=== PATIENT | male | born 1940 | race Caucasian/White ===

== ENCOUNTER 2017-09-21 14:39 | Emergency (ER) | payer OTHER ==
[~2017-09-21] VITALS: Ht 170.2 cm; Wt 102.4 kg
[~2017-09-21 14:39] MED LIST: LRT5 PO; STOMACH PILL
[2017-09-21 14:46] VITALS: TEMP 36.3; Ht 170.2 cm; Wt 102.4 kg
[2017-09-21] MEDS ORDERED: DEXAMETHASONE SOD INJ 4 MG/ML VIAL IV STA (15:17)
[2017-09-21] MEDS ORDERED: ACETAMINOPHEN 500 MG TAB PO STA (15:17)
--- NOTE | 2017-09-21 15:24 | EMERGENCY ROOM VISIT NOTE ---
History Report prepared by Rosemary: Oleksandr Virgen Under the Supervision of: Dr. Kaushik Olivier M.D. First contact with patient: 14:52 Chief Complaint: COUGH Stated Complaint: COUGH, HEADACHE Nursing Triage Summary: has been sick with cough and wheezing was started on prednisone and doxycicline and felt better until the steroids were completed. now with head ache cough and wheezing continues. History of Present Illness The patient is a 77 year old white male with no past medical history who presents to the ED with a cc of a constant productive cough beginning a week ago. Pt was evaluated by PCP and was given prednisone and doxycycline. He notes he finished prednisone yesterday and is still on doxycycline. Pt is using an inhaler at home, but it is not helping. Positive coughing up white phlegm and a headache. 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 A total of ten systems were reviewed and were otherwise negative. Past Medical & Surgical Medical Problems: (1) No Known Active Medical Problems Family History Patient reports no known family medical history. Social History Smoking Status: Former Smoker Marital Status: Housing Status: lives alone Occupation Status: retired Current/Historical Medications Scheduled Doxycycline Hyclate (Doxycycline Hyclate), 1 TAB PO BID Scheduled PRN Albuterol (Ventolin Hfa), 2 PUFFS INH QID PRN for Wheezing Albuterol Hfa (Ventolin Hfa), 2 PUFFS INH Q4-6HRS PRN for SOB/Wheezing Meloxicam (Mobic), 1-2 TABS PO DAILY PRN for Pain Allergies Coded Allergies: No Known Allergies (Verified , 10/28/02) Physical Exam Vital Signs Date Time Temp Pulse Resp B/P (MAP) Pulse Ox O2 Delivery O2 Flow Rate FiO2 09/21/17 17:23 54 18 144/89 96 Room Air 09/21/17 16:50 78 18 135/92 98 Room Air 09/21/17 16:24 60 09/21/17 15:47 95 Room Air 09/21/17 15:40 63 20 97 Room Air 09/21/17 15:00 98 Room Air 09/21/17 14:46 36.3 66 20 164/96 95 Room Air Physical Exam GENERAL: Awake, alert, well-appearing, NAD HENT: Normocephalic, atraumatic. EYES: Normal conjunctiva. Sclera non-icteric. NECK: Supple. No nuchal rigidity. FROM. RESPIRATORY: Diffuse inspiratory and expiratory wheezing throughout, no rhonchi , crackles CARDIAC: RRR, no MRG ABDOMEN: Soft, NTND, BS+ MSK: No chest wall TTP, no LE edema NEURO: GCS 15, CN 2-12 intact, moves all 4s on command SKIN: No rash or jaundice noted. Medical Decision & Procedures ER Provider Diagnostic Interpretation: X-ray: Per my interpretation, radiologist review. CHEST ONE VIEW PORTABLE CLINICAL HISTORY: EVALUATE RESPIRATORY DISTRESS.DYSPNEA COMPARISON STUDY: Chest radiograph September 02, 2016. FINDINGS: Lung volumes are normal. No pneumothorax or pleural effusion is present. There is no consolidation to suggest pneumonia. Pulmonary vascularity is normal. Cardiomediastinal silhouette is stable. IMPRESSION: No acute cardiopulmonary findings. Electronically signed by: Kelby Chamberlain M.D. 09/21/2017 3:36 PM Dictated Date/Time: 09/21/2017 3:35 PM Laboratory Results 09/21/17 15:55 Red Blood Count 5.17, Mean Corpuscular Volume 94.0, Mean Corpuscular Hemoglobin 32.3, Mean Corpuscular Hemoglobin Concent 34.4, Mean Platelet Volume 9.6, Neutrophils (%) (Auto) 60.2, Lymphocytes (%) (Auto) 24.8, Monocytes (%) (Auto) 13.2, Eosinophils (%) (Auto) 0.7, Basophils (%) (Auto) 0.2, Neutrophils # (Auto ) 6.35, Lymphocytes # (Auto) 2.61, Monocytes # (Auto) 1.39, Eosinophils # (Auto ) 0.07, Basophils # (Auto) 0.02 09/21/17 15:55 Test 09/21/17 15:55 09/21/17 16:53 White Blood Count 10.53 K/uL (4.8-10.8) Red Blood Count 5.17 M/uL (4.7-6.1) Hemoglobin 16.7 g/dL (14.0-18.0) Hematocrit 48.6 % (42-52) Mean Corpuscular Volume 94.0 fL (80-100) Mean Corpuscular Hemoglobin 32.3 pg (25-34) Mean Corpuscular Hemoglobin Concent 34.4 g/dl (32-36) Platelet Count 263 K/uL (130-400) Mean Platelet Volume 9.6 fL (7.4-10.4) Neutrophils (%) (Auto) 60.2 % Lymphocytes (%) (Auto) 24.8 % Monocytes (%) (Auto) 13.2 % Eosinophils (%) (Auto) 0.7 % Basophils (%) (Auto) 0.2 % Neutrophils # (Auto) 6.35 K/uL (1.4-6.5) Lymphocytes # (Auto) 2.61 K/uL (1.2-3.4) Monocytes # (Auto) 1.39 K/uL (0.11-0.59) Eosinophils # (Auto) 0.07 K/uL (0-0.5) Basophils # (Auto) 0.02 K/uL (0-0.2) RDW Standard Deviation 49.2 fL (36.4-46.3) RDW Coefficient of Variation 14.4 % (11.5-14.5) Immature Granulocyte % (Auto) 0.9 % Immature Granulocyte # (Auto) 0.09 K/uL (0.00-0.02) Prothrombin Time 10.3 SECONDS (9.0-12.0) Prothromb Time International Ratio 1.0 (0.9-1.1) Activated Partial Thromboplast Time 23.4 SECONDS (21.0-31.0) Partial Thromboplastin Ratio 0.9 Anion Gap 5.0 mmol/L (3-11) Est Creatinine Clear Calc Drug Dose 65.9 ml/min Estimated GFR () 77.2 Estimated GFR (Non- 66.6 BUN/Creatinine Ratio 26.9 (10-20) Calcium Level 9.0 mg/dl (8.5-10.1) Pro-B-Type Natriuretic Peptide 245 pg/ml (0-1800) Troponin I < 0.015 ng/ml (0-0.045) Laboratory results reviewed by me Medications Administered Medications (Trade) Dose Ordered Sig/Fausto Route Start Time Stop Time Status Last Admin Dose Admin Acetaminophen (Tylenol Tab) 1,000 mg NOW STAT PO 09/21/17 15:17 09/21/17 15:23 DC 09/21/17 15:50 1,000 MG Albuterol/ Ipratropium (Duoneb) 9 ml ONE ONCE INH 09/21/17 15:30 09/21/17 15:31 DC 09/21/17 15:40 9 ML Dexamethasone Sodium Phosphate (Decadron Inj) 10 mg NOW STAT IV 09/21/17 15:17 09/21/17 15:23 DC 09/21/17 15:50 10 MG Magnesium Oxide (Mag-Ox Tab) 800 mg ONE STAT PO 09/21/17 16:24 09/21/17 16:29 DC 09/21/17 16:47 800 MG Potassium Chloride (Klor-Con M10) 40 meq NOW STAT PO 09/21/17 16:24 09/21/17 16:29 DC 09/21/17 16:48 40 MEQ Sodium Chloride 500 ml @ 999 mls/hr Q31M STAT IV 09/21/17 16:24 09/21/17 16:54 DC 09/21/17 16:48 999 MLS/HR ECG Indication: SOB/dyspnea Rate (beats per minute): 60 Rhythm: normal sinus Findings: ST depression (Lateral, trace), other (Wide QRS) Comparison ECG Date: 10/20/2001 Change: no significant change Change: Second EKG in same visit: a lot of motion artifact. Looks unchanged: Sinus brany with a rate of 58 and wide QRS. ED Course 1512: The patient was evaluated in room C04. A complete history and physical exam was performed. 164: I reevaluated the patient. He is feeling better. He is going to get a second EKG, repeat troponin, and an ambulatory trial. 1724: The nurse informed me the patient passed his ambulatory trial and would like to go home. 1755: I reevaluated the patient. Discussed results and discharge instructions: he verbalized understanding and agreement. The patient is ready for discharge. Medical Decision The patient is a 77 year old white male with no past medical history who presents to the ED with a cc of a constant productive cough beginning a week ago. Differential diagnosis: Etiologies such as infections, reactive airway disease, pneumonia, pneumothorax , COPD, CHF, cardiac ischemia, pulmonary embolism, musculoskeletal, gastrointestinal, as well as others were entertained. Patient was seen and evaluated at the bedside. Patient purportedly has no past medical problems but has had some cough. On exam the patient is have inspiratory and expiratory wheezing. 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 Patient denies any allergies. Patient denies any smoking although he did smoke cigars in the past but many years ago. Patient was recently seen by his PCP and prescribed doxycycline as well as prednisone. Patient has completed the prednisone but still does have some doxycycline. Patient did have blood work that was completed along with EKG, troponin, chest x -ray. Patient's EKG did show subtle lateral ST depressions. The patient does not complain of any chest pain or shortness of breath at this time. Patient did have troponin 2 which were negative. Patient did have an ambulatory trial and the patient denied any shortness breath or chest pain. Of note patient did receive a DuoNeb as well as steroids. Upon reassessment the patient was stating that he wanted to leave although he was offered admission given the subtle ST changes on his EKG. Admittedly the patient was otherwise asymptomatic and the patient was told he needs follow-up with his PCP. Again we did discuss that he could stay in the hospital for further evaluation and treatment. He declined at this time. Patient was told he needs to follow-up with his primary care for his EKG changes as well as for his possible lung disease. Patient was given an inhaler was told to continue his doxycycline at home. Chest x-ray was negative. Patient did have mild hypokalemia and was patient was repleted with magnesium as well as potassium. Again the patient was recommended to stay in the hospital however he declined. With shared decision making the patient was going to follow-up with his PCP and return if he had any worsening symptoms. Patient was given strict follow-up, discharge, and return precautions. All questions were answered. Patient was deemed suitable for outpatient follow-up at this time. Patient agreed with the plan of care and was safely discharged home. Medication Reconcilliation Current Medication List: was personally reviewed by me Blood Pressure Screening Patient's blood pressure: Elevated blood pressure Blood pressure disposition: Elevated BP felt to be situational Impression Primary Impression: Acute bronchitis Additional Impressions: Hypokalemia ST segment changes on electrocardiogram Scribe Attestation The scribe's documentation has been prepared under my direction and personally reviewed by me in its entirety. I confirm that the note above accurately reflects all work, treatment, procedures, and medical decision making performed by me. Departure Information Dispostion Home / Self-Care Prescriptions Albuterol (Ventolin Hfa) 60 Puffs/5400 Mcg Aers 2 PUFFS INH QID Y for Wheezing for 5 Days, #1 INHALER Prov: Kaushik Olivier M.D. 09/21/17 Referrals No Doctor, Assigned (PCP) Forms HOME CARE DOCUMENTATION FORM, IMPORTANT VISIT INFORMATION Patient Instructions Bronchitis Chronic Dc, My [facility] Additional Instructions Please return to the emergency department if you have worsening or recurrent symptoms not amenable to at-home treatment. Please call for a follow-up appointment with her primary care physician. Please take your medications as prescribed. If you have other concerns and/or complaints please feel free to also call your primary care physician's office or return the ED for further evaluation, management, and treatment. Take your medications as prescribed. Please use your inhaler over the next several days. You may take 2 puffs every 4 hours the first day, 2 puffs every 6 hours the second day, 1 puff every 4 hours the third day, and then 1 puff every 6 hours the fourth day. Please follow-up with your primary care physician discuss the EKG changes as well as further workup and treatment for possible lung disease. You have been examined and treated today on an emergency basis only. This is not a substitute for, or an effort to provide, complete comprehensive medical care. It is impossible to recognize and treat all injuries or illnesses in a single emergency department visit. It is therefore important that you follow up closely with [facility], your PCP, and/or your specialist(s). Call as soon as possible for an appointment. Thank you for your time and consideration. I look forward to speaking with you again soon. Please don't hesitate to call us if you have any questions. Problem Qualifiers Primary Impression: Acute bronchitis Bronchitis organism: unspecified organism Qualified Codes: J20.9 - Acute bronchitis, unspecified
[2017-09-21] MEDS ORDERED: ALBUT/IPRATROP 3MG/0.5MG NEB 3 ML VIAL INH ONE (15:30)
--- NOTE | 2017-09-21 15:37 | DIAGNOSTIC IMAGING REPORT ---
CHEST ONE VIEW PORTABLE CLINICAL HISTORY: EVALUATE RESPIRATORY DISTRESS.DYSPNEA COMPARISON STUDY: Chest radiograph September 02, 2016. FINDINGS: Lung volumes are normal. No pneumothorax or pleural effusion is present. There is no consolidation to suggest pneumonia. Pulmonary vascularity is normal. Cardiomediastinal silhouette is stable. IMPRESSION: No acute cardiopulmonary findings. Electronically signed by: Kelby Chamberlain M.D. 09/21/2017 3:36 PM Dictated Date/Time: 09/21/2017 3:35 PM
[2017-09-21 15:40] VITALS: PULSE 63; O2SAT 97
[2017-09-21 15:47] VITALS: O2SAT 95
[2017-09-21] MEDS ORDERED: MELO7.5T6 PO (15:53)
[2017-09-21] MEDS ORDERED: DOXY1TAB6 PO (15:53)
[2017-09-21] MEDS ORDERED: VNTHFA/IN INH (15:53)
[2017-09-21 16:03] LABS: BASO % 0.2 %; BASO ABS # 0.02 K/uL (0-0.2); EOS % 0.7 %; EOS ABS # 0.07 K/uL (0-0.5); HEMATOCRIT 48.6 % (42-52); HEMOGLOBIN 16.7 g/dL (14.0-18.0); IG# 0.09 K/uL (0.00-0.02); LYMPH % 24.8 %; LYMPH ABS # 2.61 K/uL (1.2-3.4); MEAN CORPUSCULAR HEMOGLOBIN 32.3 pg (25-34); MEAN CORPUSCULAR HGB CONC 34.4 g/dl (32-36); MEAN PLATELET VOLUME 9.6 fL (7.4-10.4); MONO % 13.2 %; MONO ABS # 1.39 K/uL (0.11-0.59); NEUT % 60.2 %; NEUT ABS # 6.35 K/uL (1.4-6.5); PLATELET COUNT 263 K/uL (130-400); RED CELL DISTRIBUTION WIDTH CV 14.4 % (11.5-14.5); RED CELL DISTRIBUTION WIDTH SD 49.2 fL (36.4-46.3); WHITE BLOOD COUNT 10.53 K/uL (4.8-10.8)
[2017-09-21 16:13] LABS: PTT PATIENT 23.4 SECONDS (21.0-31.0)
[2017-09-21 16:20] LABS: BLOOD UREA NITROGEN 29 mg/dl (7-18); CARBON DIOXIDE 29 mmol/L (21-32); CREATININE 1.07 mg/dl (0.60-1.40); GLUCOSE 95 mg/dl (70-99); SODIUM 141 mmol/L (136-145)
[2017-09-21] MEDS ORDERED: MAGNESIUM OXIDE 400 MG TAB PO STA (16:24)
[2017-09-21] MEDS ORDERED: SODIUM CHLORIDE 0.9% 500ML 500 ML IV STA (16:24)
[2017-09-21] MEDS ORDERED: POTASSIUM CHLORIDE 10 MEQ TABCR PO STA (16:24)
[2017-09-21 17:23] VITALS: BP 144/89; PULSE 54; O2SAT 96
[2017-09-21] MEDS ORDERED: PRVHFAIN INH (18:03)
== END 2017-09-21 18:00 | disposition home or self-care (01) ==
LOC: C.EDB 14:40 → C.EDC 18:00
DX: J20.9 Acute bronchitis, unspecified (principal); E87.6 Hypokalemia; R94.31 Abnormal electrocardiogram [ECG] [EKG]; Z87.891 Personal history of nicotine dependence

== ENCOUNTER 2017-09-23 20:17 | Emergency (ER) | payer OTHER ==
[~2017-09-23] VITALS: Ht 167.6 cm; Wt 108.7 kg
[~2017-09-23 20:17] MED LIST changes: -FLUT0.15 NAE
[2017-09-23 20:22] VITALS: TEMP 36.5; Ht 167.6 cm; Wt 108.7 kg
[2017-09-23] MEDS ORDERED: ALBUTEROL 0.083% NEBU SOLN 3 ML VIAL INH STA (20:34)
--- NOTE | 2017-09-23 20:57 | DIAGNOSTIC IMAGING REPORT ---
CHEST ONE VIEW PORTABLE CLINICAL HISTORY: Atypical chest pain COMPARISON STUDY: 09/21/2017 FINDINGS: The cardiac and mediastinal contours are normal. There is no evidence of focal pulmonary consolidation. There is no evidence of failure. No pleural effusions are visualized.[ IMPRESSION: No active disease in the chest. Electronically signed by: Vickey Ryder M.D. 09/23/2017 8:56 PM Dictated Date/Time: 09/23/2017 8:56 PM
[2017-09-23 21:23] LABS: BASO % 0.2 %; BASO ABS # 0.03 K/uL (0-0.2); EOS % 1.2 %; EOS ABS # 0.15 K/uL (0-0.5); HEMATOCRIT 45.8 % (42-52); HEMOGLOBIN 15.7 g/dL (14.0-18.0); IG# 0.45 K/uL (0.00-0.02); LYMPH % 28.1 %; LYMPH ABS # 3.45 K/uL (1.2-3.4); MEAN CELL VOLUME 93.3 fL (80-100); MEAN CORPUSCULAR HGB CONC 34.3 g/dl (32-36); MEAN PLATELET VOLUME 9.5 fL (7.4-10.4); MONO % 8.6 %; MONO ABS # 1.06 K/uL (0.11-0.59); NEUT % 58.2 %; NEUT ABS # 7.14 K/uL (1.4-6.5); PLATELET COUNT 268 K/uL (130-400); RED CELL DISTRIBUTION WIDTH CV 14.5 % (11.5-14.5); RED CELL DISTRIBUTION WIDTH SD 49.3 fL (36.4-46.3); WHITE BLOOD COUNT 12.28 K/uL (4.8-10.8)
[2017-09-23] MEDS ORDERED: FLUT0.15 NAE (21:26)
[2017-09-23 21:36] LABS: ALBUMIN 3.4 gm/dl (3.4-5.0); ALT/SGPT 78 U/L (12-78); AST/SGOT 29 U/L (15-37); BLOOD UREA NITROGEN 24 mg/dl (7-18); CALCIUM 8.5 mg/dl (8.5-10.1); CARBON DIOXIDE 27 mmol/L (21-32); CREATININE 1.08 mg/dl (0.60-1.40); GLUCOSE 104 mg/dl (70-99); LIPASE 169 U/L (73-393); POTASSIUM 3.1 mmol/L (3.5-5.1); SODIUM 142 mmol/L (136-145)
[2017-09-23 21:47] LABS: ALKALINE PHOSPHATASE 97 U/L (45-117); CKMB 1.9 ng/ml (0.5-3.6)
[2017-09-23] MEDS ORDERED: POTASSIUM CHLORIDE 10 MEQ TABCR PO STA (22:38)
[2017-09-23 23:07] VITALS: O2SAT 96
--- NOTE | 2017-09-23 23:56 | EMERGENCY ROOM VISIT NOTE ---
History Report prepared by Rosemary: Yamel Yepez Under the Supervision of: Dr. Jerson Horner M.D. First contact with patient: 20:28 Chief Complaint: CHEST PAIN Stated Complaint: CHEST PAIN History of Present Illness The patient is a 77 year old male who presents to the Emergency Room with complaints of constant left sided chest pain beginning this afternoon. The patient states that he was seen here 2 days ago for bronchitis and was discharged home. He reports that he followed up at his doctor and they found no issues but this afternoon he started to develop left sided chest pain. The patient complains of a cough, headache, cold feet, and shortness of breath. He notes that he has a history of a hiatal hernia and no history of blood clots. The patient denies any injury, fall, nausea, vomiting, and abdominal pain. He notes he has no chest pain with exertion. Source of History: patient Onset: this afternoon Position: chest (left) Timing: constant Modifying Factors (Worsening): exertion Associated Symptoms: + headache, + SOB, No nausea, No vomiting, No abdominal pain Note: Pt complains of cold feet. Review of Systems See HPI for pertinent positives & negatives. A total of 10 systems reviewed and were otherwise negative. Past Medical & Surgical Medical Problems: (1) No Known Active Medical Problems Family History Patient reports no known family medical history. Social History Smoking Status: Former Smoker Marital Status: Housing Status: lives alone Occupation Status: retired Current/Historical Medications Scheduled Doxycycline Hyclate (Doxycycline Hyclate), 1 TAB PO BID Fluticasone Propionate (Nasal) (Flonase Allergy Relief), 1 SPRAY MILLICENT DAILY Scheduled PRN Albuterol (Ventolin Hfa), 2 PUFFS INH QID PRN for Wheezing Meloxicam (Mobic), 1-2 TABS PO DAILY PRN for Pain Allergies Coded Allergies: No Known Allergies (Verified , 09/23/17) Physical Exam Vital Signs Date Time Temp Pulse Resp B/P (MAP) Pulse Ox O2 Delivery O2 Flow Rate FiO2 09/24/17 00:24 130/76 09/24/17 00:15 66 24 09/24/17 00:01 116/85 09/24/17 00:00 62 14 09/23/17 23:45 73 09/23/17 23:31 141/90 09/23/17 23:30 77 21 09/23/17 23:15 64 20 09/23/17 23:07 58 16 109/75 96 Room Air 09/23/17 23:00 58 12 96 09/23/17 21:46 73 16 113/80 98 Room Air 09/23/17 21:07 65 09/23/17 20:22 36.5 72 20 138/89 97 Room Air Physical Exam General: Non-ill appearing older male, mildly anxious, in no acute distress. HEENT: Normal cephalic atraumatic. Pupils are equal round and reactive to light. Extraocular movements are intact. Oropharynx is pink with moist mucous membranes. No swelling of the mouth lips or tongue. Neck: Supple with a midline trachea. No meningeal signs or stiffness, no JVD or bruits. No Stridor. Chest: Clear to auscultation bilaterally. No wheezes or rhonchi. No increased work of breathing. Heart: regular rate and rhythm. Abdomen: Soft nontender, nondistended without rebound guarding or rigidity. Extremities: No cyanosis clubbing or edema. No calf tenderness or assymetry Spine/Back. Non tender to palpation. No CVA tenderness Skin: Good turgor without rashes. Neurologic exam: Cranial nerves two through 12 are intact. Motor and sensation are intact and symmetrical throughout. Medical Decision & Procedures ER Provider Diagnostic Interpretation: X-ray results as stated below per interpretation by me and the radiologist: CHEST ONE VIEW PORTABLE FINDINGS: The cardiac and mediastinal contours are normal. There is no evidence of focal pulmonary consolidation. There is no evidence of failure. No pleural effusions are visualized.[ IMPRESSION: No active disease in the chest. Electronically signed by: Vickey Ryder M.D. 09/23/2017 8:56 PM Dictated Date/Time: 09/23/2017 8:56 PM Laboratory Results 09/23/17 21:07 Red Blood Count 4.91, Mean Corpuscular Volume 93.3, Mean Corpuscular Hemoglobin 32.0, Mean Corpuscular Hemoglobin Concent 34.3, Mean Platelet Volume 9.5, Neutrophils (%) (Auto) 58.2, Lymphocytes (%) (Auto) 28.1, Monocytes (%) (Auto) 8.6, Eosinophils (%) (Auto) 1.2, Basophils (%) (Auto) 0.2, Neutrophils # (Auto) 7.14, Lymphocytes # (Auto) 3.45, Monocytes # (Auto) 1.06, Eosinophils # (Auto) 0.15, Basophils # (Auto) 0.03 09/23/17 21:07 Test 09/23/17 21:07 09/23/17 23:13 White Blood Count 12.28 K/uL (4.8-10.8) Red Blood Count 4.91 M/uL (4.7-6.1) Hemoglobin 15.7 g/dL (14.0-18.0) Hematocrit 45.8 % (42-52) Mean Corpuscular Volume 93.3 fL (80-100) Mean Corpuscular Hemoglobin 32.0 pg (25-34) Mean Corpuscular Hemoglobin Concent 34.3 g/dl (32-36) Platelet Count 268 K/uL (130-400) Mean Platelet Volume 9.5 fL (7.4-10.4) Neutrophils (%) (Auto) 58.2 % Lymphocytes (%) (Auto) 28.1 % Monocytes (%) (Auto) 8.6 % Eosinophils (%) (Auto) 1.2 % Basophils (%) (Auto) 0.2 % Neutrophils # (Auto) 7.14 K/uL (1.4-6.5) Lymphocytes # (Auto) 3.45 K/uL (1.2-3.4) Monocytes # (Auto) 1.06 K/uL (0.11-0.59) Eosinophils # (Auto) 0.15 K/uL (0-0.5) Basophils # (Auto) 0.03 K/uL (0-0.2) RDW Standard Deviation 49.3 fL (36.4-46.3) RDW Coefficient of Variation 14.5 % (11.5-14.5) Immature Granulocyte % (Auto) 3.7 % Immature Granulocyte # (Auto) 0.45 K/uL (0.00-0.02) Prothrombin Time 10.4 SECONDS (9.0-12.0) Prothromb Time International Ratio 1.0 (0.9-1.1) Activated Partial Thromboplast Time 24.0 SECONDS (21.0-31.0) Partial Thromboplastin Ratio 0.9 D-Dimer 360 ug/L FEU (0-500) Anion Gap 8.0 mmol/L (3-11) Est Creatinine Clear Calc Drug Dose 66.2 ml/min Estimated GFR () 76.3 Estimated GFR (Non- 65.9 BUN/Creatinine Ratio 22.5 (10-20) Calcium Level 8.5 mg/dl (8.5-10.1) Total Bilirubin 0.5 mg/dl (0.2-1) Direct Bilirubin < 0.1 mg/dl (0-0.2) Aspartate Amino Transf (AST/SGOT) 29 U/L (15-37) Alanine Aminotransferase (ALT/SGPT) 78 U/L (12-78) Alkaline Phosphatase 97 U/L (45-117) Total Creatine Kinase 105 U/L (39-308) Creatine Kinase MB 1.9 ng/ml (0.5-3.6) Creatine Kinase MB Ratio 1.8 (0-3.0) Total Protein 7.0 gm/dl (6.4-8.2) Albumin 3.4 gm/dl (3.4-5.0) Lipase 169 U/L (73-393) Thyroid Stimulating Hormone (TSH) 3.160 uIu/ml (0.300-4.500) Bedside Troponin I < 0.030 ng/ml (0-0.045) Laboratory studies as stated above per my review. Medications Administered Medications (Trade) Dose Ordered Sig/Fausto Route Start Time Stop Time Status Last Admin Dose Admin Albuterol Sulfate (Ventolin 0.083% 2.5MG/3ML Neb) 2.5 mg NOW STAT INH 09/23/17 20:34 09/23/17 20:37 DC 09/23/17 21:15 2.5 MG Potassium Chloride (Klor-Con M10) 40 meq NOW STAT PO 09/23/17 22:38 09/23/17 22:40 DC 09/23/17 23:13 40 MEQ ECG Indication: chest pain Rate (beats per minute): 63 Rhythm: normal sinus Findings: no acute ischemic change, other (nonspecifiic intraventricular conduction delay) Change: no significant change Change: EKG #2: Sinus Bradycardia, 56, poor baseline, nonspecific ST abnormality. No significant change compared to EKG #1. ED Course 2027: Past medical records reviewed. The patient was evaluated in room A3, and a complete history and physical examination were performed. 2033: Albuterol Sulfate 2.5mg INH. 2238: Potassium Chloride 40meq PO. 2239: I reevaluated the patient and he is feeling comfortable. He will be getting another EKG. 0022: Upon reevaluation, the patient is doing well. I discussed the results and treatment plan with him. He verbalized agreement of the treatment plan. The patient was discharged home. Medical Decision Differentials include, but are not limited to; ACS, PE, pneumonia, anxiety, bronchitis, electrolyte or metabolic abnormality. This patient comes in as described above. He was placed in room A3. He has had cough and bronchitis type symptoms use seen here the other day for similar. At that time had a nonischemic EKG as well as 2 negative troponins. He saw his regular doctor today this set him up for stress test and he went home started having chest pain. he does have a lot of anxiety. He looks well on exam 2 EKGs were done here and do not show any change compared to old . he has some nonspecific interventricular conduction delay and some nausea ST segments laterally. There is no progression when compared to EKG 2 to 1. He had 2 negative troponins here. chest x-ray is unremarkable. d-dimer was within normal limits and in a low pretest probably setting makes PE highly unlikely. He has no acute electrolyte or metabolic abnormalities. He would like to go home. I think this is reasonable and will have him rest and drink plenty fluids return if: Worsening of symptoms, fever chills, any new problems or concerns. They're happy the plan and discharged home. Medication Reconcilliation Current Medication List: was personally reviewed by me Blood Pressure Screening Patient's blood pressure: Elevated blood pressure Blood pressure disposition: Elevated BP felt to be situational Impression Primary Impression: Chest pain Scribe Attestation The scribe's documentation has been prepared under my direction and personally reviewed by me in its entirety. I confirm that the note above accurately reflects all work, treatment, procedures, and medical decision making performed by me. Departure Information Dispostion Home / Self-Care Referrals Johana Jordan C.R.N.P (PCP) Forms Call Back Authorization, HOME CARE DOCUMENTATION FORM, IMPORTANT VISIT INFORMATION Patient Instructions My [facility] Additional Instructions Rest Drink plenty of fluids Return if: worsening of symptoms, increasing pain, shortness of breath, any new problems or concerns Follow-up with your doctor in 1-2 days for recheck
[2017-09-24 00:15] VITALS: PULSE 66
[2017-09-24 00:24] VITALS: BP 130/76
== END 2017-09-24 00:27 | disposition home or self-care (01) ==
LOC: C.EDB 20:17 → C.EDA 09-24 00:27
DX: R07.9 Chest pain, unspecified (principal); R06.02 Shortness of breath; Z87.891 Personal history of nicotine dependence

== ENCOUNTER → 2017-09-23 | Outpatient (CLI) | payer OTHER ==
[~2017-09-23] MED LIST changes: +DOXY1TAB6 PO; +FLUT0.15 NAE; -LRT5 PO; +MELO7.5T6 PO; +PRVHFAIN INH; -STOMACH PILL; +VNTHFA/IN INH
[2017-09-23 17:33] LABS: BLOOD UREA NITROGEN 25 mg/dl (7-18); CALCIUM 8.6 mg/dl (8.5-10.1); CARBON DIOXIDE 26 mmol/L (21-32); CREATININE 1.07 mg/dl (0.60-1.40); GLUCOSE 105 mg/dl (70-99); POTASSIUM 3.4 mmol/L (3.5-5.1); SODIUM 141 mmol/L (136-145)
== END | disposition home or self-care (01) ==
LOC: C.LABPVFM 16:05
PROVIDERS: ATTEND Nurse Practitioner
DX: E87.6 Hypokalemia (principal)

== ENCOUNTER → 2017-10-07 | Outpatient (CLI) | payer OTHER ==
[~2017-10-07] MED LIST changes: +FLUT0.15 NAE; -PRVHFAIN INH; -VNTHFA/IN INH
== END | disposition home or self-care (01) ==
LOC: C.LABPVFM 09:43
PROVIDERS: ATTEND Nurse Practitioner
DX: E87.6 Hypokalemia (principal)

== ENCOUNTER 2021-09-21 15:46 | Inpatient (IN) ==
[2021-09-21] MEDS ORDERED: SODIUM CHLORIDE 0.9% 500 ML IV STA (16:06)
[2021-09-21] MEDS ORDERED: SODIUM CHLORIDE 0.9% 1000ML 1,000 ML IV STA (16:06)
--- NOTE | 2021-09-21 16:43 | XRay Report ---
XR chest 1V portable HISTORY: Right upper quadrant abdominal pain. COMPARISON: Chest 03/23/2021. FINDINGS: No pneumothorax. No pleural effusions. There is mild interstitial thickening most process o f the lung bases. This is similar to the prior study and is likely chronic. No new focal lung consoli dations to suggest pneumonia. No evidence for pulmonary edema. The heart remains top normal in size. IMPRESSION: No significant change compared to the prior study. No acute process. ACT 112: Negative or not required by law. Electronically signed by: Avelino Porras M.D. 09/21/2021 4:42 PM
[2021-09-21 16:58] LABS: Basophils # (auto) 0.03 K/uL (0-0.2); Basophils % (auto) 0.2 %; Eosinophils # (auto) 0.08 K/uL (0-0.5); Eosinophils % (auto) 0.6 %; Hematocrit (blood only) 44.6 % (42-52); Hemoglobin 14.2 g/dL (14.0-18.0); Immature Granulocytes # (auto) 0.06 K/uL (0.00-0.02); Immature Granulocytes % (auto) 0.4 %; Lymphocytes # (auto) 0.88 K/uL (1.2-3.4); Lymphocytes % (auto) 6.5 %; Mean Corpuscular Hemoglobin 31.2 pg (25-34); Mean Corpuscular Hgb Conc 31.8 g/dL (32-36); Mean Platelet Volume 9.5 fL (7.4-10.4); Monocytes % (auto) 8.9 %; Neutrophils # (auto) 11.26 K/uL (1.4-6.5); Neutrophils % (auto) 83.4 %; Platelet Count 320 K/uL (130-400); RDW Standard Deviation 54.1 fL (36.4-46.3); Red Blood Count 4.55 M/uL (4.7-6.1); White Blood Count 13.51 K/uL (4.8-10.8)
[2021-09-21 17:32] LABS: Alanine Aminotransferase 127 (12-78); Albumin Level 3.2 gm/dl (3.4-5.0); Aspartate Aminotransferase 175 U/L (15-37); BUN Creatinine Ratio 17.3 (10-20); Blood Urea Nitrogen 21 mg/dl (7-18); Carbon Dioxide 30 mmol/L (21-32); Chloride 110 mmol/L (98-107); Creatinine Clr Calc Pharmacy 53.6 ml/min; Est GFR (Non-African American) 55.3 ml/min; Glucose 116 mg/dl (70-99); Lipase 115 U/L (73-393); Potassium 3.7 mmol/L (3.5-5.1); Sodium 144 mmol/L (136-145)
[2021-09-21 17:37] LABS: Albumin Globulin Ratio 0.8 (0.9-2); Alkaline Phosphatase 175 U/L (45-117); Bilirubin,Total 0.9 mg/dl (0.2-1); Globulin 3.8 gm/dl (2.5-4.0); Troponin I < 0.015 ng/ml (0-0.045)
--- NOTE | 2021-09-21 18:03 | Emergency Department Note ---
Impression & Plan Epigastric abdominal pain, Near syncope, Transaminitis ED Provider Note CHIEF COMPLAINT: Abdominal pain HISTORY OF PRESENT ILLNESS: This 81-year-old male patient presents to the emergency department presents emergency department with complaints of right upper quadrant abdominal pain. Patient states he drove himself to the [facility] today when the pain became severe after lunch. He states she ate a "half of a hoagie" and subsequently developed some nausea and severe pain. The patient feels that this happened one other time a few weeks ago and he may have had a fever at that time. He states he vomited and the pain seemed to settle down. He has never had surgery on his abdomen. He has never had any blood in the vomit. He denies any difficulty with his bowel movements. He states he might be a little bit constipated. He states he has had 2 COVID vaccinations and his booster. REVIEW OF SYSTEMS: A review of systems was performed with positives and pertinen t negatives listed in the history of present illness. 10 systems were reviewed and are otherwise negative. ALLERGIES: see below MEDICATIONS: see below PMH: see below SOCIAL HISTORY: see below DDx: Appendicitis, diverticulitis, UTI, obstruction, mesenteric ischemia, aortic pathology, inflammatory bowel disease, renal colic, PUD, pancreatitis, biliary pathology, hernia, volvulus, constipation, as well as other pathologies. PHYSICAL EXAM: Vital signs reviewed. General: Well-appearing 81 yo male, in no significant distress. HEENT: No scleral icterus, PERRLA, neck supple. Atraumatic. Cardiovascular: Regular rate and rhythm, no extra sounds. Pulmonary: Clear to auscultation bilaterally, normal work of breathing. Abdomen: Soft, tender to palpation in the right upper quadrant, no rebound, no guarding, nondistended, positive bowel sounds. Musculoskeletal: Atraumatic, no peripheral edema. Neurologic: Patient awake alert and oriented x 3 Skin: Warm, dry, no rash EMERGENCY DEPARTMENT COURSE/MDM: This pt was evaluated and appeared to be in no distress. IV access was obtained and lab work was drawn. Pt was hydrated with NSS. Exam is significant for RUQ tenderness, therefore US was performed. Lab work reveals elevated AST/ALT and normal total bili. US is significant for GB wall thickening and sludge, no clear acute cholecysytitis. Pt was medicated with 2gm of IV mefoxin for coverage and case was d/w the medicine service for further evaluation. Dr. Bowles of surgery was notified by phone of the case and will consult on the patient. Pt was aware of the plan and agrees. MONITORING: An order for cardiac monitoring was placed and the patient is noted to be in a normal sinus rhythm at 69 beats per minute. RADIOLOGY: See below EKG: sinus rhythm with PAC at 72 bpm, nonspecific intraventricular conduction delay. Non specific ST abnl. QTc 459. PACs are new from 09/23/17 DISPOSITION: hospitalist evaluation Past Med/Surg History Medical History (Updated 09/26/21 @ 09:00 by Blanche Rivero MD) Elevated systolic blood pressure reading without diagnosis of hypertension Hypokalemia Prostatitis Solitary pulmonary nodule Urinary hesitancy Surgical History H/O knee surgery H/O repair of rotator cuff Family History Family/Other No problems noted. Other No pertinent family history Denies family history of Ovarian cancer Prostate cancer Diabetes Myocardial infarction Breast cancer Colorectal cancer Hypertension Social History Smoking Status: Never smoker Tobacco Type: Cigarettes Second Hand Exposure: No; Hx Alcohol Use: Yes Hx Substance Use: No Preferred Language: [place] Communication Ability: Effective Silverware Supervisor Required: No Beliefs That Will Affect Care: None marital status: Current Living Situation: Alone Current Living Situation Comment: pt states his daughter jessica lives nearby and is able to help care for him current occupational status: retired How many Children do You have: 1 Other Information That Helps Us Care for You: No Feels Safe at Home: Yes Safety Concerns: Feels Safe At This Time Childhood Exposure to Second-Hand Smoke: Yes caffeine: Yes (soda) Dental Care, Regularly: No Physical Activity Frequency: Does not Exercise Seatbelt Use: never Sunscreen Use: No Assistive Devices: None Allergies Allergies Allergy/AdvReac Type Severity Reaction Status Date / Time No Known Allergies Allergy Verified 09/21/21 17:20 Home Meds Home Medications Medication Instructions Recorded Confirmed lisinopril 5 mg tablet 5 mg PO QAM 09/21/21 09/21/21 omeprazole 20 mg capsule,delayed 20 mg PO DAILY PRN 09/21/21 09/21/21 release Results & Data (ED) Vital Signs Vital Signs - 24 hr 09/21/21 15:50 09/21/21 16:31 09/21/21 17:08 Temperature 36.3 C L Temperature Source Oral Pulse Rate 83 Pulse Rate [Left Apical] 66 69 Pulse Rhythm [Left Apical] Regular Pulse Strength [Left Apical] Normal Respiratory Rate 16 20 16 Respiratory Effort / Characteristics Non-Labored Non-Labored Respiratory Depth Normal Normal Blood Pressure 145/94 H Blood Pressure [Right Arm] 134/94 124/84 Blood Pressure Mean 111 Blood Pressure Mean [Right Arm] 107 97 Pulse Oximetry 95 94 95 Oxygen Delivery Method Room Air Room Air Room Air Sepsis Recent Fever Within 48 Hours No Sepsis New/Unexplained Change in Mental Status No Sepsis Action Taken by Nursing No Action Required Home Medications Current Medication List: was personally reviewed by me Laboratory Data Attestation: I reviewed the patient's lab results. Result diagrams: 09/25/21 08:02 09/25/21 08:02 Lab Results 09/21/21 09/21/21 09/21/21 Range/Units 16:40 16:40 19:45 WBC 13.51 H (4.8-10.8) K/uL RBC 4.55 L (4.7-6.1) M/uL Hgb 14.2 (14.0-18.0) g/dL Hct 44.6 (42-52) % MCV 98.0 (80-100) fL MCH 31.2 (25-34) pg MCHC 31.8 L (32-36) g/dL RDW Std Deviation 54.1 H (36.4-46.3) fL RDW Coeff of Arturo 15.0 H (11.5-14.5) % Plt Count 320 (130-400) K/uL MPV 9.5 (7.4-10.4) fL Immature Gran % (Auto) 0.4 % Neut % (Auto) 83.4 % Lymph % (Auto) 6.5 % Claiborne % (Auto) 8.9 % Eos % (Auto) 0.6 % Baso % (Auto) 0.2 % Neut # (Auto) 11.26 H (1.4-6.5) K/uL Lymph # (Auto) 0.88 L (1.2-3.4) K/uL Claiborne # (Auto) 1.20 H (0.11-0.59) K/uL Eos # (Auto) 0.08 (0-0.5) K/uL Baso # (Auto) 0.03 (0-0.2) K/uL Immature Gran # (Auto) 0.06 H (0.00-0.02) K/uL Sodium 144 (136-145) mmol/L Potassium 3.7 (3.5-5.1) mmol/L Chloride 110 H (98-107) mmol/L Carbon Dioxide 30 (21-32) mmol/L Anion Gap 4.0 (3-11) BUN 21 H (7-18) mg/dl Creatinine 1.22 (0.6-1.4) mg/dl Est Cr Clr Drug Dosing 53.6 ml/min Est GFR ( Amer) 64.0 ml/min Est GFR (Non-Af Amer) 55.3 ml/min BUN/Creatinine Ratio 17.3 (10-20) Glucose 116 H (70-99) mg/dl Calcium 9.0 (8.5-10.1) mg/dl Total Bilirubin 0.9 (0.2-1) mg/dl AST 175 H (15-37) U/L ALT 127 H (12-78) Alkaline Phosphatase 175 H D (45-117) U/L Troponin I < 0.015 (0-0.045) ng/ml Total Protein 7.0 (6.4-8.2) gm/dl Albumin 3.2 L (3.4-5.0) gm/dl Globulin 3.8 (2.5-4.0) gm/dl Albumin/Globulin Ratio 0.8 L (0.9-2) Lipase 115 (73-393) U/L Urine Color Urine Appearance (Clear) Urine pH (4.5-7.5) Ur Specific Pullman (1.000-1.030) Urine Protein (Negative) Urine Glucose (UA) (Negative) Urine Ketones (Negative) Urine Blood (Negative) Urine Nitrite (Negative) Urine Bilirubin (Negative) Urine Urobilinogen (Negative) Ur Leukocyte Esterase (Negative) SARS-CoV-2, RNA, NAAT NEGATIVE (NEGATIVE) 09/21/21 Range/Units 20:20 WBC (4.8-10.8) K/uL RBC (4.7-6.1) M/uL Hgb (14.0-18.0) g/dL Hct (42-52) % MCV (80-100) fL MCH (25-34) pg MCHC (32-36) g/dL RDW Std Deviation (36.4-46.3) fL RDW Coeff of Arturo (11.5-14.5) % Plt Count (130-400) K/uL MPV (7.4-10.4) fL Immature Gran % (Auto) % Neut % (Auto) % Lymph % (Auto) % Claiborne % (Auto) % Eos % (Auto) % Baso % (Auto) % Neut # (Auto) (1.4-6.5) K/uL Lymph # (Auto) (1.2-3.4) K/uL Claiborne # (Auto) (0.11-0.59) K/uL Eos # (Auto) (0-0.5) K/uL Baso # (Auto) (0-0.2) K/uL Immature Gran # (Auto) (0.00-0.02) K/uL Sodium (136-145) mmol/L Potassium (3.5-5.1) mmol/L Chloride (98-107) mmol/L Carbon Dioxide (21-32) mmol/L Anion Gap (3-11) BUN (7-18) mg/dl Creatinine (0.6-1.4) mg/dl Est Cr Clr Drug Dosing ml/min Est GFR ( Amer) ml/min Est GFR (Non-Af Amer) ml/min BUN/Creatinine Ratio (10-20) Glucose (70-99) mg/dl Calcium (8.5-10.1) mg/dl Total Bilirubin (0.2-1) mg/dl AST (15-37) U/L ALT (12-78) Alkaline Phosphatase (45-117) U/L Troponin I (0-0.045) ng/ml Total Protein (6.4-8.2) gm/dl Albumin (3.4-5.0) gm/dl Globulin (2.5-4.0) gm/dl Albumin/Globulin Ratio (0.9-2) Lipase (73-393) U/L Urine Color Yellow Urine Appearance Clear (Clear) Urine pH 6.5 (4.5-7.5) Ur Specific Pullman 1.011 (1.000-1.030) Urine Protein Negative (Negative) Urine Glucose (UA) Negative (Negative) Urine Ketones Negative (Negative) Urine Blood Negative (Negative) Urine Nitrite Negative (Negative) Urine Bilirubin Negative (Negative) Urine Urobilinogen Positive H (Negative) Ur Leukocyte Esterase Negative (Negative) SARS-CoV-2, RNA, NAAT (NEGATIVE) Administered Medications Famotidine 20 mg/ Syringe 5 mls @ 2.5 mls/min IV Q12H [facility] Stop: 10/22/21 00:00 Last Admin: 09/26/21 00:11 Dose: 2.5 mls/min Documented by: [id number] Admin: 09/25/21 12:30 Dose: 2.5 mls/min Documented by: [id number] Admin: 09/24/21 23:53 Dose: 2.5 mls/min Documented by: [id number] Admin: 09/24/21 12:49 Dose: 2.5 mls/min Documented by: [id number] Admin: 09/24/21 00:52 Dose: 2.5 mls/min Documented by: [id number] Admin: 09/23/21 11:54 Dose: 2.5 mls/min Documented by: [id number] Admin: 09/23/21 00:26 Dose: 2.5 mls/min Documented by: [id number] Admin: 09/22/21 11:08 Dose: 2.5 mls/min Documented by: [id number] Admin: 09/21/21 23:20 Dose: 2.5 mls/min Documented by: [id number] Piperacillin Sod/Tazobactam (Sod 3.375 gm/ Dextrose) 115 mls @ 28.75 mls/hr IV Q8H [facility]; Protocol Stop: 10/02/21 03:59 Last Admin: 09/26/21 04:19 Dose: 28.8 mls/hr Documented by: [id number] Infusion: 09/26/21 00:26 Dose: 0 mls/hr Documented by: [id number] Admin: 09/25/21 20:23 Dose: 28.8 mls/hr Documented by: [id number] Infusion: 09/25/21 18:13 Dose: 0 mls/hr Documented by: [id number] Infusion: 09/25/21 15:10 Dose: 28.8 mls/hr Documented by: [id number] Admin: 09/25/21 13:26 Dose: 30 mls/hr Documented by: [id number] Infusion: 09/25/21 08:57 Dose: 0 mls/hr Documented by: [id number] Admin: 09/25/21 04:23 Dose: 28.8 mls/hr Documented by: [id number] Infusion: 09/25/21 01:20 Dose: 0 mls/hr Documented by: [id number] Admin: 09/24/21 21:14 Dose: 28.8 mls/hr Documented by: [id number] Infusion: 09/24/21 16:51 Dose: 0 mls/hr Documented by: [id number] Admin: 09/24/21 12:49 Dose: 28.8 mls/hr Documented by: [id number] Infusion: 09/24/21 08:54 Dose: 0 mls/hr Documented by: [id number] Admin: 09/24/21 04:45 Dose: 28.8 mls/hr Documented by: [id number] Infusion: 09/24/21 00:51 Dose: 0 mls/hr Documented by: [id number] Admin: 09/23/21 20:43 Dose: 28.8 mls/hr Documented by: [id number] Infusion: 09/23/21 16:21 Dose: 0 mls/hr Documented by: [id number] Admin: 09/23/21 11:54 Dose: 28.8 mls/hr Documented by: [id number] Infusion: 09/23/21 07:45 Dose: 0 mls/hr Documented by: [id number] Admin: 09/23/21 03:40 Dose: 28.8 mls/hr Documented by: [id number] Infusion: 09/23/21 00:25 Dose: 0 mls/hr Documented by: [id number] Admin: 09/22/21 20:21 Dose: 28.8 mls/hr Documented by: [id number] Infusion: 09/22/21 14:59 Dose: 0 mls/hr Documented by: [id number] Admin: 09/22/21 11:08 Dose: 28.8 mls/hr Documented by: [id number] Infusion: 09/22/21 07:37 Dose: 0 mls/hr Documented by: [id number] Admin: 09/22/21 04:35 Dose: 28.8 mls/hr Documented by: [id number] Lactated Ringer's (Lr) 1,000 mls @ 80 mls/hr IV .[id number] AGUS Stop: 10/21/21 22:50 Last Admin: 09/25/21 21:49 Dose: 80 mls/hr Documented by: [id number] Infusion: 09/25/21 21:49 Dose: 80 mls/hr Documented by: [id number] Infusion: 09/25/21 18:13 Dose: 80 mls/hr Documented by: [id number] Admin: 09/25/21 15:37 Dose: 80 mls/hr Documented by: [id number] Infusion: 09/25/21 12:28 Dose: 0 mls/hr Documented by: [id number] Admin: 09/24/21 23:59 Dose: 80 mls/hr Documented by: [id number] Infusion: 09/24/21 23:59 Dose: 80 mls/hr Documented by: [id number] Infusion: 09/24/21 14:59 Dose: 80 mls/hr Documented by: [id number] Infusion: 09/24/21 13:00 Dose: 0 mls/hr Documented by: [id number] Admin: 09/24/21 12:49 Dose: 80 mls/hr Documented by: [id number] Infusion: 09/24/21 12:49 Dose: 80 mls/hr Documented by: [id number] Admin: 09/24/21 00:52 Dose: 80 mls/hr Documented by: [id number] Infusion: 09/24/21 00:52 Dose: 80 mls/hr Documented by: [id number] Infusion: 09/23/21 22:03 Dose: 80 mls/hr Documented by: [id number] Infusion: 09/23/21 20:43 Dose: 0 mls/hr Documented by: [id number] Admin: 09/23/21 11:57 Dose: 80 mls/hr Documented by: [id number] Infusion: 09/23/21 11:57 Dose: 80 mls/hr Documented by: [id number] Admin: 09/23/21 00:25 Dose: 80 mls/hr Documented by: [id number] Infusion: 09/23/21 00:25 Dose: 80 mls/hr Documented by: [id number] Infusion: 09/22/21 16:21 Dose: 80 mls/hr Documented by: [id number] Infusion: 09/22/21 14:59 Dose: 0 mls/hr Documented by: [id number] Admin: 09/22/21 12:25 Dose: 80 mls/hr Documented by: [id number] Infusion: 09/22/21 12:25 Dose: 80 mls/hr Documented by: [id number] Infusion: 09/22/21 00:03 Dose: 80 mls/hr Documented by: [id number] Infusion: 09/21/21 23:23 Dose: 0 mls/hr Documented by: [id number] Admin: 09/21/21 23:21 Dose: 80 mls/hr Documented by: [id number] Discontinued Medications Sodium Chloride (Nss) 500 mls @ 999 mls/hr IV .Q31M STA Stop: 09/21/21 16:36 Last Infusion: 09/21/21 17:05 Dose: 0 mls/hr Documented by: [id number] Admin: 09/21/21 16:32 Dose: 999 mls/hr Documented by: [id number] Sodium Chloride (Nss 1000ml) 1,000 mls @ 125 mls/hr IV .Q8H STA Stop: 09/22/21 00:05 Last Infusion: 09/21/21 23:02 Dose: 0 mls/hr Documented by: [id number] Admin: 09/21/21 17:06 Dose: 125 mls/hr Documented by: [id number] Cefoxitin Sodium (Mefoxin) 2,000 mg in 60 mls @ 100 mls/hr IV NOW STA Stop: 09/21/21 19:28 Last Infusion: 09/21/21 20:32 Dose: 0 mls/hr Documented by: [id number] Admin: 09/21/21 19:49 Dose: 100 mls/hr Documented by: [id number] Piperacillin Sod/Tazobactam Sod (Zosyn) 4.5 gm in 120 mls @ 200 mls/hr IV 2315 AGUS Stop: 09/22/21 02:00 Last Infusion: 09/22/21 00:03 Dose: 0 mls/hr Documented by: [id number] Admin: 09/21/21 23:20 Dose: 200 mls/hr Documented by: [id number] Indomethacin (Indomethacin 50 Mg Supp) 100 mg IA ONCE ONE Stop: 09/25/21 13:34 Last Admin: 09/25/21 16:09 Dose: Not Given Documented by: [id number] Indomethacin (Indomethacin 50 Mg Supp) Confirm Administered Dose 100 mg IA .STK- MED ONE Stop: 09/25/21 13:37 Last Admin: 09/25/21 16:08 Dose: Not Given Documented by: [id number] Imaging Data Radiologist's Impression: Chest X-Ray 09/21/21 16:06 XR chest 1V portable HISTORY: Right upper quadrant abdominal pain. COMPARISON: Chest 03/23/2021. FINDINGS: No pneumothorax. No pleural effusions. There is mild interstitial thickening most process of the lung bases. This is similar to the prior study and is likely chronic. No new focal lung consolidations to suggest pneumonia. No evidence for pulmonary edema. The heart remains top normal in size. IMPRESSION: No significant change compared to the prior study. No acute process. ACT 112: Negative or not required by law. Electronically signed by: Avelino Porras M.D. 09/21/2021 4:42 PM ABDOMINAL ULTRASOUND, RIGHT UPPER QUADRANT HISTORY: Right upper quadrant abdominal pain.. COMPARISON: None. FINDINGS: Pancreas: Obscured by overlying bowel gas. Liver: The liver is echogenic consistent with fatty change. 15 cm in length. Gallbladder: Borderline gallbladder wall thickening at 3 mm. However, the negative sonographic Cavanaugh sign. Small amount of sludge within the gallbladder. No definite gallstones. CBD: 7 mm. This is within normal limits given the patient's age. Right kidney: No hydronephrosis. IMPRESSION: 1. Borderline gallbladder wall thickening with a small amount of gallbladder sludge. However, no gallstones and a negative sonographic Cavanaugh sign. Therefore, acute cholecystitis is considered less likely. 2. Normal caliber common bile duct for the patient's age. 3. Mild hepatic steatosis. ACT 112: Negative or not required by law. Electronically signed by: Avelino Porras M.D. 09/21/2021 6:20 PM Dictated:[id number]/[id number] Transcribed: 09/21/211817 Blood Pressure Blood Pressure Findings: Normal blood pressure Blood Pressure Disposition: did not require urgent referral Discharge Plan Visit Data Chief Complaint: Syncope ED Provider: Blanche Rivero Discharge Problem: Epigastric abdominal pain, Near syncope, Transaminitis Patient Disposition: Admitted As Inpatient Discharge Instructions Interventions: ED Discharge Assessment Last Done: 09/21/21 22:09
--- NOTE | 2021-09-21 18:21 | Ultrasound Report ---
ABDOMINAL ULTRASOUND, RIGHT UPPER QUADRANT HISTORY: Right upper quadrant abdominal pain.. COMPARISON: None. FINDINGS: Pancreas: Obscured by overlying bowel gas. Liver: The liver is echogenic consistent with fatty change. 15 cm in length. Gallbladder: Borderline gallbladder wall thickening at 3 mm. However, the negative sonographic Cavanaugh sign. Small amount of sludge within the gallbladder. No definite gallstones. CBD: 7 mm. This is within normal limits given the patient's age. Right kidney: No hydronephrosis. IMPRESSION: 1. Borderline gallbladder wall thickening with a small amount of gallbladder sludge. However, no gall stones and a negative sonographic Cavanaugh sign. Therefore, acute cholecystitis is considered less like ly. 2. Normal caliber common bile duct for the patient's age. 3. Mild hepatic steatosis. ACT 112: Negative or not required by law. Electronically signed by: Avelino Porras M.D. 09/21/2021 6:20 PM
[2021-09-21] MEDS ORDERED: cefOXitin 2,000 MG/60 ML BAG IV STA (18:53)
--- NOTE | 2021-09-21 21:22 | History & Physical Report ---
Date of Service September 21, 2021 Assessment & Plan (1) Abdominal pain: Plan: Abdominal pain/abnormal gallbladder ultrasound/abnormal LFTs- Possible acute cholecystitis based on the above NPO Zosyn 3.375 g IV every 8 hours Famotidine 20 mg IV every 12 hours Toradol 15 mg IV every 6 hours as needed pain or fever Repeat laboratories in a.m. Lactated Ringer's at 80 mils per hour General surgery Dr. Bowles aware (2) Abnormal gallbladder ultrasound: Plan: See above (3) Abnormal LFTs: Plan: See above (4) GERD without esophagitis: Plan: Hold omeprazole while n.p.o. Placed on famotidine 20 mg IV every 12 hours (5) Hypertension: Plan: Hold lisinopril History of Present Illness Chief Complaint: The patient presents to the emergency department with complaint of right upper quadrant pain that began after eating have a hoagie this afternoon. He had a similar episode of pain about 2 weeks ago, and had a temperature for brief interval afterwards, that his stayed home from work for to help take care of him. Primary Care Provider: DENZEL Cooper The patient is a 81-year-old male with a past medical history including gait disturbance, insomnia, urinary urgency, prostatitis, BPH with LUTS, impaired fasting glucose, hypertension, allergic rhinitis, anxiety with depression, asthma, GERD [id number] bowel syndrome. He presents with symptoms as noted above. Allergies Allergy/AdvReac Type Severity Reaction Status Date / Time No Known Allergies Allergy Verified 09/21/21 17:20 Home Medications Medication Instructions Recorded Confirmed Type lisinopril 5 mg tablet 5 mg PO QAM 09/21/21 09/21/21 History omeprazole 20 mg capsule,delayed 20 mg PO DAILY PRN 09/21/21 09/21/21 History release Past Med/Surg History Medical History (Updated 09/22/21 @ 01:59 by Nayan Garcia MD) Elevated systolic blood pressure reading without diagnosis of hypertension Hypokalemia Prostatitis Solitary pulmonary nodule Urinary hesitancy Surgical History H/O knee surgery H/O repair of rotator cuff Family History Family/Other No problems noted. Other No pertinent family history Denies family history of Ovarian cancer Prostate cancer Diabetes Myocardial infarction Breast cancer Colorectal cancer Hypertension Social History Smoking Status: Never smoker Tobacco Type: Cigarettes Second Hand Exposure: No; Hx Alcohol Use: Yes Hx Substance Use: No Preferred Language: Macedonian Communication Ability: Effective Pet Care Attendant Required: No Beliefs That Will Affect Care: None marital status: / Current Living Situation: Alone Current Living Situation Comment: pt states his daughter jessica lives nearby and is able to help care for him current occupational status: retired How many Children do You have: 2 Other Information That Helps Us Care for You: No Feels Safe at Home: Yes Safety Concerns: Feels Safe At This Time Childhood Exposure to Second-Hand Smoke: Yes caffeine: Yes (soda) Dental Care, Regularly: No Physical Activity Frequency: Does not Exercise Seatbelt Use: never Sunscreen Use: No Assistive Devices: None Review of Systems Review of Systems: The patient denies chest pain, palpitations, shortness of breath, dyspnea on exertion, cough, lower extremity swelling, sore throat, fevers, chills, sweats, vomiting, diarrhea , constipation, pelvic pain, blood in urine or stool, dysuria, urinary frequency or urgency, lightheadedness, dizziness, headache, memory loss, loss of consciousness, rash, abnormal bruising or bleeding, focal or generalized weakness, numbness or tingling in arms or legs, generalized arthralgias or myalgias, back or neck pain, or night sweats. The review of systems is otherwise negative other than for that already noted above, and at least 10 systems have been reviewed. Physical Exam Physical Exam: The patient is awake, alert and oriented 3, well developed and well nourished, normocephalic and atraumatic, lying in bed and in no acute distress. HEENT--PERRL, EOMI, mucous membranes and oropharynx mildly dry. Neck--supple. No JVD. No bruits. Thyroid normal, trachea midline, no adeno candido. Heart--normal S1 and S2. No murmurs, rubs or gallops. Lungs--clear bilaterally, no respiratory distress, no accessory muscle use. Abdomen--normal bowel sounds and soft. Nontender. Nondistended, obese Extremities--no cyanosis or clubbing. No edema. Dermatologic--normal skin turgor, normal color, no abnormal lymph nodes, no rash. Neurologic--cranial nerves II through XII grossly intact. Rheumatologic--limited exam Psychiatric--normal affect. Results & Data Results & Data ([facility]) Vital Signs (Past 12 Hours) Vital Signs Temp Pulse Pulse Resp BP BP Pulse Ox 09/21/21 18:24 69 16 119/75 94 09/21/21 17:08 69 16 124/84 95 09/21/21 16:31 66 20 134/94 94 09/21/21 15:50 36.3 C L 83 16 145/94 H 95 Laboratory Results Laboratory Results WBC 13.51 K/uL (4.8-10.8) H 09/21/21 16:40 RBC 4.55 M/uL (4.7-6.1) L 09/21/21 16:40 Hgb 14.2 g/dL (14.0-18.0) 09/21/21 16:40 Hct 44.6 % (42-52) 09/21/21 16:40 MCV 98.0 fL (80-100) 09/21/21 16:40 MCH 31.2 pg (25-34) 09/21/21 16:40 MCHC 31.8 g/dL (32-36) L 09/21/21 16:40 RDW Std Deviation 54.1 fL (36.4-46.3) H 09/21/21 16:40 RDW Coeff of Arturo 15.0 % (11.5-14.5) H 09/21/21 16:40 Plt Count 320 K/uL (130-400) 09/21/21 16:40 MPV 9.5 fL (7.4-10.4) 09/21/21 16:40 Immature Gran % (Auto) 0.4 % 09/21/21 16:40 Neut % (Auto) 83.4 % 09/21/21 16:40 Lymph % (Auto) 6.5 % 09/21/21 16:40 [place] % (Auto) 8.9 % 09/21/21 16:40 Eos % (Auto) 0.6 % 09/21/21 16:40 Baso % (Auto) 0.2 % 09/21/21 16:40 Neut # (Auto) 11.26 K/uL (1.4-6.5) H 09/21/21 16:40 Lymph # (Auto) 0.88 K/uL (1.2-3.4) L 09/21/21 16:40 [place] # (Auto) 1.20 K/uL (0.11-0.59) H 09/21/21 16:40 Eos # (Auto) 0.08 K/uL (0-0.5) 09/21/21 16:40 Baso # (Auto) 0.03 K/uL (0-0.2) 09/21/21 16:40 Immature Gran # (Auto) 0.06 K/uL (0.00-0.02) H 09/21/21 16:40 Sodium 144 mmol/L (136-145) 09/21/21 16:40 Potassium 3.7 mmol/L (3.5-5.1) 09/21/21 16:40 Chloride 110 mmol/L (98-107) H 09/21/21 16:40 Carbon Dioxide 30 mmol/L (21-32) 09/21/21 16:40 Anion Gap 4.0 (3-11) 09/21/21 16:40 BUN 21 mg/dl (7-18) H 09/21/21 16:40 Creatinine 1.22 mg/dl (0.6-1.4) 09/21/21 16:40 Est Cr Clr Drug Dosing 53.6 ml/min 09/21/21 16:40 Est GFR ( Amer) 64.0 ml/min 09/21/21 16:40 Est GFR (Non-Af Amer) 55.3 ml/min 09/21/21 16:40 BUN/Creatinine Ratio 17.3 (10-20) 09/21/21 16:40 Glucose 116 mg/dl (70-99) H 09/21/21 16:40 Calcium 9.0 mg/dl (8.5-10.1) 09/21/21 16:40 Total Bilirubin 0.9 mg/dl (0.2-1) 09/21/21 16:40 AST 175 U/L (15-37) H 09/21/21 16:40 ALT 127 (12-78) H 09/21/21 16:40 Alkaline Phosphatase 175 U/L (45-117) H D 09/21/21 16:40 Troponin I < 0.015 ng/ml (0-0.045) 09/21/21 16:40 Total Protein 7.0 gm/dl (6.4-8.2) 09/21/21 16:40 Albumin 3.2 gm/dl (3.4-5.0) L 09/21/21 16:40 Globulin 3.8 gm/dl (2.5-4.0) 09/21/21 16:40 Albumin/Globulin Ratio 0.8 (0.9-2) L 09/21/21 16:40 Lipase 115 U/L (73-393) 09/21/21 16:40 Urine Color Yellow 09/21/21 20:20 Urine Appearance Clear (Clear) 09/21/21 20:20 Urine pH 6.5 (4.5-7.5) 09/21/21 20:20 Ur Specific [place] 1.011 (1.000-1.030) 09/21/21 20:20 Urine Protein Negative (Negative) 09/21/21 20:20 Urine Glucose (UA) Negative (Negative) 09/21/21 20:20 Urine Ketones Negative (Negative) 09/21/21 20:20 Urine Blood Negative (Negative) 09/21/21 20:20 Urine Nitrite Negative (Negative) 09/21/21 20:20 Urine Bilirubin Negative (Negative) 09/21/21 20:20 Urine Urobilinogen Positive (Negative) H 09/21/21 20:20 Ur Leukocyte Esterase Negative (Negative) 09/21/21 20:20 SARS-CoV-2, RNA, NAAT NEGATIVE (NEGATIVE) 09/21/21 19:45 Impressions Chest X-Ray 09/21/21 16:06 XR chest 1V portable HISTORY: Right upper quadrant abdominal pain. COMPARISON: Chest 03/23/2021. FINDINGS: No pneumothorax. No pleural effusions. There is mild interstitial thickening most process of the lung bases. This is similar to the prior study and is likely chronic. No new focal lung consolidations to suggest pneumonia. No evidence for pulmonary edema. The heart remains top normal in size. IMPRESSION: No significant change compared to the prior study. No acute process. ACT 112: Negative or not required by law. Electronically signed by: Avelino Porras M.D. 09/21/2021 4:42 PM Gallbladder Ultrasound 09/21/21 16:06 ABDOMINAL ULTRASOUND, RIGHT UPPER QUADRANT HISTORY: Right upper quadrant abdominal pain.. COMPARISON: None. FINDINGS: Pancreas: Obscured by overlying bowel gas. Liver: The liver is echogenic consistent with fatty change. 15 cm in length. Gallbladder: Borderline gallbladder wall thickening at 3 mm. However, the negative sonographic Cavanaugh sign. Small amount of sludge within the gallbladder. No definite gallstones. CBD: 7 mm. This is within normal limits given the patient's age. Right kidney: No hydronephrosis. IMPRESSION: 1. Borderline gallbladder wall thickening with a small amount of gallbladder slu dge. However, no gallstones and a negative sonographic Cavanaugh sign. Therefore, acute cholecystitis is considered less likely. 2. Normal caliber common bile duct for the patient's age. 3. Mild hepatic steatosis. ACT 112: Negative or not required by law. Electronically signed by: Avelino Porras M.D. 09/21/2021 6:20 PM Code Status & VTE Plan Code Status full code VTE Prophylaxis Plan VTE Prophylaxis will be ordered: Yes PG Care Time/CCT Total # of Minutes Spent Total Time Spent with Patient: Total time spent is greater than 50% in coordination of care (as documented) at patient's floor/unit and/or counseling patient: Coding Level of Care Code 48595 Initial Inpt Care Lvl 2 Diagnoses GERD without esophagitis K21.9 Hypertension I10 Abnormal LFTs R79.89 Abnormal gallbladder ultrasound R93.2 Abdominal pain R10.9
[2021-09-21 22:24] LABS: Appearance Urine Clear (Clear); Bilirubin Urine Negative (Negative); Blood Urine Negative (Negative); Color Urine Yellow; Glucose Urine UA Negative (Negative); Ketones Urine Negative (Negative); Leukocyte Esterase Urine Negative (Negative); Nitrite Urine Negative (Negative); Protein Urine Negative (Negative); Specific Gravity Urine 1.011 (1.000-1.030); Urobilinogen Urine Positive (Negative); pH Urine 6.5 (4.5-7.5)
[2021-09-21] MEDS ORDERED: KETOROLAC TROMETHAMINE 15 MG/ML VIAL IV PRN (22:51)
[2021-09-21] MEDS ORDERED: ONDANSETRON INJ 2 MG/ML 2 ML VIAL IV PRN (22:51)
[2021-09-21] MEDS ORDERED: PIPERACILL/TAZOBAC CONSULT ACTIVE PRN (22:51)
[2021-09-21] MEDS ORDERED: PIPERACILLIN/TAZOBACTAM 4.5 GM/120 ML BAG IV SCH (23:15)
[2021-09-21] MEDS: FAMOTIDINE 20 MG in SYRINGE 3 ML IV SCH (23:20)
[2021-09-21] MEDS: LACTATED RINGER'S 1,000 ML IV SCH (23:21)
[2021-09-22] MEDS: PIPERACILLIN/TAZOBACTAM 3.375 GM in DEXTROSE 5% 100 ML IV SCH ×3 (04:35→20:21)
--- NOTE | 2021-09-22 08:02 | Hospitalist Progress Note ---
Date of Service September 22, 2021 Assessment & Plan (1) Abdominal pain: Plan: 81 year old male PMHx elevate systolic BP without dx of HTN, hypokalemia, prostatitis, solitary pulmonary nodules, urniary hesitancy coming in for right upper abdominal pain for one day Abdominal pain: - WBC 13.51, AST 175, ALT 127, Alk Phos 175, Trop negative, lipase negative, UA +urobilinogen. - Repeat CMP this AM: AST 262, ALT 315, Alk Phos 183. - CXR negative, US Gallbladder: borderline wall thickening, small amount sludge, no gallstones, - murphys - Cholesystitis vs choledocholithiasis vs hepatic steatosis. - Dr. Bowles in general surgery made aware last night and consulted. - Repeat AST/ALT/Alk phos bumped indicating gallbladder sludge. - Recommended GI eval for clearing out sludge via MRCP vs EUS before reassessing for possible cholecystectomy. -Keep NPO with supportive care until GI eval for potential procedure. - GI consulted. - Given 2g cefoxetime in ED, switched to Pip/tazo 3.375 Q8h. - Cont to monitor Abnormal LFTs: - US Gallbladder with signs of hepatic steatosis. - AST/ALT as above. - may be 2/2 hepatic steatosis or potential cholecystitis/docholethiasis. - Continue to trend. GERD: - Cont. home omeprazole, famotidine Q12. HTN: - BP 154/79, repeat 111/60 - Likely 2/2 stress/pain - Lisinopril on hold - Monitor vitals. DVT Prophylaxis: SCDs Code status: Full code. Dispo: Med/surg (2) Abnormal gallbladder ultrasound: Plan: 22 (3) Abnormal LFTs: (4) GERD without esophagitis: (5) Hypertension: Plan: Patient seen and examined, chart reviewed, case discussed with Dr. Dejesus and I agree with the assessment and plan as above except as otherwise noted General: A&Ox3. NAD. Cooperative. HEENT: Atraumatic, normocephalic. Pulm: CTAB A&P. -wheezes, -rales, -rhonchi. Symmetrical chest rise. No increase work of breathing. No respiratory distress. Cardiac: RRR, -mrg. Radial pulses intact and symmetrical. Abdominal: Nontender, nondistended, soft. BS present. All labs and images reviewed Abdominal pain 2/2 Gallbladder dysfunction: Cross cover anything with leukocytosis to 13.5, AST/ALT 175/27, elevated alk phos right upper quadrant abdominal pain following meals suggestive of cholecystitis versus gallbladder dysfunction. Lipase is not elevated. Patient is continued on Zosyn. Transaminases uptrending. Lipase is not elevated Gallbladder ultrasound with borderline 3 mm thickening and sludge, no stones appreciated. General surgery consulted, recommend MRCP versus EUS prior to potential cholecystectomy; GI consulted. Hypertension: Lisinopril held on admission. Blood pressure low to normal this morning. Admission and Anticipated Discharge Date Admission Date: September 21, 2021 Subjective Patient seen at the bedside this morning. Patient stated he started feeling the sharp RUQ pain after eating his lunch. Has since resolved and feeling good today. Denies fevers, chills, nausea, pain. Discussed plan with patient and daughter. Told them we will see what GI thinks, if need to clear sludge, and if they do the possibility of surgery deciding whether they want to take the gallbladder out. Physical Exam Constitutional: WD/WN, vitals as above Eyes: PERRL, conjunctivae normal, anicteric sclerae Respiratory: normal respiratory effort, lungs clear to auscultation Cardiovascular: RRR, no murmur, no edema Gastrointestinal (Abdomen): normal bowel sounds, soft, nontender, no hepatosplenomegaly Negative Cavanaugh's sign. Results & Data Results & Data ([facility]) Vital Signs (Past 12 Hours) Vital Signs Temp Pulse Pulse Pulse Resp BP BP 09/22/21 07:30 36.8 C 61 16 100/59 L 09/21/21 23:28 36.6 C 85 16 111/60 09/21/21 22:30 36.8 C 90 18 154/79 H 09/21/21 22:09 84 18 138/79 09/21/21 22:00 84 18 138/79 Pulse Ox 09/22/21 07:30 94 09/21/21 23:28 94 09/21/21 22:30 96 09/21/21 22:09 93 09/21/21 22:00 93 Resident Activity Tracking Resident Involvement: Resident Care Provided Care Provided: [facility]
[2021-09-22 09:31] LABS: Basophils # (auto) 0.02 K/uL (0-0.2); Basophils % (auto) 0.2 %; Eosinophils # (auto) 0.25 K/uL (0-0.5); Eosinophils % (auto) 2.4 %; Hematocrit (blood only) 41.3 % (42-52); Hemoglobin 13.5 g/dL (14.0-18.0); Immature Granulocytes # (auto) 0.05 K/uL (0.00-0.02); Immature Granulocytes % (auto) 0.5 %; Lymphocytes # (auto) 1.12 K/uL (1.2-3.4); Lymphocytes % (auto) 10.8 %; Mean Corpuscular Hemoglobin 31.4 pg (25-34); Mean Corpuscular Hgb Conc 32.7 g/dL (32-36); Mean Platelet Volume 9.6 fL (7.4-10.4); Monocytes # (auto) 1.19 K/uL (0.11-0.59); Monocytes % (auto) 11.4 %; Neutrophils # (auto) 7.77 K/uL (1.4-6.5); Neutrophils % (auto) 74.7 %; Platelet Count 308 K/uL (130-400); RDW Coefficient of Variation 15.1 % (11.5-14.5); RDW Standard Deviation 53.3 fL (36.4-46.3)
[2021-09-22 09:48] LABS: Albumin Level 2.8 gm/dl (3.4-5.0); BUN Creatinine Ratio 13.8 (10-20); Calcium 8.4 mg/dl (8.5-10.1); Creatinine Clr Calc Pharmacy 48.6 ml/min; Est GFR (African American) 59.3 ml/min; Est GFR (Non-African American) 51.2 ml/min; Potassium 3.9 mmol/L (3.5-5.1)
[2021-09-22 09:51] LABS: Albumin Globulin Ratio 0.8 (0.9-2); Globulin 3.5 gm/dl (2.5-4.0); Total Protein 6.3 gm/dl (6.4-8.2)
[2021-09-22 10:36] LABS: Bilirubin,Total 4.3 mg/dl (0.2-1)
[2021-09-22] MEDS: FAMOTIDINE 20 MG in SYRINGE 3 ML IV SCH (11:08)
--- NOTE | 2021-09-22 11:08 | Surgery Consultation ---
Date of Consultation September 22, 2021 Assessment & Plan (1) Abnormal gallbladder ultrasound: 81 yr old man with gallbladder sludge and symptoms suggestive of gallbladder disease. Clinically, does not have acute cholecystitis on exam (no tenderness, no persistent pain). I wrote to recheck bloodwork and his liver tests have increased including bilirubin up to 4.3. This is suggestive of passage of sludge within the common duct and I would recommend GI evaluation prior to cholecystectomy. Consider MRCP or EUS to clear the common duct. Leukocytosis has resolved. Would recommend continuing NPO, IV antibiotics until GI eval. Possible cholecystectomy this hospital admission. (2) Abnormal LFTs: Increasing suggestive of passage of sludge. GI evaluation. Follow liver tests. History of Present Illness Reason for Consultation: abdominal pain, elevated liver function tests Requesting Physician: Nayan Garcia MD Attending Physician: Neo Crouch MD History of Present Illness 81 yr old man admitted with abdominal pain, sharp, stabbing, located in right mid abdomen. Very intense, 10/10, no relieving factors, no associated vomiting but he did become diaphoretic/nauseated and passed out in the doctor's office. Dr. Jordan's note reviewed. Pain started after eating a hoagie for lunch. Currently, pain has resolved and he is asking to go home. In ER, AST/ ALT mildly elevated, mild elevation of WBC ct, total bili normal. US showed no gallstones, there was sludge and mild thickening, CBD 7 mm. Had another episode previously about two weeks ago, that also resolved spontaneously. Allergies Allergy/AdvReac Type Severity Reaction Status Date / Time No Known Allergies Allergy Verified 09/21/21 17:20 Home Medications Medication Instructions Recorded Confirmed Type lisinopril 5 mg tablet 5 mg PO QAM 09/21/21 09/21/21 History omeprazole 20 mg capsule,delayed 20 mg PO DAILY PRN 09/21/21 09/21/21 History release Patient History Medical History Elevated systolic blood pressure reading without diagnosis of hypertension Hypokalemia Prostatitis Solitary pulmonary nodule Urinary hesitancy Surgical History H/O knee surgery H/O repair of rotator cuff Family History Family/Other No problems noted. Other No pertinent family history Denies family history of Ovarian cancer Prostate cancer Diabetes Myocardial infarction Breast cancer Colorectal cancer Hypertension Social History Smoking Status: Never smoker Tobacco Type: Cigarettes Second Hand Exposure: No; Hx Alcohol Use: Yes Hx Substance Use: No Preferred Language: Thai Communication Ability: Effective Seam Finisher Required: No Beliefs That Will Affect Care: None marital status: Current Living Situation: Alone Current Living Situation Comment: pt states his daughter jessica lives nearby and is able to help care for him current occupational status: retired How many Children do You have: 1 Other Information That Helps Us Care for You: No Feels Safe at Home: Yes Safety Concerns: Feels Safe At This Time Childhood Exposure to Second-Hand Smoke: Yes caffeine: Yes (soda) Dental Care, Regularly: No Physical Activity Frequency: Does not Exercise Seatbelt Use: never Sunscreen Use: No Assistive Devices: Walker Review of Systems Review of Systems: All systems reviewed & are unremarkable except as noted in HPI & below Gastrointestinal: constipation, has a bowel movement every 2-3 days, last was a few days ago Physical Exam Eyes: PERRL, conjunctivae normal, anicteric sclerae Neck: trachea midline, no thyromegaly Respiratory: normal respiratory effort, lungs clear to auscultation Cardiovascular: RRR, no murmur, no edema Gastrointestinal (Abdomen): normal bowel sounds, soft, nontender, no hepatosplenomegaly Musculoskeletal: no cyanosis or clubbing, extremities motor strength 5/5 Neurologic: no focal motor deficits Psychiatric: A+Ox3, euthymic affect Results & Data ([place]) Vital Signs (Past 12 Hours) Vital Signs Temp Pulse Pulse Resp BP Pulse Ox 09/22/21 07:30 36.8 C 61 16 100/59 L 94 09/21/21 23:28 36.6 C 85 16 111/60 94 Laboratory Results Abnormal lab results 09/21/21 09/21/21 09/21/21 Range/Units 16:40 16:40 20:20 WBC 13.51 H (4.8-10.8) K/uL RBC 4.55 L (4.7-6.1) M/uL Hgb (14.0-18.0) g/dL Hct (42-52) % MCHC 31.8 L (32-36) g/dL RDW Std Deviation 54.1 H (36.4-46.3) fL RDW Coeff of Arturo 15.0 H (11.5-14.5) % Neut # (Auto) 11.26 H (1.4-6.5) K/uL Lymph # (Auto) 0.88 L (1.2-3.4) K/uL Emery # (Auto) 1.20 H (0.11-0.59) K/uL Immature Gran # (Auto) 0.06 H (0.00-0.02) K/uL Chloride 110 H (98-107) mmol/L BUN 21 H (7-18) mg/dl Glucose 116 H (70-99) mg/dl Calcium (8.5-10.1) mg/dl Total Bilirubin (0.2-1) mg/dl AST 175 H (15-37) U/L ALT 127 H (12-78) Alkaline Phosphatase 175 H D (45-117) U/L Total Protein (6.4-8.2) gm/dl Albumin 3.2 L (3.4-5.0) gm/dl Albumin/Globulin Ratio 0.8 L (0.9-2) Urine Urobilinogen Positive H (Negative) 09/22/21 09/22/21 Range/Units 08:56 08:56 WBC (4.8-10.8) K/uL RBC 4.30 L (4.7-6.1) M/uL Hgb 13.5 L (14.0-18.0) g/dL Hct 41.3 L (42-52) % MCHC (32-36) g/dL RDW Std Deviation 53.3 H (36.4-46.3) fL RDW Coeff of Arturo 15.1 H (11.5-14.5) % Neut # (Auto) 7.77 H (1.4-6.5) K/uL Lymph # (Auto) 1.12 L (1.2-3.4) K/uL [place] # (Auto) 1.19 H (0.11-0.59) K/uL Immature Gran # (Auto) 0.05 H (0.00-0.02) K/uL Chloride 114 H (98-107) mmol/L BUN (7-18) mg/dl Glucose 103 H (70-99) mg/dl Calcium 8.4 L (8.5-10.1) mg/dl Total Bilirubin 4.3 H D (0.2-1) mg/dl AST 262 H (15-37) U/L ALT 315 H (12-78) Alkaline Phosphatase 183 H (45-117) U/L Total Protein 6.3 L (6.4-8.2) gm/dl Albumin 2.8 L (3.4-5.0) gm/dl Albumin/Globulin Ratio 0.8 L (0.9-2) Urine Urobilinogen (Negative) Diagnostic Findings US findings: ABDOMINAL ULTRASOUND, RIGHT UPPER QUADRANT HISTORY: Right upper quadrant abdominal pain.. COMPARISON: None. FINDINGS: Pancreas: Obscured by overlying bowel gas. Liver: The liver is echogenic consistent with fatty change. 15 cm in length. Gallbladder: Borderline gallbladder wall thickening at 3 mm. However, the negative sonographic Cavanaugh sign. Small amount of sludge within the gallbladder. No definite gallstones. CBD: 7 mm. This is within normal limits given the patient's age. Right kidney: No hydronephrosis. IMPRESSION: 1. Borderline gallbladder wall thickening with a small amount of gallbladder sludge. However, no gallstones and a negative sonographic Cavanaugh sign. Therefore, acute cholecystitis is considered less likely. 2. Normal caliber common bile duct for the patient's age. 3. Mild hepatic steatosis. ACT 112: Negative or not required by law.
[2021-09-22] MEDS: LACTATED RINGER'S 1,000 ML IV SCH (12:25)
--- NOTE | 2021-09-22 12:34 | Billing Data ---
Date of Service September 22, 2021 Coding Level of Care Code 17934 Subseq Hosp Care Lvl 2
--- NOTE | 2021-09-22 13:42 | Electrocardiogram Report ---
Test Reason : Blood Pressure : / mmHG Vent. Rate : 072 BPM Atrial Rate : 072 BPM P-R Int : 174 ms QRS Dur : 122 ms QT Int : 420 ms P-R-T Axes : 090 030 076 degrees QTc Int : 459 ms Sinus rhythm with Premature atrial complexes Non-specific intra-ventricular conduction delay Nonspecific ST abnormality Abnormal ECG When compared with ECG of 23-SEP-2017 23:03, Premature atrial complexes are now Present Confirmed by Bulmaro Chicas ([id number]) on 09/22/2021 1:42:30 PM Referred By: Johana Jordan Confirmed By:Bulmaro Chicas
--- NOTE | 2021-09-22 15:27 | XRay Report ---
XR orbits for MRI CLINICAL HISTORY: MRI CLEARANCE TECHNIQUE: AP and lateral views of the orbits were submitted for interpretation. Comparison: None available at the time of this dictation. FINDINGS/IMPRESSION: There are no radiopaque metallic foreign bodies apart from dental amalgam. The osseous structures are unremarkable. ACT 112: Negative or not required by law. Electronically signed by: Cristi Jacques M.D. 09/22/2021 3:26 PM
--- NOTE | 2021-09-22 19:35 | Magnetic Resonance Report ---
MR MRCP CLINICAL HISTORY: RUQ abdominal pain, Elevated LFT's TECHNIQUE: Multiplanar multisequence MR images of the abdomen were obtained, as per MRCP protocol. [facility] protocol consists of 3 plane localizer images, axial T1, axial T2, axial T2 fat saturated, coronal T2, MRCP single and MRCP volume sequences of the abdomen were obtained, without intravenous contrast . 1 mg of intramuscular glucagon was administered.. COMPARISON: Comparison is made to gallbladder ultrasound 09/21/2021 FINDINGS: Lower chest: No acute abnormality Liver: Unremarkable. No focal lesions are seen. Gallbladder and biliary tree: No calcified gallstones. Normal caliber wall. No intra- or extrahepatic biliary ductal dilation. Pancreas: Unremarkable, no focal lesions. Spleen: Unremarkable. Adrenals: Unremarkable. Kidneys and ureters: There is a left renal cyst. Bowel: Unremarkable. Lymph nodes Retroperitoneal: Unremarkable. Mesenteric: Unremarkable. Peritoneum: Normal Vessels: Unremarkable. Abdominal wall: Unremarkable. Bones: Degenerative changes in the visualized spine. IMPRESSION: No evidence of acute abnormality. The common bile duct is normal in caliber and smooth in contour. ACT 112: Negative or not required by law. Electronically signed by: Cristi Jacques M.D. 09/22/2021 7:34 PM
--- NOTE | 2021-09-23 00:21 | Consultation Report ---
GASTROENTEROLOGY CONSULT DATE OF SERVICE: 09/22/2021 RACE: . ATTENDING PHYSICIAN: Dr. Alvarado. CONSULTING PHYSICIAN: Richard Pryor DO. REASON FOR CONSULTATION: Questionable cholecystitis. MRCP versus EUS. HISTORY OF PRESENT ILLNESS: Joshua Claros is an 81-year-old male who presented to the [facility] early this morning with complaints of right upper quadrant abdominal pain . He states that he had been eating and noticed pain following the meal. He had admitted to having pain like this intermittently over the past few weeks. Prior to his arrival at the ER, he was seen by his PCP and did have an episode of "passing out" while there and was subsequently sent, and upon arr ival to the ER, he was noted to have laboratory studies, which showed a white blood cell count of 13. 51 with an AST of 175, ALT of 127, alkaline phosphatase of 175 and a total bilirubin of 0.9. He had repeat liver panel today and was noted to have an elevated bilirubin of 4.3 with an AST of 262, ALT o f 315, and alkaline phosphatase of 183. He subsequently underwent a right upper quadrant ultrasound and was noted to have borderline gallbladder wall thickening with a small amount of gallbladder sludg e; however, there were no gallstones and there was a negative sonographic Cavanaugh sign. Acute cholecy stitis was considered less likely. The common bile duct was normal in size for the patient's age. T here was mild hepatic steatosis. The patient was seen and examined by Dr. Sera Bowles of [facility] who felt that the patient's symptoms were most likely secondary to gallbladder sludge with passa ge within the common bile duct and she recommended a GI evaluation. The patient was subsequently admi tted, started on IV fluids and IV antibiotics. At the time that I saw the patient, he was resting co mfortably in bed. He still was complaining of some mild right upper quadrant abdominal pain, which h e described as 3/10 in intensity, nonradiating, without associated symptoms of fevers, chills, nausea or vomiting. He states that his pain has improved since his admission. He denies any hematemesis, melena, hematochezia and states that he does not take any medications at home for GERD or heartburn. He denies any other complaints at this time. PAST MEDICAL HISTORY: Significant for urinary urgency, prostatitis, BPH, hypertension, allergic rhin itis, anxiety, asthma, depression, IBS, GERD. PAST SURGICAL HISTORY: Includes knee surgery and rotator cuff repair. ALLERGIES: None. CURRENT MEDICATIONS: At present include Zofran 4 mg IV q.6 p.r.n. nausea, Pepcid 20 mg IV q.12 hours , Zosyn 3.375 grams IV q.8 hours. SOCIAL HISTORY: He is . He denies any tobacco, alcohol, or illicit drug abuse. FAMILY HISTORY: Negative for GI malignancy or inflammatory bowel disease. REVIEW OF SYSTEMS: Negative other than pertinent positives listed in the HPI. PHYSICAL EXAMINATION: VITAL SIGNS: Temperature 36.8, pulse 61, respirations 16, blood pressure 100/59, pulse ox 94% on flip m air. GENERAL: He is awake and cooperative, in no acute distress. He is obese. HEAD: Normocephalic, atraumatic. EYES: Pupils equal, round. Extraocular muscles are intact. ENT: External evaluation of ears and nose are normal. Oropharynx is clear. NECK: Soft, supple. CHEST: Clear to auscultation bilaterally. CARDIOVASCULAR: Regular rate and rhythm. ABDOMEN: Soft, tender in the right upper quadrant, nondistended, positive bowel sounds. There is no appreciable hepatosplenomegaly. EXTREMITIES: No clubbing, cyanosis or edema. SKIN: Soft, pink. Good turgor. RADIOGRAPHIC STUDIES AND LABORATORY STUDIES: Reviewed in the HPI. IMPRESSION: An 81-year-old male with right upper quadrant abdominal pain and elevated live r panel in an obstructive pattern. PLAN: I would recommend that the patient undergo an MRCP now. I would recommend that he be continue d on IV antibiotics as per the primary team and general surgery. I agree with Dr. Bowles that the pa peyman should have further imaging to rule out choledocholithiasis secondary to rising bilirubin level . If in fact the patient were to have abnormal MRCP, the patient would need ERCP and I will discuss t his with a auto overhauler who performs this and arrange this accordingly. I will follow the gray ent's clinical course and make further recommendations. Once again, thanks for allowing me to participate in the care of this patient. If you have any furth er questions, please do not hesitate in contacting me. Job ID: [id number]
[2021-09-23] MEDS: LACTATED RINGER'S 1,000 ML IV SCH ×2 (00:25→11:57)
[2021-09-23] MEDS: FAMOTIDINE 20 MG in SYRINGE 3 ML IV SCH ×2 (00:26→11:54)
[2021-09-23] MEDS: PIPERACILLIN/TAZOBACTAM 3.375 GM in DEXTROSE 5% 100 ML IV SCH ×3 (03:40→20:43)
--- NOTE | 2021-09-23 07:16 | Hospitalist Progress Note ---
Date of Service September 23, 2021 Assessment & Plan (1) Abdominal pain: Plan: 81 year old male PMHx elevate systolic BP without dx of HTN, hypokalemia, prostatitis, solitary pulmonary nodules, urniary hesitancy coming in for right upper abdominal pain for one day Abdominal pain: - WBC 13.51, AST 175, ALT 127, Alk Phos 175, Trop negative, lipase negative, UA +urobilinogen. - Repeat CMP yesterday AM: AST 262, ALT 315, Alk Phos 183. - CXR negative, US Gallbladder: borderline wall thickening, small amount sludge, no gallstones, - murphys - Cholesystitis vs choledocholithiasis vs hepatic steatosis. - Dr. Bowles in general surgery made aware last night and consulted. - Repeat AST/ALT/Alk phos bumped indicating gallbladder sludge. - Recommended GI eval for clearing out sludge via MRCP vs EUS before reassessing for possible cholecystectomy. - Keep NPO with supportive care until GI eval for potential procedure. - GI consulted. -MRCP ordered, if positive consider ERCP. -Waiting to schedule EUS for tomorrow, if possible. - Given 2g cefoxetime in ED, switched to Pip/tazo 3.375 Q8h. - Cont to monitor Abnormal LFTs: - US Gallbladder with signs of hepatic steatosis. - AST/ALT as above. - may be 2/2 hepatic steatosis or potential cholecystitis/docholethiasis. - Continue to trend. GERD: - Cont. home omeprazole, famotidine Q12. HTN: - BP 154/79, repeat 111/60 - Likely 2/2 stress/pain - Lisinopril on hold - Monitor vitals. DVT Prophylaxis: SCDs Code status: Full code. Dispo: Med/surg (2) Abnormal gallbladder ultrasound: Plan: 22 (3) Abnormal LFTs: (4) GERD without esophagitis: (5) Hypertension: Admission and Anticipated Discharge Date Admission Date: September 21, 2021 Supervising Physician Co-Signing Physician Notes Patient seen and examined, chart reviewed, case discussed with Dr. Dejesus and I agree with the assessment and plan as above except as otherwise noted General: A&Ox3. NAD. Cooperative. HEENT: Atraumatic, normocephalic. Pulm: CTAB A&P. = Symmetrical chest rise. No increase work of breathing. No resp iratory distress. Cardiac: RRR, -mrg. Radial pulses intact and symmetrical. Abdominal: Nontender, nondistended, soft. BS present. All labs and images reviewed Abdominal pain 2/2 Gallbladder dysfunction: Cross cover anything with leukocytosis to 13.5 (now normal), AST/ALT 175/27, elevated alk phos right upper quadrant abdominal pain following meals suggestive of cholecystitis versus gallbladder dysfunction. Lipase is not elevated. Patient is continued on Zosyn. Transaminases uptrending. Lipase is not elevated Gallbladder ultrasound with borderline 3 mm thickening and sludge, no stones appreciated. General surgery consulted, recommend MRCP versus EUS prior to potential cholecystectomy; GI consulted. Hypertension: Lisinopril held on admission. Blood pressure at goal. Subjective Patient seen at the bedside this morning. Patient stated he is feeling fine this morning and without pain or nausea. He was wondering what his hospital course will be since he is usually an active [place]. Review of Systems Review of Systems: All systems reviewed & are unremarkable except as noted in HPI & below Physical Exam Constitutional: WD/WN, vitals as above Eyes: PERRL, conjunctivae normal, anicteric sclerae Respiratory: normal respiratory effort, lungs clear to auscultation Cardiovascular: RRR, no murmur, no edema Gastrointestinal (Abdomen): normal bowel sounds, soft, nontender, no hepatosplenomegaly Negative Cavanaugh's sign. Results & Data Results & Data ([facility]) Vital Signs (Past 12 Hours) Vital Signs Temp Pulse Resp BP Pulse Ox 09/23/21 06:57 36.5 C 61 16 116/72 95 09/22/21 23:40 37 C 58 L 18 123/64 96 CBC w Diff Results Results CBC w Diff Results: RBC 4.14 M/uL (4.7-6.1) L 09/23/21 WBC 7.81 K/uL (4.8-10.8) 09/23/21 Hgb 13.0 g/dL (14.0-18.0) L 09/23/21 Hct 39.7 % (42-52) L 09/23/21 MCV 95.9 fL (80-100) 09/23/21 MCH 31.4 pg (25-34) 09/23/21 MCHC 32.7 g/dL (32-36) 09/23/21 RDW Standard Deviation 53.2 fL (36.4-46.3) H 09/23/21 RDW Coefficient of Variation 15.1 % (11.5-14.5) H 09/23/21 Plt Count 284 K/uL (130-400) 09/23/21 MPV 9.5 fL (7.4-10.4) 09/23/21 Neutrophils (%) (Auto) 69.1 % 09/23/21 Lymphocytes (%) (Auto) 14.6 % 09/23/21 Monocytes # (Auto) 0.82 K/uL (0.11-0.59) H 09/23/21 Eosinophils # (Auto) 0.40 K/uL (0-0.5) 09/23/21 Immature Granulocyte % (Auto) 0.4 % 09/23/21 Neutrophils # (Auto) 5.40 K/uL (1.4-6.5) 09/23/21 Lymphocytes # (Auto) 1.14 K/uL (1.2-3.4) L 09/23/21 Monocytes # (Auto) 0.82 K/uL (0.11-0.59) H 09/23/21 Eosinophils # (Auto) 0.40 K/uL (0-0.5) 09/23/21 Basophils # (Auto) 0.02 K/uL (0-0.2) 09/23/21 Immature Granulocyte # (Auto) 0.03 K/uL (0.00-0.02) H 09/23/21 Chemistry (BMP) Results BMP Results: Sodium 144 mmol/L (136-145) 09/23/21 Potassium 3.7 mmol/L (3.5-5.1) 09/23/21 Chloride 113 mmol/L (98-107) H 09/23/21 Carbon Dioxide 26 mmol/L (21-32) 09/23/21 Anion Gap 5.0 (3-11) 09/23/21 BUN 18 mg/dl (7-18) 09/23/21 Creatinine 1.29 mg/dl (0.6-1.4) 09/23/21 Glucose 86 mg/dl (70-99) 09/23/21 Resident Activity Tracking Resident Involvement: Resident Care Provided Care Provided: [facility]
[2021-09-23 08:56] LABS: Basophils # (auto) 0.02 K/uL (0-0.2); Basophils % (auto) 0.3 %; Eosinophils % (auto) 5.1 %; Hematocrit (blood only) 39.7 % (42-52); Immature Granulocytes # (auto) 0.03 K/uL (0.00-0.02); Immature Granulocytes % (auto) 0.4 %; Lymphocytes # (auto) 1.14 K/uL (1.2-3.4); Lymphocytes % (auto) 14.6 %; Mean Corpuscular Hemoglobin 31.4 pg (25-34); Mean Corpuscular Hgb Conc 32.7 g/dL (32-36); Mean Corpuscular Volume 95.9 fL (80-100); Mean Platelet Volume 9.5 fL (7.4-10.4); Monocytes # (auto) 0.82 K/uL (0.11-0.59); Monocytes % (auto) 10.5 %; Neutrophils % (auto) 69.1 %; Platelet Count 284 K/uL (130-400); RDW Coefficient of Variation 15.1 % (11.5-14.5); RDW Standard Deviation 53.2 fL (36.4-46.3); Red Blood Count 4.14 M/uL (4.7-6.1); White Blood Count 7.81 K/uL (4.8-10.8)
[2021-09-23 09:20] LABS: Albumin Level 2.7 gm/dl (3.4-5.0); BUN Creatinine Ratio 13.6 (10-20); Calcium 8.6 mg/dl (8.5-10.1); Est GFR (African American) 59.9 ml/min; Est GFR (Non-African American) 51.7 ml/min; Potassium 3.7 mmol/L (3.5-5.1)
[2021-09-23 09:23] LABS: Albumin Globulin Ratio 0.8 (0.9-2); Globulin 3.5 gm/dl (2.5-4.0); Total Protein 6.2 gm/dl (6.4-8.2)
[2021-09-23 10:14] LABS: Bilirubin,Total 2.1 mg/dl (0.2-1)
--- NOTE | 2021-09-23 11:01 | Surgery Progress Note ---
Date of Service September 23, 2021 Assessment & Plan (1) Abnormal gallbladder ultrasound: Plan: 81 yr old man with minimal gallbladder sludge and symptoms suggestive of gallbladder disease. Clinically, does not have acute cholecystitis on exam (no tenderness, no persistent pain) and MRCP shows no sign of acute cholecystitis. The trend in his liver tests is very suggestive of passage of sludge in common duct. MRCP can miss this and thus, I would recommend proceeding with EUS prior to gallbladder removal. This was discussed with Dr. Pryor as well as patient's daughter, Sangeetha. As he feels well, OK to advance diet. Discussed two options: if EUS can be done tomorrow, then he should stay and get gallbladder surgery this admission. If EUS will be delayed, consider discharge home and workup as outpatient with plans for gallbladder removal within next 2-3 weeks pending results. Will advance diet today. (2) Abnormal LFTs: Plan: Increasing suggestive of passage of sludge. Appear to have peaked and are now trending down. Admission and Anticipated Discharge Date Admission Date: September 21, 2021 Subjective Lying in bed. No pain, no nausea. Wants to go home. Wondering about the plan as he feels well. Review of Systems Review of Systems: All systems reviewed & are unremarkable except as noted in HPI & below Physical Exam Eyes: PERRL, conjunctivae normal, anicteric sclerae Neck: normal visual inspection and trachea midline Respiratory: normal respiratory effort, lungs clear to auscultation Cardiovascular: RRR, no murmur, no edema Gastrointestinal (Abdomen): normal bowel sounds, soft, nontender, no hepatosplenomegaly Musculoskeletal: no cyanosis or clubbing, extremities motor strength 5/5 Neurologic: no focal motor deficits Psychiatric: A+Ox3, euthymic affect Results & Data ([facility]) Vital Signs (Past 12 Hours) Vital Signs Temp Pulse Resp BP Pulse Ox 09/23/21 06:57 36.5 C 61 16 116/72 95 09/22/21 23:40 37 C 58 L 18 123/64 96 Laboratory Results 09/23/21 09/23/21 Range/Units 08:40 08:40 WBC 7.81 (4.8-10.8) K/uL RBC 4.14 L (4.7-6.1) M/uL Hgb 13.0 L (14.0-18.0) g/dL Hct 39.7 L (42-52) % MCV 95.9 (80-100) fL MCH 31.4 (25-34) pg MCHC 32.7 (32-36) g/dL RDW Std Deviation 53.2 H (36.4-46.3) fL RDW Coeff of Arturo 15.1 H (11.5-14.5) % Plt Count 284 (130-400) K/uL MPV 9.5 (7.4-10.4) fL Immature Gran % (Auto) 0.4 % Neut % (Auto) 69.1 % Lymph % (Auto) 14.6 % [place] % (Auto) 10.5 % Eos % (Auto) 5.1 % Baso % (Auto) 0.3 % Neut # (Auto) 5.40 (1.4-6.5) K/uL Lymph # (Auto) 1.14 L (1.2-3.4) K/uL [place] # (Auto) 0.82 H (0.11-0.59) K/uL Eos # (Auto) 0.40 (0-0.5) K/uL Baso # (Auto) 0.02 (0-0.2) K/uL Immature Gran # (Auto) 0.03 H (0.00-0.02) K/uL Sodium 144 (136-145) mmol/L Potassium 3.7 (3.5-5.1) mmol/L Chloride 113 H (98-107) mmol/L Carbon Dioxide 26 (21-32) mmol/L Anion Gap 5.0 (3-11) BUN 18 (7-18) mg/dl Creatinine 1.29 (0.6-1.4) mg/dl Est Cr Clr Drug Dosing 49.0 ml/min Est GFR ( Amer) 59.9 ml/min Est GFR (Non-Af Amer) 51.7 ml/min BUN/Creatinine Ratio 13.6 (10-20) Glucose 86 (70-99) mg/dl Calcium 8.6 (8.5-10.1) mg/dl Total Bilirubin 2.1 H D (0.2-1) mg/dl AST 104 H (15-37) U/L ALT 221 H (12-78) Alkaline Phosphatase 170 H (45-117) U/L Total Protein 6.2 L (6.4-8.2) gm/dl Albumin 2.7 L (3.4-5.0) gm/dl Globulin 3.5 (2.5-4.0) gm/dl Albumin/Globulin Ratio 0.8 L (0.9-2) Diagnostic Findings MRCP shows no gallstones, normal gallbladder wall, no signs of acute cholecystitis, no common duct stone.
--- NOTE | 2021-09-23 18:37 | Billing Data ---
Date of Service September 23, 2021 Coding Level of Care Code 10623 Subseq Hosp Care Lvl 2
[2021-09-24] MEDS: FAMOTIDINE 20 MG in SYRINGE 3 ML IV SCH ×3 (00:52→23:53)
[2021-09-24] MEDS: LACTATED RINGER'S 1,000 ML IV SCH ×3 (00:52→23:59)
[2021-09-24] MEDS: PIPERACILLIN/TAZOBACTAM 3.375 GM in DEXTROSE 5% 100 ML IV SCH ×3 (04:45→21:14)
--- NOTE | 2021-09-24 07:20 | Hospitalist Progress Note ---
Date of Service September 24, 2021 Assessment & Plan (1) Abdominal pain: Plan: 81 year old male PMHx elevate systolic BP without dx of HTN, hypokalemia, prostatitis, solitary pulmonary nodules, urniary hesitancy coming in for right upper abdominal pain for one day Abdominal pain with abnormal LFT: - WBC 13.51, AST 175, ALT 127, Alk Phos 175, Trop negative, lipase negative, UA +urobilinogen. - Repeat CMP yesterday AM: AST 262, ALT 315, Alk Phos 183. - CXR negative, US Gallbladder: borderline wall thickening, small amount sludge, no gallstones, - murphys - Cholesystitis vs choledocholithiasis vs hepatic steatosis. - Dr. Bowles general surgery consulted. - Repeat AST/ALT/Alk phos bumped indicating gallbladder sludge. - Recommended GI eval for clearing out sludge via MRCP vs EUS before reassessing for possible cholecystectomy. - GI consulted. -MRCP negative. Plan for EUS. Not done today due to patient with chewing tobacco in the morning. -EUS scheduled for tomorrow morning. - Given 2g cefoxetime in ED, switched to Pip/tazo 3.375 Q8h. - Cont to monitor Leukocytosis: - 13.51 on admission. - intrabiliary infection vs stress from pain. - 7.81 yesterday. Resolved GERD: - Cont. home omeprazole, famotidine Q12. HTN: - BP fluctuating 110-160s. Elevation likely from stress. - continue to hold lisinopril perioperatively. - Monitor vitals. Nicontine dependence - Chews - will need to quantify use to assess need for nicotine patch. DVT Prophylaxis: SCDs Code status: Full code. Dispo: Med/surg (2) Abnormal gallbladder ultrasound: Plan: 22 (3) Abnormal LFTs: (4) GERD without esophagitis: (5) Hypertension: Admission and Anticipated Discharge Date Admission Date: September 21, 2021 Supervising Physician Co-Signing Physician Notes Resident Physician Supervision Note: I independently interviewed and examined the patient and verified the zhu history and physical, reviewed labs and image studies and agree with resident Dr. Alvarado findings and care plan. Subjective Patient seen at the bedside this morning. Patient feeling fine this morning without complaints of nausea, abdominal pain, fevers, chills. Patient said he wants to go home but is understandable to stay to prevent further episodes of the pain he had earlier prior to admission. Physical Exam Constitutional: WD/WN, vitals as above Eyes: PERRL, conjunctivae normal, anicteric sclerae Respiratory: normal respiratory effort, lungs clear to auscultation Cardiovascular: RRR, no murmur, no edema Gastrointestinal (Abdomen): normal bowel sounds, soft, nontender, no hepatosplenomegaly Results & Data Results & Data ([facility]) Vital Signs (Past 12 Hours) Vital Signs Temp Pulse Resp BP Pulse Ox 09/23/21 23:31 36.5 C 55 L 18 110/72 96 Resident Activity Tracking Resident Involvement: Resident Care Provided Care Provided: Adult Hospital Medicine
--- NOTE | 2021-09-24 08:04 | Progress Notes ---
GASTROENTEROLOGY PROGRESS NOTE RACE: . ATTENDING PHYSICIAN: Dr. Alvarado. HISTORY OF PRESENT ILLNESS: I had the pleasure of seeing Joshua Claros today at his bedside. He stat es that he is not having any current abdominal pain at present. He denied any fevers, chills, nausea , vomiting, hematemesis, melena, or hematochezia. His laboratory studies from this morning did show a total bilirubin of 2.1, AST of 104, ALT of 221, and an alkaline phosphatase of 170 and his MRCP yes terday showed no evidence of an acute abnormality. PHYSICAL EXAMINATION: VITAL SIGNS: Includes temperature of 36.5, pulse 61, respirations 16, blood pressure 116/72, pulse o x 95% on room air. GENERAL: He is awake and cooperative, in no acute distress. CHEST: Clear to auscultation bilaterally. CARDIOVASCULAR: Regular rate and rhythm. ABDOMEN: Soft, mildly tender in the midepigastric area, nondistended. There are positive bowel soun ds. There is no appreciable hepatosplenomegaly. EXTREMITIES: No clubbing, cyanosis or edema. ASSESSMENT: An 81-year-old male with right upper quadrant and epigastric abdominal pain wi th elevated liver panel. PLAN: At the present time, I would recommend that the patient undergo an EUS/ERCP with Dr. Bowles fo r further evaluation. I did discuss this in detail with both Dr. Keiko Bowles of gastroenterology a s well as Dr. Sera Bowles of general surgery and we are all in agreement. Plans will be made for the patient to undergo this testing in the next few days and it will be scheduled based on availability in the OR due to continued limitations secondary to the COVID-19 pandemic. In the interim, I would c ontinue him on Zosyn 3.375 grams IV q. 8 hours and I would recommend continuing current therapy and s upportive care. Dr. Bowles will assume care of this patient on 09/24/2021. Once again, thanks for a bashirwing me to participate in the care of this patient. If you have any further questions, please do not hesitate in contacting me. Job ID: [id number]
--- NOTE | 2021-09-24 08:49 | Anesthesiology Consultation ---
Date of Service September 24, 2021 Assessment & Plan (1) Encounter for pre-operative examination: Chart Review Chart Review: Acceptable Risk for Surgery History Surgery Operation Date: 09/24/21 08:50 Proposed Procedures p Endoscopic Ultrasonography Upper - Keiko Bowles DO s Endoscopic Retrograde Cholangiopancreatogram - Keiko Bowles DO Height/Weight Height: 5 ft 7 in Weight: 93.7 kg Allergies Allergy/AdvReac Type Severity Reaction Status Date / Time No Known Allergies Allergy Verified 09/21/21 17:20 Medications Home Medications Medication Instructions Recorded Confirmed Last Taken lisinopril 5 mg tablet 5 mg PO QAM 09/21/21 09/21/21 09/21/21 omeprazole 20 mg capsule,delayed 20 mg PO DAILY PRN 09/21/21 09/21/21 09/19/21 release Active Medications Generic Name Dose Route Start Last Admin Trade Name Freq PRN Reason Stop Dose Admin Famotidine 20 mg/ Syringe 5 mls @ 2.5 mls/min 09/22/21 00:00 09/24/21 00:52 IV 10/22/21 00:00 2.5 mls/min Q12H AGUS Administration Piperacillin Sod/Tazobactam 115 mls @ 28.75 mls/hr 09/22/21 04:00 09/24/21 04:45 Sod 3.375 gm/ Dextrose IV 10/02/21 03:59 28.8 mls/hr Q8H AGUS Administration Protocol Lactated Ringer's 1,000 mls @ 80 mls/hr 09/21/21 22:51 09/24/21 00:52 Lr IV 10/21/21 22:50 80 mls/hr .[id number] AGUS Administration Past Medical History Medical History (Updated 09/24/21 @ 08:49 by Landry Maldonado MD) Elevated systolic blood pressure reading without diagnosis of hypertension Hypokalemia Prostatitis Solitary pulmonary nodule Urinary hesitancy Past Family History Family History Family/Other No problems noted. Other No pertinent family history Denies family history of Ovarian cancer Prostate cancer Diabetes Myocardial infarction Breast cancer Colorectal cancer Hypertension Past Surgical History Surgical History H/O knee surgery H/O repair of rotator cuff Social History Smoking Status: Never smoker tobacco type: smokeless tobacco Hx Alcohol Use: Yes alcohol intake frequency: holidays/special occasions only Alcohol Intake Frequency Comment: pt states he hasn't drank in over 40years Hx Substance Use: No substance use type: does not use Physical Exam Vital Signs Last Vital Signs Temp 36.6 C 09/24/21 07:33 Pulse 60 09/24/21 07:33 Resp 18 09/24/21 07:33 BP 122/60 09/24/21 07:33 Pulse Ox 97 09/24/21 07:33 Testing Laboratory Results 09/23/21 08:40 09/23/21 08:40 Urine Color Yellow 09/21/21 20:20 Urine Appearance Clear (Clear) 09/21/21 20:20 Urine pH 6.5 (4.5-7.5) 09/21/21 20:20 Ur Specific Ulysses 1.011 (1.000-1.030) 09/21/21 20:20 Urine Protein Negative (Negative) 09/21/21 20:20 Urine Glucose (UA) Negative (Negative) 09/21/21 20:20 Urine Ketones Negative (Negative) 09/21/21 20:20 Urine Nitrite Negative (Negative) 09/21/21 20:20 Ur Leukocyte Esterase Negative (Negative) 09/21/21 20:20 Electrocardiogram Date: 09/21/21 Findings: + NSR @ (72) and + NSST changes Chest X-Ray Date: 09/21/21 Findings: + NAD
--- NOTE | 2021-09-24 11:47 | Surgery Progress Note ---
Date of Service September 24, 2021 Assessment & Plan (1) Abnormal gallbladder ultrasound: Plan: 81 yr old man with minimal gallbladder sludge and symptoms suggestive of gallbladder disease. Clinically, does not have acute cholecystitis on exam (no tenderness, no persistent pain) and MRCP shows no sign of acute cholecystitis. The trend in his liver tests is very suggestive of passage of sludge in common duct. EUS/ERCP scheduled for today. Will await results of the EUS/ERCP to determine indication for cholecystectomy and timing. Will tentatively put him on schedule for laparoscopic cholecystectomy tomorrow with Dr. Vasques. Continue IV abx if diet advanced after EUS/ERCP today, NPO after midnight repeat labs in am Dr. Vasques was present during my examination and agrees with above. (2) Abnormal LFTs: Plan: not repeated today (09/24/21) Admission and Anticipated Discharge Date Admission Date: September 21, 2021 Subjective feeling good, no abdominal pain no nausea or vomiting +diarrhea going for EUS/ERCP today, unsure of time Physical Exam Constitutional: WD/WN, vitals as above no acute distress and not ill appearing Neck: normal visual inspection and trachea midline Respiratory: normal respiratory effort; no respiratory distress, no labored breathing and no retractions Gastrointestinal (Abdomen): Inspection/Auscultation: abdomen normal to inspection; abdomen not distended and no abdominal surgical scar Percussion/Palpation: abdomen soft; abdomen nontender, no guarding and abdomen not rigid Skin: no rashes, warm and dry no jaundice Psychiatric: A+Ox3, euthymic affect Results & Data ([facility]) Vital Signs (Past 12 Hours) Vital Signs Temp Pulse Resp BP Pulse Ox 09/24/21 07:33 36.6 C 60 18 122/60 97
--- NOTE | 2021-09-24 12:07 | Gastroenterology Progress Note ---
Date of Service September 24, 2021 Assessment & Plan (1) Abnormal LFTs: Plan: Bump in his LFTs with upper abd pain is suggestive of choledocholithiasis/microlithiasis. - EUS this afternoon by Dr. Bowles. ERCP if indicated. - Please keep NPO. - Further recommendations to follow. Admission and Anticipated Discharge Date Admission Date: September 21, 2021 Supervising Physician Co-Signing Physician Notes I saw and evaluated the patient. We are planning to do upper endoscopy, endoscopic ultrasound and ERCP after he presented with abdominal pain and elevated liver function tests. Physical exam Mild scleral icterus Mild right upper quadrant tenderness Impression: Patient with a history of abdominal pain elevated liver enzymes and equivocal imaging. We will proceed with upper endoscopy and endoscopic ultrasound as part of further evaluation. If he is found to have evidence of choledocholithiasis we would then proceed with ERCP. I have discussed the risks and benefits of the procedures to include bleeding, infection, perforation, pain, pancreatitis, failed biliary cannulation and need for follow-up proc edures. Unfortunately the patient did chew tobacco this morning, it is unclear why this was allowed on an inpatient at the hospital. Should the procedure to be delayed too long we may need to arrange another time perhaps tomorrow or the next day as the patient and nursing staff were unable to follow basic instructions about n.p.o. status Subjective 81 yr old male pt of Stacy Jordan NP at [facility] who presented to [facility] ED on 09/21/21 for upper abd pain. Denies any yellow eyes/skin, fevers, chills or sweats. Had nausea/vomiting and abd pain - all resolved. LFTs elevated, all decreasing, today: T BIli 2.1, AST 104, ALT 221, ALk Phos 170, no leukocytosis, lipase has been normal. US with gallstones and wall thickening. US/MRCP with normal CBD. Not on any anticoagulants. Review of Systems Review of Systems: ROS: Gen: Denies weakness, fevers, weight loss Eyes: No eye redness, or pain, no recent vision changes Resp: No SOB, no cough Cardio: No palpitations/irregular beats, no chest pain GI: As per HPI, otherwise (-). : Denies pain on urination Skin: No jaundice, itching or new rashes Physical Exam Constitutional: well developed, + thin and cooperative Eyes: PERRL, conjunctivae normal, anicteric sclerae Respiratory: normal respiratory effort, lungs clear to auscultation Cardiovascular: RRR, no murmur, no edema Gastrointestinal (Abdomen): normal bowel sounds, soft, nontender, no hepatosplenomegaly Skin: no rashes, warm and dry normal turgor Neurologic: PERRL, EOMI, accommodation nl, no face palsy, no dysarthria awake; not confused Psychiatric: A+Ox3, euthymic affect Results & Data ([facility]) Vital Signs (Past 12 Hours) Vital Signs Temp Pulse Resp BP Pulse Ox 09/24/21 07:33 36.6 C 60 18 122/60 97 Laboratory Results WBC 7.8, HB 13, HCT 39.7, PLT S2 184, Na 144, K 3.7, Cl 113, CO2 26, BUN 18, CR 1.29, T bili 2.1, AST 104, ALT 221, alk-phos 170. Lipase was 115 on arrival. Diagnostic Findings US 09/21/21: 1. Borderline gallbladder wall thickening with a small amount of gallbladder sludge. However, no gallstones and a negative sonographic Cavanaugh sign. Therefore, acute cholecystitis is considered less likely. 2. Normal caliber common bile duct for the patient's age. 3. Mild hepatic steatosis. MRCP 09/22/21: No evidence of acute abnormality. The common bile duct is normal in caliber and smooth in contour.
[2021-09-24] MEDS ORDERED: NEOSTIGMINE METHYLSULFATE 1 MG/ML 10ML VIAL ONE (13:19)
[2021-09-24] MEDS ORDERED: GLYCOPYRROLATE 0.2 MG/ML VIAL ONE (13:19)
[2021-09-24] MEDS ORDERED: LIDOCAINE 2% 2 ML VIAL/AMP(20MG/ML) INFIL ONE (13:19)
[2021-09-24] MEDS ORDERED: ROCURONIUM BROMIDE 10 MG/ML 5 ML VIAL IV ONE (13:19)
[2021-09-24] MEDS ORDERED: DEXAMETHASONE SOD INJ 4 MG/ML VIAL ONE (13:19)
[2021-09-24] MEDS ORDERED: PROPOFOL IV EMULSION 10 MG/ML 20 ML VIAL IV ONE (13:19)
[2021-09-24] MEDS ORDERED: fentaNYL citrate 100 MCG/2 ML VIAL ONE (13:19)
[2021-09-24] MEDS ORDERED: LARYING-O-JET KIT (LTA) ONE (13:19)
[2021-09-24] MEDS ORDERED: ePHEDrine sulfate 50 MG/ML SYR ONE (13:19)
[2021-09-24] MEDS ORDERED: ONDANSETRON INJ 2 MG/ML 2 ML VIAL ONE (13:19)
--- NOTE | 2021-09-24 14:35 | Communication Note ---
Date of Service: September 24, 2021 We had plan to do upper endoscopy, endoscopic ultrasound and possible ERCP today. Unfortunately the patient did have chewing tobacco this morning around 930 this morning. As result this is considered a full stomach per anesthesia guidelines. I would recommend that we postpone the patient's procedure until tomorrow and ensure that he has n.p.o. after midnight to ensure that his procedure does not get delayed again.
[2021-09-25] MEDS: PIPERACILLIN/TAZOBACTAM 3.375 GM in DEXTROSE 5% 100 ML IV SCH ×3 (04:23→20:23)
--- NOTE | 2021-09-25 07:01 | Hospitalist Progress Note ---
Date of Service September 25, 2021 Assessment & Plan (1) Abdominal pain: Plan: 81 year old male PMHx elevate systolic BP without dx of HTN, hypokalemia, prostatitis, solitary pulmonary nodules, urniary hesitancy coming in for right upper abdominal pain for one day Abdominal pain with abnormal LFT: - WBC 13.51, - US Gallbladder: borderline wall thickening, small amount sludge, no gallstones - GI consulted. -MRCP negative. Plan for EUS. -EUS showed numerous stones in gallbladder, common bile duct w/o stones or dilation, addie-ampullary diverticulum. -Recommend further eval by surgery for possible cholecystectomy. -Tentatively scheduled tomorrow with Dr. Vasques. - Received 2g cefoxetime in ED, switched to Pip/tazo 3.375 Q8h (Day 4). - Cont to monitor GERD: - Cont. home omeprazole, famotidine Q12. HTN: - BP fluctuating 110-160s. Elevation likely from stress. - continue to hold lisinopril perioperatively. - Monitor vitals. Nicontine use - Chews - Patient denied need for nicotine patch. DVT Prophylaxis: SCDs Code status: Full code. Dispo: Med/surg (2) Abnormal gallbladder ultrasound: Plan: 22 (3) Abnormal LFTs: (4) GERD without esophagitis: (5) Hypertension: Admission and Anticipated Discharge Date Admission Date: September 21, 2021 Supervising Physician Co-Signing Physician Notes Resident Physician Supervision Note: I independently interviewed and examined the patient and verified the zhu history and physical, reviewed labs and image studies and agree with resident Dr. Alvarado findings and care plan. Subjective Patient seen at the bedside this morning. Patient denies any pain, nausea, vomiting, fevers, or chills. States he feels well and wants to go home due to being an active [place]. He is willing to stay for further management of his recent onset of pain though if it'll mean he doesn't have it happen again. Physical Exam Constitutional: WD/WN, vitals as above Eyes: PERRL, conjunctivae normal, anicteric sclerae Respiratory: normal respiratory effort, lungs clear to auscultation Cardiovascular: RRR, no murmur, no edema Gastrointestinal (Abdomen): normal bowel sounds, soft, nontender, no hepatosplenomegaly Results & Data Results & Data ([place]) Vital Signs (Past 12 Hours) Vital Signs Temp Pulse Resp BP Pulse Ox 09/24/21 22:25 36.7 C 55 L 18 128/71 95 Resident Activity Tracking Resident Involvement: Resident Care Provided Care Provided: Adult Hospital Medicine
[2021-09-25 08:22] LABS: Basophils # (auto) 0.03 K/uL (0-0.2); Basophils % (auto) 0.4 %; Eosinophils # (auto) 0.21 K/uL (0-0.5); Eosinophils % (auto) 2.8 %; Hemoglobin 12.7 g/dL (14.0-18.0); Immature Granulocytes # (auto) 0.02 K/uL (0.00-0.02); Immature Granulocytes % (auto) 0.3 %; Lymphocytes # (auto) 1.37 K/uL (1.2-3.4); Lymphocytes % (auto) 18.6 %; Mean Corpuscular Hemoglobin 31.4 pg (25-34); Mean Corpuscular Hgb Conc 32.6 g/dL (32-36); Mean Corpuscular Volume 96.3 fL (80-100); Mean Platelet Volume 9.6 fL (7.4-10.4); Monocytes # (auto) 0.62 K/uL (0.11-0.59); Monocytes % (auto) 8.4 %; Neutrophils # (auto) 5.13 K/uL (1.4-6.5); Neutrophils % (auto) 69.5 %; Platelet Count 279 K/uL (130-400); RDW Standard Deviation 53.5 fL (36.4-46.3); Red Blood Count 4.05 M/uL (4.7-6.1); White Blood Count 7.38 K/uL (4.8-10.8)
[2021-09-25 08:54] LABS: Albumin Globulin Ratio 0.7 (0.9-2); Albumin Level 2.6 gm/dl (3.4-5.0); BUN Creatinine Ratio 7.8 (10-20); Calcium 8.4 mg/dl (8.5-10.1); Creatinine Clr Calc Pharmacy 52.7 ml/min; Est GFR (African American) 65.3 ml/min; Est GFR (Non-African American) 56.4 ml/min; Globulin 3.5 gm/dl (2.5-4.0); Potassium 3.6 mmol/L (3.5-5.1); Total Protein 6.1 gm/dl (6.4-8.2)
[2021-09-25 08:59] LABS: Bilirubin,Total 0.9 mg/dl (0.2-1)
--- NOTE | 2021-09-25 11:23 | Gastroenterology Progress Note ---
Date of Service September 25, 2021 Assessment & Plan (1) Abnormal LFTs: Plan: Bump in his LFTs with upper abd pain - suggestive of choledocholithiasis/microlithiasis. - EUS this afternoon by Dr. Bowles. ERCP if indicated. - Please keep NPO. - Further recommendations to follow. Admission and Anticipated Discharge Date Admission Date: September 21, 2021 Supervising Physician Co-Signing Physician Notes I saw and evaluated the patient. He had presented with abdominal pain and a significant elevation of his liver associated enzymes. We are planning to do endoscopic ultrasound and possible ERCP today. I have discussed the risks of the procedures with the patient to include bleeding, infection, perforation, pa in, pancreatitis and failed biliary cannulation. Subjective Patient seen at the bedside this morning. 81 yr old male pt of Stacy Jordan NP at [facility] who presented to [facility] ED on 09/21/21 for upper abd pain. Denies any yellow eyes/skin, fevers, chills or sweats. Had nausea/vomiting and abd pain - all resolved. LFTs elevated, all decreasing, today: T BIli 2.1, AST 104, ALT 221, ALk Phos 170, no leukocytosis, lipase has been normal. US with gallstones and wall thickening. US/MRCP with normal CBD. Not on any anticoagulants. Review of Systems Review of Systems: ROS: Gen: Denies weakness, fevers, weight loss Eyes: No eye redness, or pain, no recent vision changes Resp: No SOB, no cough Cardio: No palpitations/irregular beats, no chest pain GI: As per HPI, otherwise (-). : Denies pain on urination Skin: No jaundice, itching or new rashes Physical Exam Constitutional: well developed, + thin and cooperative Eyes: PERRL, conjunctivae normal, anicteric sclerae Respiratory: normal respiratory effort, lungs clear to auscultation Cardiovascular: RRR, no murmur, no edema Gastrointestinal (Abdomen): normal bowel sounds, soft, nontender, no hepatosplenomegaly Skin: no rashes, warm and dry normal turgor Neurologic: PERRL, EOMI, accommodation nl, no face palsy, no dysarthria awake; not confused Psychiatric: A+Ox3, euthymic affect Results & Data ([facility]) Vital Signs (Past 12 Hours) Vital Signs Temp Pulse Resp BP 01/11/22 08:36 36.7 C 51 L 18 154/90 H Laboratory Results WBC 7.38, Hb 12.7, HCT 39, glucose 279, NA 143, K3.6, CL 110, CO2 21, BUN 9, CR 1.2, glucose 98, T bili 0.9, AST 27, ALT 109, alk phos 141 Diagnostic Findings MRCP 09/22/21: Liver: Unremarkable. No focal lesions are seen. Gallbladder and biliary tree: No calcified gallstones. Normal caliber wall. No intra- or extrahepatic biliary ductal dilation. Pancreas: Unremarkable, no focal lesions. GBUS 09/21/21: 1. Borderline gallbladder wall thickening with a small amount of gallbladder sludge. However, no gallstones and a negative sonographic Cavanaugh sign. Therefore, acute cholecystitis is considered less likely. 2. Normal caliber common bile duct for the patient's age. 3. Mild hepatic steatosis.
[2021-09-25] MEDS: FAMOTIDINE 20 MG in SYRINGE 3 ML IV SCH (12:30)
[2021-09-25] MEDS ORDERED: ONDANSETRON INJ 2 MG/ML 2 ML VIAL ONE (12:33)
[2021-09-25] MEDS ORDERED: LIDOCAINE 2% 2 ML VIAL/AMP(20MG/ML) INFIL ONE (12:33)
[2021-09-25] MEDS ORDERED: ROCURONIUM BROMIDE 10 MG/ML 5 ML VIAL IV ONE (12:33)
[2021-09-25] MEDS ORDERED: PROPOFOL IV EMULSION 10 MG/ML 20 ML VIAL IV ONE (12:33)
[2021-09-25] MEDS ORDERED: SUCCINYLCHOLINE CHLORIDE 20 MG/ML 10 ML VIAL IV ONE (12:33)
[2021-09-25] MEDS ORDERED: LARYING-O-JET KIT (LTA) ONE (12:33)
[2021-09-25] MEDS ORDERED: fentaNYL citrate 100 MCG/2 ML VIAL ONE (12:33)
--- NOTE | 2021-09-25 12:57 | Surgery Progress Note ---
Date of Service September 25, 2021 Assessment & Plan (1) Abnormal gallbladder ultrasound: Plan: 81 yr old man with minimal gallbladder sludge and symptoms suggestive of gallbladder disease. Clinically, does not have acute cholecystitis on exam (no tenderness, no persistent pain) and MRCP shows no sign of acute cholecystitis. The trend in his liver tests is very suggestive of passage of sludge in common duct. EUS/ERCP scheduled for today. Will await results of the EUS/ERCP to determine indication for cholecystectomy and timing. Will tentatively put him on schedule for laparoscopic cholecystectomy tomorrow with Dr. Vasques. Continue IV abx if diet advanced after EUS/ERCP today, NPO after midnight repeat labs in am Dr. Vasques was present during my examination and agrees with above. I recommend to do laparoscopic cholecystectomy, possible open or cholangiogram t omorrow, D/W benefits, risks and alternatives of the surgery, the risks - infection, bleeding, injury other organs, MS, DVT, stroke, , pt understood, he agrees with the surgery, I answered all questions, (2) Abnormal LFTs: Plan: not repeated today (09/24/21) Admission and Anticipated Discharge Date Admission Date: September 21, 2021 Supervising Physician Co-Signing Physician Notes Resident Physician Supervision Note: I independently interviewed and examined the patient and verified the zhu history and physical, reviewed labs and image studies and agree with resident Dr. Alvarado findings and care plan. Subjective Patient seen at the bedside this morning. 81 yr old male pt of Stacy Jordan HEMODIALYSIS PATIENT CARE SPECIALIST at [facility] who presented to [facility] ED on 09/21/21 for upper abd pain. Denies any yellow eyes/skin, fevers, chills or sweats. Had nausea/vomiting and abd pain - all resolved. LFTs elevated, all decreasing, today: T BIli 2.1, AST 104, ALT 221, ALk Phos 170, no leukocytosis, lipase has been normal. US with gallstones and wall thickening. US/MRCP with normal CBD. Not on any anticoagulants. 09/25/2021 12:55PM Dr. Vasques feeling good, no abdominal pain no nausea or vomiting, no fever, going for EUS/ERCP today, unsure of time Review of Systems Gastrointestinal: constipation, has a bowel movement every 2-3 days, last was a few days ago Physical Exam Constitutional: WD/WN, vitals as above Eyes: PERRL, conjunctivae normal, anicteric sclerae Neck: trachea midline, no thyromegaly Respiratory: normal respiratory effort, lungs clear to auscultation Cardiovascular: RRR, no murmur, no edema Gastrointestinal (Abdomen): normal bowel sounds, soft, nontender, no hepatosplenomegaly Neurologic: patellar DTR's 2+ bilat, sensation intact Psychiatric: A+Ox3, euthymic affect Results & Data ([facility]) Vital Signs (Past 12 Hours) Vital Signs Temp Pulse Resp BP Pulse Ox 09/25/21 12:41 36.5 C 58 L 20 148/93 H 98 09/25/21 08:36 36.7 C 51 L 18 154/90 H Laboratory Results Abnormal lab results 09/25/21 09/25/21 Range/Units 08:02 08:02 RBC 4.05 L (4.7-6.1) M/uL Hgb 12.7 L (14.0-18.0) g/dL Hct 39.0 L (42-52) % RDW Std Deviation 53.5 H (36.4-46.3) fL RDW Coeff of Arturo 15.0 H (11.5-14.5) % Caroline # (Auto) 0.62 H (0.11-0.59) K/uL Chloride 110 H (98-107) mmol/L BUN/Creatinine Ratio 7.8 L (10-20) Calcium 8.4 L (8.5-10.1) mg/dl ALT 109 H (12-78) Alkaline Phosphatase 141 H (45-117) U/L Total Protein 6.1 L (6.4-8.2) gm/dl Albumin 2.6 L (3.4-5.0) gm/dl Albumin/Globulin Ratio 0.7 L (0.9-2) Diagnostic Findings ABDOMINAL ULTRASOUND, RIGHT UPPER QUADRANT HISTORY: Right upper quadrant abdominal pain.. COMPARISON: None. FINDINGS: Pancreas: Obscured by overlying bowel gas. Liver: The liver is echogenic consistent with fatty change. 15 cm in length. Gallbladder: Borderline gallbladder wall thickening at 3 mm. However, the negative sonographic Cavanaugh sign. Small amount of sludge within the gallbladder. No definite gallstones. CBD: 7 mm. This is within normal limits given the patient's age. Right kidney: No hydronephrosis. IMPRESSION: 1. Borderline gallbladder wall thickening with a small amount of gallbladder sludge. However, no gallstones and a negative sonographic Cavanaugh sign. Therefore, acute cholecystitis is considered less likely. 2. Normal caliber common bile duct for the patient's age. 3. Mild hepatic steatosis.
[2021-09-25] MEDS ORDERED: ONDANSETRON INJ 2 MG/ML 2 ML VIAL IV PRN (13:11)
[2021-09-25] MEDS ORDERED: LABETALOL HCL IV 5 MG/ML 20ML IV PRN (13:11)
[2021-09-25] MEDS ORDERED: PROMETHAZINE HCL 12.5 MG in SODIUM CHLORIDE 0.9% 50 ML IV PRN (13:11)
[2021-09-25] MEDS ORDERED: FLUMAZENIL 0.1 MG/1 ML 10 ML VIAL IV PRN (13:11)
[2021-09-25] MEDS ORDERED: NALOXONE HCL 0.4 MG/1 ML VIAL/CARP IV PRN (13:11)
[2021-09-25] MEDS ORDERED: fentaNYL citrate 100 MCG/2 ML VIAL IV PRN (13:11)
[2021-09-25] MEDS ORDERED: ePHEDrine sulfate 50 MG/ML AMP IV PRN (13:11)
[2021-09-25] MEDS ORDERED: ATROPINE SULFATE 0.1 MG/ML 10ML SYR IV PRN (13:11)
[2021-09-25] MEDS ORDERED: INDOMETHACIN 50 MG SUPP PR ONE ×2 (13:33→13:36)
--- NOTE | 2021-09-25 14:05 | GI REPORT ---
Patient Name: Joshua Claros Procedure Date: 09/25/2021 1:35 PM Date of : 1940 Admit Type: Inpatient Age: 81 Gender: Male Attending MD: Keiko Bowles DO Procedure: Upper EUS Providers: Keiko Bowles DO Referring MD: Abena Yates Indications: Elevated liver enzymes, Suspected choledocholithiasis, Epigastric abdominal pain, Abdominal pain in the right upper quadrant Medicines: General Anesthesia Complications: No immediate complications. Estimated blood loss: Minimal. Estimated Blood Loss: Estimated blood loss was minimal. Procedure: Pre-Anesthesia Assessment: - Prior to the procedure, a History and Physical was performed, and patient medications, allergies and sensitivities were reviewed. The patient's tolerance of previous anesthesia was reviewed. - The risks and benefits of the procedure and the sedation options and risks were discussed with the patient. All questions were answered and informed consent was obtained. - Patient identification and proposed procedure were verified prior to the procedure by the physician, the nurse and the window treatment installer. The procedure was verified in the procedure room. - Pre-procedure physical examination revealed no contraindications to sedation. - ASA Grade Assessment: IV - A patient with severe systemic disease that is a constant threat to life. - After reviewing the risks and benefits, the patient was deemed in satisfactory condition to undergo the procedure. - The anesthesia plan was to use general anesthesia. - Immediately prior to administration of medications, the patient was re-assessed for adequacy to receive sedatives. - The heart rate, respiratory rate, oxygen saturations, blood pressure, adequacy of pulmonary ventilation, and response to care were monitored throughout the procedure. - The physical status of the patient was re-assessed after the procedure. After obtaining informed consent, the endoscope was passed under direct vision. Throughout the procedure, the patient's blood pressure, pulse, and oxygen saturations were monitored continuously. The Scope was introduced through the mouth, and advanced to the second part of duodenum. The upper EUS was accomplished without difficulty. The patient tolerated the procedure well. Findings: ENDOSONOGRAPHIC FINDING: : Periampullary diverticulum There was no sign of significant endosonographic abnormality in the common bile duct. The maximum diameter of the duct was 5 mm. No stones, no biliary sludge and ducts of normal caliber were identified. Multiple stones were visualized endosonographically in the gallbladder. They were hyperechoic and characterized by shadowing. There was no sign of significant endosonographic abnormality in the entire pancreas. No masses, no cysts, the pancreatic duct was thin in caliber. There was no sign of significant endosonographic abnormality in the visualized portion of the liver. Homogeneous parenchyma and no focal pathology were identified. No lymphadenopathy seen. Impression: - There was no sign of significant pathology in the common bile duct. - Multiple stones were visualized endosonographically in the gallbladder. - There was no sign of significant pathology in the entire pancreas. - There was no evidence of significant pathology in the visualized portion of the liver. - No specimens collected. Recommendation: - Return patient to [facility] for ongoing care. - Presentation most consistent with patient passing a stone through the CBD, would suggest cholecystectomy for definitive managment. Keiko Bowles D.O. Keiko Bowles, 09/25/2021 2:04:53 PM This report has been signed electronically. Note Initiated On: 09/25/2021 1:35 PM Number of Addenda: 0 I attest to the content of the Intraoperative Record and orders documented therein, exceptions below {[id number]}
--- NOTE | 2021-09-25 14:05 | Post Operative Brief Note ---
Immediate Post Op Note v1 Date of Surgery September 25, 2021 Pre & Post Diagnosis Operation Date: 09/24/21 08:50 <No data on this case meets the specified criteria> Operation Date: 09/25/21 08:20 Pre-Op Diagnosis: CHOLECYSTITIS Post-Op Diagnosis: cholelithiasis I identified the patient and participated in the time-out.: Yes Procedure Operation Date: 09/24/21 08:50 <No data on this case meets the specified criteria> Operation Date: 09/25/21 08:20 Actual Procedures p Endoscopic Ultrasonography Upper - Keiko Bowles DO Operation Date: 09/25/21 10:55 <No data on this case meets the specified criteria> Operation Date: 09/26/21 10:40 <No data on this case meets the specified criteria> Surgeon Keiko Bowles DO [employer] Coordination And Production Head none Estimated Blood Loss 0 Findings Consistent with Post-Op Diagnosis
--- NOTE | 2021-09-25 14:07 | Communication Note ---
Date of Service: September 25, 2021 The patient underwent endoscopic ultrasound this afternoon. He was found to have numerous stones within the gallbladder. The common bile duct measured approximately 5 mm in diameter and contained no obvious stones today. There is a periampullary diverticulum which makes visualization of the distal common bile duct somewhat difficult. As the patient's liver enzymes continue to normalize and his bilirubin is now less than 1 I would recommend further evaluation by general surgery to discuss cholecystectomy. Please call with any questions or concerns.
--- NOTE | 2021-09-25 14:45 | Anesthesiology Progress Note ---
Date of Service September 25, 2021 Anesthesia Post Procedure Vital Signs Vital Signs: Temp Pulse Pulse Resp BP Pulse Ox 09/25/21 14:35 68 18 101/78 98 09/25/21 14:25 66 18 99/77 L 98 09/25/21 14:15 36.2 C L 72 20 123/70 98 09/25/21 12:41 36.5 C 58 L 20 148/93 H 98 09/25/21 08:36 36.7 C 51 L 18 154/90 H 09/24/21 22:25 36.7 C 55 L 18 128/71 95 09/24/21 16:18 36.3 C L 54 L 16 147/74 H 97 Transfer of Care Handoff Completed per policy Notes Mental Status: alert / awake / arousable Patient Amnestic to Procedure: Yes Nausea / Vomiting: adequately controlled Pain: adequately controlled Airway Patency, RR, SpO2: stable & adequate BP & HR: stable & adequate Hydration State: stable & adequate Anesthetic Complications: no major complications apparent
[2021-09-25] MEDS: LACTATED RINGER'S 1,000 ML IV SCH ×2 (15:37→21:49)
[2021-09-26] MEDS: FAMOTIDINE 20 MG in SYRINGE 3 ML IV SCH ×2 (00:11→13:56)
[2021-09-26] MEDS: PIPERACILLIN/TAZOBACTAM 3.375 GM in DEXTROSE 5% 100 ML IV SCH ×3 (04:19→20:31)
--- NOTE | 2021-09-26 07:09 | Hospitalist Progress Note ---
Date of Service September 26, 2021 Assessment & Plan (1) Abdominal pain: Plan: 81 year old male PMHx elevate systolic BP without dx of HTN, hypokalemia, prostatitis, solitary pulmonary nodules, urinary hesitancy coming in for right upper abdominal pain for one day Acute cholecystitis/Cholelithiasis - s/p Lap dc Presented with abdominal pain with abnormal LFT: - WBC 13.51, - US Gallbladder: borderline wall thickening, small amount sludge, no gallstones - GI consulted. -MRCP negative. -EUS showed numerous stones in gallbladder, common bile duct w/o stones or dilation, addie-ampullary diverticulum. -Lap dc today with Dr. Vasques without complication. - Received 2g cefoxetime in ED, switched to Pip/tazo 3.375 Q8h (Day 5). - Cont to monitor GERD: - Cont. home omeprazole, famotidine Q12. HTN: - BP fluctuating 110-160s. Elevation likely from stress. - continue to hold lisinopril perioperatively. - Monitor vitals. Nicontine use - Chews - Patient denied need for nicotine patch. DVT Prophylaxis: SCDs Code status: Full code. Dispo: Med/surg (2) Abnormal gallbladder ultrasound: Plan: (3) Abnormal LFTs: (4) GERD without esophagitis: (5) Hypertension: Admission and Anticipated Discharge Date Admission Date: September 21, 2021 Supervising Physician Co-Signing Physician Notes Resident Physician Supervision Note: I independently interviewed and examined the patient and verified the zhu history and physical, reviewed labs and image studies and agree with resident Dr. Alvarado findings and care plan. Subjective Patient seen at the bedside this morning. Patient feeling well this morning. He is currently waiting for his surgery this afternoon. Denies pain or nausea, fevers or chills. Physical Exam Constitutional: WD/WN, vitals as above Eyes: PERRL, conjunctivae normal, anicteric sclerae Respiratory: normal respiratory effort, lungs clear to auscultation Cardiovascular: RRR, no murmur, no edema Gastrointestinal (Abdomen): normal bowel sounds, soft, nontender, no hepatosplenomegaly Results & Data Results & Data ([facility]) Vital Signs (Past 12 Hours) Vital Signs Temp Pulse Resp BP Pulse Ox 09/26/21 02:49 36.7 C 51 L 16 105/62 92 01/11/22 22:20 37.1 C 56 L 16 103/61 95 09/25/21 19:21 37.2 C 55 L 18 103/64 93 Resident Activity Tracking Resident Involvement: Resident Care Provided Care Provided: Adult Hospital Medicine
[2021-09-26] MEDS ORDERED: fentaNYL citrate 100 MCG/2 ML VIAL ONE (09:08)
[2021-09-26] MEDS ORDERED: DEXAMETHASONE SOD INJ 4 MG/ML VIAL ONE (09:08)
[2021-09-26] MEDS ORDERED: ONDANSETRON INJ 2 MG/ML 2 ML VIAL ONE (09:08)
[2021-09-26] MEDS ORDERED: PROPOFOL IV EMULSION 10 MG/ML 20 ML VIAL IV ONE (09:08)
[2021-09-26] MEDS ORDERED: GLYCOPYRROLATE 0.2 MG/ML VIAL ONE ×2 (09:08→09:19)
[2021-09-26] MEDS ORDERED: NEOSTIGMINE METHYLSULFATE 1 MG/ML 10ML VIAL ONE (09:08)
[2021-09-26] MEDS ORDERED: LIDOCAINE 2% 2 ML VIAL/AMP(20MG/ML) INFIL ONE (09:08)
[2021-09-26] MEDS ORDERED: PHENYLEPHRINE 100MCG/ML 5ML SYR IV PRN (09:15)
[2021-09-26] MEDS ORDERED: ONDANSETRON INJ 2 MG/ML 2 ML VIAL IV PRN (09:15)
[2021-09-26] MEDS ORDERED: fentaNYL citrate 100 MCG/2 ML VIAL IV PRN (09:15)
[2021-09-26] MEDS ORDERED: ATROPINE SULFATE 0.1 MG/ML 10ML SYR IV PRN (09:15)
[2021-09-26] MEDS ORDERED: LABETALOL HCL IV 5 MG/ML 20ML IV PRN (09:15)
[2021-09-26] MEDS ORDERED: ePHEDrine sulfate 50 MG/ML AMP IV PRN (09:15)
[2021-09-26] MEDS ORDERED: MEPERIDINE HCL 25 MG/ML CARP/VIAL IV PRN (09:15)
[2021-09-26] MEDS ORDERED: HYDROmorphone INJ 1 MG/ML SYRINGE IV PRN (09:15)
--- NOTE | 2021-09-26 09:43 | History & Physical Bridge Note ---
Date of Service September 26, 2021 History & Physical Bridge Note I have examined the patient, reviewed the History & Physical and in the interval since the performance of the History & Physical I have noted the following changes of clinical significance: no changes noted Supervising Physician Co-Signing Physician Notes Resident Physician Supervision Note: I independently interviewed and examined the patient and verified the zhu histo ry and physical, reviewed labs and image studies and agree with resident Dr. Alvarado findings and care plan.
[2021-09-26] MEDS ORDERED: LIDOCAINE 1% LOCAL 20 ML VIAL ONE (10:02)
[2021-09-26] MEDS ORDERED: BUPIVACAINE 0.5 % 5 MG/1 ML MPF 30ML VIAL ONE (10:02)
[2021-09-26] MEDS ORDERED: BACITRACIN OINT 15 GM TUBE ONE (10:02)
--- NOTE | 2021-09-26 10:02 | Anesthesiology Consultation ---
Date of Service September 26, 2021 Assessment & Plan (1) Encounter for pre-operative examination: Chart Review Chart Review: Acceptable Risk for Surgery and Patient NOT seen in Pre Admission Testing Consults Requested none History Surgery Operation Date: 09/24/21 08:50 Proposed Procedures p Endoscopic Ultrasonography Upper - Petartatiana Bowles s Endoscopic Retrograde Cholangiopancreatogram - Petartatiana BowlesDO Operation Date: 09/25/21 08:20 Proposed Procedures p Endoscopic Ultrasonography Upper - Petartatiana Bowles DO s Endoscopic Retrograde Cholangiopancreato - Petartatiana Bowles DO Operation Date: 09/25/21 10:55 Proposed Procedures p Laparoscopic Cholecystectomy - Zahira Vasques MD Operation Date: 09/26/21 10:40 Proposed Procedures p Laparoscopic Cholecystectomy - Zahira Vasques MD Height/Weight Height: 5 ft 7 in Weight: 93.7 kg Allergies Allergy/AdvReac Type Severity Reaction Status Date / Time No Known Allergies Allergy Verified 09/21/21 17:20 Medications Home Medications Medication Instructions Recorded Confirmed Last Taken lisinopril 5 mg tablet 5 mg PO QAM 09/21/21 09/21/21 09/21/21 omeprazole 20 mg capsule,delayed 20 mg PO DAILY PRN 09/21/21 09/21/21 09/19/21 release Active Medications Generic Name Dose Route Start Last Admin Trade Name Freq PRN Reason Stop Dose Admin Famotidine 20 mg/ Syringe 5 mls @ 2.5 mls/min 09/22/21 00:00 09/26/21 00:11 IV 10/22/21 00:00 2.5 mls/min Q12H AGUS Administration Piperacillin Sod/Tazobactam 115 mls @ 28.75 mls/hr 09/22/21 04:00 09/26/21 09:05 Sod 3.375 gm/ Dextrose IV 10/02/21 03:59 Infused Q8H AGUS Infusion Protocol Lactated Ringer's 1,000 mls @ 80 mls/hr 09/21/21 22:51 09/25/21 21:49 Lr IV 10/21/21 22:50 80 mls/hr .[id number] AGUS Administration NPO Date Last Intake of Fluids: 09/25/21 Time Last Intake of Fluids: 23:00 Last Intake of Fluids Comment: chewing tobacco Date Last Intake of Solids: 01/11/22 Time Last Intake of Solids: 23:00 Last Intake of Solids Comment: pt was on full liquid diet prior to NPO; pt had orange ice 20:00 09/25/21 Past Medical History Medical History Elevated systolic blood pressure reading without diagnosis of hypertension Hypokalemia Obesity Prostatitis Solitary pulmonary nodule Urinary hesitancy Past Family History Family History Family/Other No problems noted. Other No pertinent family history Denies family history of Ovarian cancer Prostate cancer Diabetes Myocardial infarction Breast cancer Colorectal cancer Hypertension Past Surgical History Surgical History H/O knee surgery H/O repair of rotator cuff Social History Smoking Status: Never smoker tobacco type: smokeless tobacco Hx Alcohol Use: Yes alcohol intake frequency: holidays/special occasions only Alcohol Intake Frequency Comment: pt states he hasn't drank in over 40years Hx Substance Use: No substance use type: does not use Physical Exam Vital Signs Last Vital Signs Temp 36.1 C L 09/26/21 09:33 Pulse 54 L 09/26/21 09:33 Resp 20 09/26/21 09:33 BP 126/70 09/26/21 09:33 Pulse Ox 96 09/26/21 09:33 Testing Laboratory Results 09/25/21 08:02 09/25/21 08:02 Urine Color Yellow 09/21/21 20:20 Urine Appearance Clear (Clear) 09/21/21 20:20 Urine pH 6.5 (4.5-7.5) 09/21/21 20:20 Ur Specific [place] 1.011 (1.000-1.030) 09/21/21 20:20 Urine Protein Negative (Negative) 09/21/21 20:20 Urine Glucose (UA) Negative (Negative) 09/21/21 20:20 Urine Ketones Negative (Negative) 09/21/21 20:20 Urine Nitrite Negative (Negative) 09/21/21 20:20 Ur Leukocyte Esterase Negative (Negative) 09/21/21 20:20 Electrocardiogram Date: 09/21/21 Findings: + NSR @ (72) and + NSST changes Chest X-Ray Date: 09/21/21 Findings: + NAD
[2021-09-26] MEDS: LACTATED RINGER'S 1,000 ML IV SCH ×2 (10:17→14:38)
[2021-09-26] MEDS ORDERED: ATROPINE SULFATE 1MG/2.5ML SYR ONE (10:35)
[2021-09-26] MEDS ORDERED: LABETALOL HCL IV 5 MG/ML 20ML IV ONE (11:12)
--- NOTE | 2021-09-26 11:24 | Post Operative Brief Note ---
Immediate Post Op Note v1 Date of Surgery September 26, 2021 Pre & Post Diagnosis Operation Date: 09/24/21 08:50 <No data on this case meets the specified criteria> Operation Date: 09/25/21 08:20 Pre-Op Diagnosis: CHOLECYSTITIS Post-Op Diagnosis: cholelithiasis Operation Date: 09/25/21 10:55 <No data on this case meets the specified criteria> Operation Date: 09/26/21 10:40 Pre-Op Diagnosis: acute Cholecystitis, cholelithiasis Post-Op Diagnosis: acute Cholecystitis, cholelithiasis I identified the patient and participated in the time-out.: Yes Procedure Operation Date: 09/24/21 08:50 <No data on this case meets the specified criteria> Operation Date: 09/25/21 08:20 Actual Procedures p Endoscopic Ultrasonography Upper - Keiko Bowles DO Operation Date: 09/25/21 10:55 <No data on this case meets the specified criteria> Operation Date: 09/26/21 10:40 Actual Procedures p Laparoscopic Cholecystectomy(Not Applicable) - Zahira Vasques MD Surgeon Zahira Vasques MD Gear Lapping Machine Operator ANDREA Rushing Estimated Blood Loss 20 Findings Consistent with Post-Op Diagnosis Fluids 700ml Specimens gallbladder Anesthesia Type General Complications none Disposition Accompanied Patient To Recovery: Yes
--- NOTE | 2021-09-26 12:08 | Operative Report (OR) ---
DATE OF PROCEDURE: 09/26/2021 PREOPERATIVE DIAGNOSES: Acute cholecystitis, cholelithiasis. POSTOPERATIVE DIAGNOSES: Acute cholecystitis, cholelithiasis. OPERATION: Laparoscopic cholecystectomy. SURGEON: Zahira Vasques MD. BEE RAISER: Vanessa Jiang PA-C. ANESTHESIA: General. ESTIMATED BLOOD LOSS: About 20 mL. FINDINGS: Significant inflammation and edema on the gallbladder wall, confirmed diagnosis of acute c holecystitis with cholelithiasis. COMPLICATIONS: None. INDICATIONS FOR THE PROCEDURE: This is an 81-year-old gentleman who was admitted to the hospital for acute cholecystitis, cholelithiasis. The patient had an endo ultrasound done yesterday that found t he patient had a gallstone, and I recommended to do laparoscopic cholecystectomy, possible open, poss ible cholangiogram. I did talk to the patient about the benefit, risk, alternate procedure. I indic ated the risks may include, but not limited to, such as bleeding, infection, injury to other organs, incisional hernia, myocardial infarction, DVT, stroke, even . The patient understands and he si gned informed consent and I answered all questions. DETAILS OF PROCEDURE: After we identified the patient and verified the procedure, we brought the pat ient to the OR, put the patient in the supine position on the OR table. The patient received SCD on bilateral legs to prevent DVT. Also, patient received 3.375 grams of Zosyn IV for prophylactic antib iotic. The patient received general anesthesia without difficulty. The abdomen was prepped and drap ed in routine sterile fashion. After timeout, I injected the local anesthesia by using 1% lidocaine mixed with 0.5% Marcaine just above the umbilicus, then I made a small incision just above umbilicus, opened fascia, opened peritoneum. Under direct vision, put a Laura trocar in, connected to CO2 to create pneumoperitoneum, flow rate at 6 liters per minute, pressure not more than 14 mmHg. Once we got a nice pneumoperitoneum, we put a camera in, looked around the abdomen showing normal fin ding on the liver; however, the gallbladder showed significant inflammation and edema around the gall bladder wall confirming the diagnosis of acute cholecystitis. Once we confirmed the diagnosis, we pu t another two 5 mm trocars on the right upper quadrant, one 11 trocar in the epigastric area. Once a ll trocars in, we used the grasper to hold the base of gallbladder, put in the direction to the diaph ragm, another grasper to hold the pouch of gallbladder, put a lateral to explore the triangle of [place] t. The cystic duct was identified and mobilized. I put two 10 mm metal clips on the proximal cystic john t, one on the distal cystic duct, then used a scissor for transection of cystic duct; rechecked, no b ile leak. The cystic artery was identified and mobilized. I put two 10 mm metal clips on the proxim al cystic artery and one on the distal cystic artery, then used a scissor for transection of cystic a rtery; rechecked, no active bleeding. Then, we used the Bovie to take down gallbladder from the live r bed; rechecked, no active bleeding, no bile leak from the liver bed. Then, we removed gallbladder through the catch bag. Then, we reinserted the Laura trocar in, connected to CO2 to create pneumoperitoneum, again looked a round the abdomen, it shows normal finding, no active bleeding, no bile leak from liver bed. Then, w e removed all trocars under direct vision. No active bleeding from the trocar sites. Pneumoperitone um was then released, then I closed the umbilical incision fascial layer by using 0 Vicryl figure-of- eight x2, closed subcutaneous layer by using 2-0 Vicryl interruptedly, closed skin by using 4-0 Vicry l continuous running, closed the epigastric incision fascial layer by using 2-0 Vicryl [id number] t x2, closed subcutaneous layer by using 2-0 Vicryl interruptedly, closed skin by using 4-0 Vicryl in terruptedly, closed another two 5 mm trocar site of skin only by using 4-0 Vicryl. Then, we put the dressing on. The patient tolerated the procedure well. All instrument, needle and sponge counts were correct x2 a t the end of the case. The patient was transferred to recovery room in stable condition. The specim en was sent to pathology. After the procedure, I did talk to the patient and the patient's daughter about the OR finding and the procedure we did, they understand. The nurse first assist, Vanessa, was necessary for this procedure. Her role was to hold the camera, exp osure and retraction. Job ID: [id number]
--- NOTE | 2021-09-26 12:20 | Anesthesiology Progress Note ---
Date of Service September 26, 2021 Anesthesia Post Procedure Vital Signs Vital Signs: Temp Pulse Pulse Resp BP BP Pulse Ox 09/26/21 11:55 67 16 163/82 H 96 09/26/21 11:46 36.2 C L 70 18 181/104 H 93 09/26/21 09:33 36.1 C L 54 L 20 126/70 96 09/26/21 07:44 36.7 C 53 L 18 108/60 91 09/26/21 02:49 36.7 C 51 L 16 105/62 92 09/25/21 22:20 37.1 C 56 L 16 103/61 95 09/25/21 19:21 37.2 C 55 L 18 103/64 93 09/25/21 18:16 37.1 C 48 L 16 118/69 93 09/25/21 17:10 36.6 C 48 L 20 112/65 93 09/25/21 16:05 36.6 C 50 L 16 94/51 L 96 09/25/21 15:40 36.8 C 52 L 16 112/66 92 09/25/21 15:10 36.8 C 51 L 16 119/71 97 09/25/21 14:50 36.4 C L 61 18 105/63 98 09/25/21 14:45 61 18 101/78 98 09/25/21 14:35 68 18 101/78 98 09/25/21 14:25 66 18 99/77 L 94 09/25/21 14:15 36.2 C L 72 20 123/70 98 09/25/21 12:41 36.5 C 58 L 20 148/93 H 98 Transfer of Care Handoff Completed per policy Notes Mental Status: alert / awake / arousable Patient Amnestic to Procedure: Yes Nausea / Vomiting: adequately controlled Pain: adequately controlled Airway Patency, RR, SpO2: stable & adequate BP & HR: stable & adequate Hydration State: stable & adequate Anesthetic Complications: no major complications apparent and Pt Satisfied with anesthetic care Notes: The patient is awake and comfortable.
[2021-09-26] MEDS ORDERED: HYDROmorphone INJ 0.5 MG/0.5 ML SYR IV PRN (12:58)
[2021-09-26] MEDS ORDERED: oxyCODONE/ACETAMINOPHEN 5mg/325mg TAB PO PRN (12:58)
[2021-09-26] MEDS ORDERED: PANTOprazole 40 MG TAB PO PRN (13:00)
[2021-09-26] MEDS: lisinopril 5 MG TAB PO SCH (15:22)
[2021-09-27] MEDS: FAMOTIDINE 20 MG in SYRINGE 3 ML IV SCH (00:39)
[2021-09-27] MEDS: LACTATED RINGER'S 1,000 ML IV SCH ×2 (02:57→15:19)
[2021-09-27] MEDS: PIPERACILLIN/TAZOBACTAM 3.375 GM in DEXTROSE 5% 100 ML IV SCH ×2 (04:43→11:52)
--- NOTE | 2021-09-27 07:17 | Hospitalist Progress Note ---
Date of Service September 27, 2021 Assessment & Plan (1) Abdominal pain: Plan: 81 year old male PMHx elevate systolic BP without dx of HTN, hypokalemia, prostatitis, solitary pulmonary nodules, urinary hesitancy coming in for right upper abdominal pain for one day Acute cholecystitis/Cholelithiasis - s/p Lap dc Presented with abdominal pain with abnormal LFT: - WBC 13.51 upon entering hospital. - US Gallbladder: borderline wall thickening, small amount sludge, no gallstones - GI consulted. -MRCP negative. -EUS showed numerous stones in gallbladder, common bile duct w/o stones or dilation, addie-ampullary diverticulum. -Lap dc yesterday with Dr. Vasques without complication. - Received 2g cefoxetime in ED, switched to Pip/tazo 3.375 Q8h (Day 6). - Cont to monitor GERD: - Cont. home omeprazole, famotidine Q12. HTN: - BP fluctuating 110-160s. Elevation likely from stress. - continue to hold lisinopril perioperatively. - Monitor vitals. Nicontine use - Chews - Patient denied need for nicotine patch. DVT Prophylaxis: SCDs Code status: Full code. Dispo: Med/surg (2) Abnormal gallbladder ultrasound: Plan: (3) Abnormal LFTs: (4) GERD without esophagitis: (5) Hypertension: Admission and Anticipated Discharge Date Admission Date: September 21, 2021 Subjective Patient seen at the bedside this morning. Results & Data Results & Data ([facility]) Vital Signs (Past 12 Hours) Vital Signs Temp Pulse Pulse Resp BP BP Pulse Ox 09/27/21 02:56 36.6 C 54 L 18 111/69 93 09/26/21 22:54 37.0 C 62 18 108/64 90 09/26/21 19:43 37.1 C 65 16 113/61 90
[2021-09-27 08:14] LABS: Basophils # (auto) 0.02 K/uL (0-0.2); Basophils % (auto) 0.1 %; Eosinophils # (auto) 0.04 K/uL (0-0.5); Eosinophils % (auto) 0.3 %; Hematocrit (blood only) 38.3 % (42-52); Hemoglobin 12.2 g/dL (14.0-18.0); Immature Granulocytes # (auto) 0.05 K/uL (0.00-0.02); Immature Granulocytes % (auto) 0.4 %; Lymphocytes # (auto) 1.59 K/uL (1.2-3.4); Lymphocytes % (auto) 11.3 %; Mean Corpuscular Hemoglobin 31.1 pg (25-34); Mean Corpuscular Hgb Conc 31.9 g/dL (32-36); Mean Corpuscular Volume 97.7 fL (80-100); Monocytes % (auto) 11.4 %; Neutrophils # (auto) 10.71 K/uL (1.4-6.5); Neutrophils % (auto) 76.5 %; Platelet Count 285 K/uL (130-400); RDW Coefficient of Variation 15.2 % (11.5-14.5); RDW Standard Deviation 54.6 fL (36.4-46.3); Red Blood Count 3.92 M/uL (4.7-6.1); White Blood Count 14.01 K/uL (4.8-10.8)
[2021-09-27] MEDS: lisinopril 5 MG TAB PO SCH (08:25)
[2021-09-27 08:39] LABS: Albumin Globulin Ratio 1.2 (0.9-2); Albumin Level 3.2 gm/dl (3.4-5.0); BUN Creatinine Ratio 8.3 (10-20); Bilirubin,Total 1.3 mg/dl (0.2-1.0); Creatinine Clr Calc Pharmacy 52.7 ml/min; Est GFR (African American) 65.3 ml/min; Est GFR (Non-African American) 56.4 ml/min; Globulin 2.7 gm/dl (2.5-4.0); Potassium 3.5 mmol/L (3.5-5.1); Total Protein 5.9 gm/dl (6.0-8.3)
[2021-09-27] MEDS ORDERED: FAMOTIDINE 20 MG TAB PO SCH (10:00)
--- NOTE | 2021-09-27 13:32 | Surgery Progress Note ---
Date of Service September 27, 2021 Assessment & Plan (1) Abnormal gallbladder ultrasound: (2) Abnormal LFTs: Plan: POD # 1 s/p laparoscopic cholecystectomy , POD # 2 EUS -afebrile, vss - Leukocytosis of 14k today (7k on 09/25/2021) likely postsurgical - t. bili is up to 1.3 today (0.9 on 09/25/2021) - LFTS normalized - Alk phos normalized - minimal postop pain Plan: can advance diet as tolerated, would suggest low fat diet given elevated bili today okay from surgical standpoint for discharge would suggest repeat labs in a few days given elevated of wbc and t. bili f/u surgical office in 1-2 weeks discharge instructions reviewed and provided Dr. Vasques has seen patient and present during my examination and agrees with above. Admission and Anticipated Discharge Date Admission Date: September 21, 2021 Subjective feeling good minimal abdominal pain, soreness at incisions no n,v doesn't like the liquid diet wants to go home Physical Exam Constitutional: well developed and well nourished; no acute distress and not ill appearing Neck: normal visual inspection and trachea midline Respiratory: normal respiratory effort; no respiratory distress, no labored breathing and no retractions Gastrointestinal (Abdomen): Inspection/Auscultation: abdomen normal to inspection and + abdominal surgical incision (covered with dry dressing ,clean ); abdomen not distended Percussion/Palpation: abdomen soft; abdomen nontender, no guarding and abdomen not rigid Skin: no rashes, warm and dry no jaundice Psychiatric: Orientation: alert and oriented x 3 Results & Data ([facility]) Vital Signs (Past 12 Hours) Vital Signs Temp Pulse Resp BP Pulse Ox 09/27/21 11:42 37.1 C 64 16 116/64 92 09/27/21 07:27 36.5 C 57 L 16 150/71 H 96 09/27/21 02:56 36.6 C 54 L 18 111/69 93 Laboratory Results 09/27/21 09/27/21 Range/Units 07:43 07:43 WBC 14.01 H (4.8-10.8) K/uL RBC 3.92 L (4.7-6.1) M/uL Hgb 12.2 L (14.0-18.0) g/dL Hct 38.3 L (42-52) % MCV 97.7 (80-100) fL MCH 31.1 (25-34) pg MCHC 31.9 L (32-36) g/dL RDW Std Deviation 54.6 H (36.4-46.3) fL RDW Coeff of Arturo 15.2 H (11.5-14.5) % Plt Count 285 (130-400) K/uL MPV 10.0 (7.4-10.4) fL Immature Gran % (Auto) 0.4 % Neut % (Auto) 76.5 % Lymph % (Auto) 11.3 % [place] % (Auto) 11.4 % Eos % (Auto) 0.3 % Baso % (Auto) 0.1 % Neut # (Auto) 10.71 H (1.4-6.5) K/uL Lymph # (Auto) 1.59 (1.2-3.4) K/uL [place] # (Auto) 1.60 H (0.11-0.59) K/uL Eos # (Auto) 0.04 (0-0.5) K/uL Baso # (Auto) 0.02 (0-0.2) K/uL Immature Gran # (Auto) 0.05 H (0.00-0.02) K/uL Sodium 140 (136-145) mmol/L Potassium 3.5 (3.5-5.1) mmol/L Chloride 105 (98-107) mmol/L Carbon Dioxide 27 (21-32) mmol/L Anion Gap 8 (3-11) BUN 10 (6-23) mg/dl Creatinine 1.20 (0.6-1.4) mg/dl Est Cr Clr Drug Dosing 52.7 ml/min Est GFR ( Amer) 65.3 ml/min Est GFR (Non-Af Amer) 56.4 ml/min BUN/Creatinine Ratio 8.3 L (10-20) Glucose 114 H (70-99) mg/dl Calcium 8.0 L (8.5-10.1) mg/dl Total Bilirubin 1.3 H (0.2-1.0) mg/dl AST 20 (13-39) U/L ALT 53 H (7-52) U/L Alkaline Phosphatase 104 (34-104) U/L Total Protein 5.9 L (6.0-8.3) gm/dl Albumin 3.2 L (3.4-5.0) gm/dl Globulin 2.7 (2.5-4.0) gm/dl Albumin/Globulin Ratio 1.2 (0.9-2)
--- NOTE | 2021-09-27 15:53 | Discharge Summary ---
Date of Service September 27, 2021 Admission HPI Per Admitting Provider Chief Complaint: The patient presents to the emergency department with complaint of right upper quadrant pain that began after eating have a hoagie this afternoon. He had a similar episode of pain about 2 weeks ago, and had a temperature for brief interval afterwards, that his stayed home from work for to help take care of him. Primary Care Provider: DENZEL Cooper The patient is a 81-year-old male with a past medical history including gait disturbance, insomnia, urinary urgency, prostatitis, BPH with LUTS, impaired fasting glucose, hypertension, allergic rhinitis, anxiety with depression, ast hma, GERD vmi-[id number]-[id number] bowel syndrome. He presents with symptoms as noted above. Admission Exam Per Admitting Provider The patient is awake, alert and oriented 3, well developed and well nourished, normocephalic and atraumatic, lying in bed and in no acute distress. HEENT--PERRL, EOMI, mucous membranes and oropharynx mildly dry. Neck--supple. No JVD. No bruits. Thyroid normal, trachea midline, no adenopathy. Heart--normal S1 and S2. No murmurs, rubs or gallops. Lungs--clear bilaterally, no respiratory distress, no accessory muscle use. Abdomen--normal bowel sounds and soft. Nontender. Nondistended, obese Extremities--no cyanosis or clubbing. No edema. Dermatologic--normal skin turgor, normal color, no abnormal lymph nodes, no rash. Neurologic--cranial nerves II through XII grossly intact. Rheumatologic--limited exam Psychiatric--normal affect. Principal Diagnosis Cholecystitis Discharge Exam Constitutional WD/WN, vitals as above Eyes PERRL, conjunctivae normal, anicteric sclerae Respiratory normal respiratory effort, lungs clear to auscultation Cardiovascular RRR, no murmur, no edema Gastrointestinal (Abdomen) normal bowel sounds, soft, nontender, no hepatosplenomegaly Wound dressings without leakage or erythema surrounding the area. Non distended, soft abdomen. Discharge Data Allergies Allergy/AdvReac Type Severity Reaction Status Date / Time No Known Allergies Allergy Verified 09/21/21 17:20 Consultations 09/21/21 19:21 ED Decision to Admit Stat 09/22/21 10:04 Consult General Surgery Routine 09/22/21 12:02 Consult Gastroenterology Routine Procedures Performed Operation Date: 09/24/21 08:50 <No data on this case meets the specified criteria> Operation Date: 09/25/21 08:20 Actual Procedures p Endoscopic Ultrasonography Upper - Keiko Bowles DO Operation Date: 09/25/21 10:55 <No data on this case meets the specified criteria> Operation Date: 09/26/21 10:40 Actual Procedures p Laparoscopic Cholecystectomy(Not Applicable) - Zahira Vasques MD Ordered Studies 09/21/21 16:06 US gallbladder Stat 09/22/21 14:22 MR MRCP Routine 09/24/21 13:53 US upper EUS PACS images Routine 09/25/21 13:32 US upper EUS PACS images Routine Hospital Course (1) Abdominal pain: 81 year old male PMHx elevate systolic BP without dx of HTN, hypokalemia, prostatitis, solitary pulmonary nodules, urinary hesitancy coming in for right upper abdominal pain for one day Acute cholecystitis/Cholelithiasis - s/p Lap dc Presented with abdominal pain with abnormal LFT: - WBC 13.51 upon entering hospital. - US Gallbladder: borderline wall thickening, small amount sludge, no gallstones - GI consulted. -MRCP negative. -EUS showed numerous stones in gallbladder, common bile duct w/o stones or dilation, addie-ampullary diverticulum. - Lap dc 09/26/[address] Vasques without complication. - Received 2g cefoxetime in ED, switched to and received 6 days of Pip/tazo 3.375 Q8h. - Patient tolerating food and ambulating well day after surgery. - WBC count 14.01 most likey 2/2 surgery. Total bilirubin 1.3. Ordered CBC and CMP for patient to get in 3 days. - Prescribed patient Cipro 500mg BID and Metronidazole 500mg TID for 5 days o utpatient per surgery recommendations. - Told patient to follow up with PCP within the next week and surgery within net few weeks. HTN: - BP fluctuating 110-160s. Elevation likely from stress. - Held BP medications while in hospital. Continued upon discharge. (2) Abnormal gallbladder ultrasound: (3) Abnormal LFTs: (4) GERD without esophagitis: (5) Hypertension: Total Time Total Time Spent Total Time Spent (In Minutes): Please see attending attestation. Discharge Plan Discharge Items Patient Disposition: Home - Self-Care Reason For Visit: CHOLECYSTITIS Discharge Diagnosis: Cholecystitis Activity: Per Instructions section Non-emergency contact: Primary Care Provider and Surgeon Call non-emergency contact if: your symptoms worsen, your pain is worsening, your temperature is above 101 and your wound has increased drainage Follow-up/Referrals: Johana Jordan CRNP [Primary Care Provider] - 10/04/21 10:30 am Zahira Vasques MD [Physician] - 10/09/21 1:30 pm Diet: Regular Addtl Attending Provider Instructions: A discharge summary will be sent to your primary care physician to ensure continuity of care. You came in to the hospital with sharp right abdominal pain and nausea and vomiting after eating a meal. You had a procedure, known as endoscopy with ultrasound, to determine if the cause of this pain was coming from your gallbladder. The procedure showed you had several gallstones in your gallbladder. Since gallstones may be a potential cause of the pain you were having the surgeon felt it was necessary to remove your gallbladder to prevent further pain or risk of infection. You were taken to the operating room and had a laparoscopic cholecystectomy performed. You tolerated this procedure well. A lab value called bilirubin was mildly elevated after your surgery. This will need follow up blood work that you will be given a script for to take to any laboratory. Please go to the lab you usually go to for blood work. Please follow up with your primary care doctor within the next week to go over those laboratory results and follow up from the hospital. You will be taking two antibiotics over the next 5 days. This is to help prevent any infection post-operatively. These antibiotics may cause diarrhea or abdominal cramping. If you are experiencing heavy diarrhea please remember to keep hydrated and contact your primary care office for further advice. Follow-up: * Please get blood work at a laboratory within the next 3-4 days with the prescription you were given. This blood work will be to check on your blood count, liver function, and electrolytes. The name of the blood work you will be getting is complete blood count and complete metabolic panel. * You should be seen by your primary physician within the next week. * Please follow up with the surgeon in the next 1-2 weeks. Medications: Your medication list has been reviewed and reconciled upon discharge to ensure accuracy and continuity of care. An updated list of all your medications is included with your hospital discharge paperwork. Please review this list closely, and make note of any changes. * You will be receiving a prescription for an antibiotic called Cipro. You will take one Cipro every 12 hours for the next 5 days. * You will be receiving another antibiotic called Metronidazole. You will take this medication 3 times a day for the next 5 days. You can take it at breakfast, lunch, and dinner. Take your medications as instructed; do not skip a dose of your medicines. Make sure all of your doctors know every medicine you are taking (including dtom-vts-ljsdipa medicines, vitamins, and supplements). let your primary care provider know before taking any new medicines because some of these may interact with your current medications, or may make your symptoms worse. CONTACT YOUR PRIMARY CARE PROVIDER if you experience any of the following: * Fevers or shaking chills * Shortness of breath not relieved by inhalers, fainting * Sudden abdominal distension not relieved by catheterization. * Difficulty following your treatment plan, or difficulty taking medications CALL 911 OR GO TO THE EMERGENCY DEPARTMENT if you experience any of the following: * Sudden, severe abdominal pain or nausea/vomiting * Severe chest pain, or chest pain that radiates (moves) to your jaw or arm * Sudden, severe shortness of breath or difficulty breathing It was was our pleasure taking care of you here at [facility] . Thank you for allowing us to participate in your care. Addtl Handling Tech Provider Instructions: Post-Surgical ~Discharge Instructions Activity Recommendations: - lifting limitation: (25 pounds for 4 weeks), - exercise/sex/sports limit: (nonstrenuous for 2 weeks), - driving or machine use limit: (none for 1 week or until pain free), - Shower/bathe limit: (may shower beginning Friday) Diet: - Low fat diet recommended for 2-4 weeks SPECIAL CARE INSTRUCTIONS: - May shower on Friday, sponge bath and wash hair in meantime. On Friday, remove outer dressings and shower. Let water run over area and pat dry. - Leave steri strips on for one week and then remove, they may fall off on their own that is okay. - Call the surgeon's office with any questions or concerns - - (ex. temperature higher than 101 degrees F, excessive bleeding or pain). MEDICATIONS: - Resume previous medications unless instructed otherwise by your surgeon. - May alternate extra strength Tylenol and Ibuprofen as needed for mild to moderate pain -650 mg Tylenol every 6 hours as needed - Ibuprofen 600 mg every 6 hours as needed ( take with food and limit duration of continuous use for no more than 3 days) FOLLOW UP VISIT: - If not already scheduled, please call the office to schedule a one-two week follow-up appointment with either Dr. Vasques or Vanessa Jiang PA-C Office number Pending Studies at Discharge: Yes (gallbladder pathology, will be reviewed at follow-up visit) Stand-Alone Forms: My [facility] [email or web address], Smoking Cessation Medications and DC Order Prescriptions: New ciprofloxacin HCl [Cipro] 500 mg tablet 500 mg PO BID 5 Days Qty: 10 RF: 0 metronidazole 500 mg tablet 500 mg PO Q8H 5 Days Qty: 15 RF: 0 Continued omeprazole 20 mg capsule,delayed release(DR/EC) 20 mg PO DAILY PRN (Reason: Acid Reflux) RF: 0 lisinopril 5 mg tablet 5 mg PO QAM RF: 0 Discharge Orders: Discharge Order (Routine); Ordered 09/27/21 Ordered By: Man Gongora/Other Patient Handouts: Quit-Smoking Tools Help for ..., Planning to Quit Smoking, Smoking Get Help for Quitting Admission Data Admit Date/Time: 09/21/21 21:21 Attending Provider: Abena Zambrano Admit Provider: Nayan Garcia Primary Care Provider: Johana Jordan Other Providers: Nayan Garcia ; Sera Bowles ; Richard Pryor Other Interventions: Discharge Summary Assessment (RN) Last Done: 09/27/21 15:35 Supervising Physician Co-Signing Physician Notes Resident Physician Supervision Note: I independently interviewed and examined the patient and verified the zhu history and physical, reviewed labs and image studies and agree with resident Dr. Alvarado findings and care plan. Resident Activity Tracking Resident Involvement: Resident Care Provided Care Provided: Adult Hospital Medicine
== END 2021-09-27 16:32 | disposition home or self-care (01) | DRG 418 ==
LOC: ED 15:46 → 3W 21:21 → SUATTDRO 21:21 → 3W 22:09

== ENCOUNTER 2025-04-22 13:21 | Observation (INO) ==
[2025-04-22] MEDS: SODIUM CHLORIDE 0.9% 1,000 ML IV ONE (13:37)
[2025-04-22 13:55] LABS: Hematocrit (blood only) 39.5 % (42.0-52.0); Hemoglobin 13.0 g/dl (14.0-18.0); Immature Granulocytes # (auto) 0.05 K/uL (0.01-0.20); Immature Granulocytes % (auto) 0.5 %; Mean Corpuscular Hemoglobin 30.7 pg (25.0-34.0); Mean Corpuscular Volume 93.2 fL (80.0-100.0); Platelet Count 285 K/uL (130-400); RDW Standard Deviation 49.9 fL (36.4-46.3); Red Blood Count 4.24 M/uL (4.70-6.10); White Blood Count 9.32 K/ul (4.8-10.8)
--- NOTE | 2025-04-22 14:02 | XRay Report ---
XR chest 1V portable HISTORY: 84 years-old Male Chest pain, nonspecific COMPARISON: Chest and rib radiographs 07/25/2023 TECHNIQUE: AP view the chest FINDINGS: Cardiac silhouette is mildly enlarged. Pulmonary vascular congestion. Small pleural effusions with metz bsegmental bibasilar densities. No pneumothorax. Bones appear grossly intact. IMPRESSION: 1. Cardiomegaly with pulmonary vascular congestion. 2. Small pleural effusions with bibasilar opacities favoring atelectasis. ACT 112: Negative or not required by law. The above report was generated using voice recognition software. It may contain grammatical, syntax o r spelling errors. Electronically signed by: Baljit Mcfarlane M.D. 04/22/2025 2:01 PM
[2025-04-22] MEDS: OPTIRAY 320 100ml IV ONE (14:05)
[2025-04-22 14:19] LABS: Alanine Aminotransferase 9.0 U/L (7-52); Albumin Globulin Ratio 1.1 (0.9-2); Alkaline Phosphatase 132.0 U/L (34-104); Anion Gap 7.0 (3-11); Bilirubin,Total 0.5 mg/dl (0.2-1.0); Blood Urea Nitrogen 9.0 mg/dl (6-23); Calcium 8.7 mg/dl (8.6-10.3); Carbon Dioxide 28.0 mmol/L (21-32); Chloride 108.0 mmol/L (98-107); Creatinine Clr Calc Pharmacy 51.8 ml/min; Globulin 2.9 gm/dl (2.5-4.0); Glucose 106.0 mg/dl (70-99(Fasting)); Lipase 51.0 U/L (11-82); Potassium 3.0 mmol/L (3.5-5.1); Sodium 143.0 mmol/L (136-145); Total Protein 6.1 gm/dl (6.0-8.3)
--- NOTE | 2025-04-22 14:39 | Emergency Department Note ---
Impression & Plan Chest pain, Shortness of breath, Pancreatitis, Pleural effusion ED Provider Note NAME: MAXIME MICHAUD AGE: 84 SEX: M : 1940 ARRIVES VIA: Walk-In INFORMANT: Patient ED PROVIDER(S): Ken Lutz DO CHIEF COMPLAINT: chest pain, shortness of breath HPI: Patient is a 84-year-old male who presents to the ER brought in by family members with a history of cognitive impairment, lower back pain, C. difficile, hypertension and IBS for symptoms that started while he was out working in the field. He started having some chest pain associated with shortness of breath and he felt very hot and flushed. He came in side to the house. He had some abdominal discomfort as well. Following this his symptoms resolved. He did feel lightheaded with this. Currently has no chest pain. Denies any dysuria, urgency, or frequency. No other exacerbating or remitting factors. ADDITIONAL HISTORY OBTAINED: Per HPI Chronic Medical/Social Conditions Affecting Care: Per HPI PAST MEDICAL HISTORY:See Below PAST SURGICAL HISTORY:See Below FAMILY HISTORY:See Below SOCIAL HISTORY:See Below HOME MEDICATIONS:See Below ALLERGIES:See Below VITALS:See Below PHYSICAL EXAMINATION: GENERAL: Sitting up in bed, alert, chronically ill-appearing, disheveled EYE EXAM: normal conjunctiva. OROPHARYNX: no exudate, no erythema, lips, buccal mucosa, and tongue normal and mucous membranes are moist NECK: supple, no nuchal rigidity, no adenopathy, non-tender LUNGS: Clear to auscultation. Normal chest wall mechanics HEART: no murmurs, S1 normal and S2 normal ABDOMEN: abdomen soft, non-tender, normo-active bowel sounds, no masses, no rebound or guarding. UPPER EXTREMITIES: upper extremities are grossly normal. LOWER EXTREMITIES: No pitting edema. Calves are equal bilaterally NEURO EXAM: Normal sensorium, cranial nerves II-XII grossly intact, normal speech, no gross weakness of arms, no gross weakness of legs. MEDICAL DECISION MAKING: Patient is an 84-year-old male who presents ER for the above-stated complaint. IV was established and blood work was obtained. Labs show no significant leukocytosis or anemia. BMP with a hypokalemia at 3.0. LFTs and bilirubin were unremarkable. Glucose of 106. Troponin was negative. Lipase was normal. Chest x-ray did not suggest pleural effusions. CT abdomen pelvis shows questionable pancreatitis. Patient was given IV fluids. Patient did have chest pain while exerting himself and that resolved. With worsening shortness of breath and new pleural effusions in the setting of chest pain did discuss case with the hospitalist for further evaluation management treatment. Consults/Care Managements Discussions: Per [facility] Triage Nursing notes reviewed. Limited review of prior medical records performed Vital Signs: reviewed and remarkable for no significant abnormalities Differential diagnosis: Cardiac ischemia, aortic dissection, pulmonary embolism, pneumothorax, pneumonia, pericarditis, myocarditis, esophageal rupture, GERD, cholecystitis, pancreatitis, musculoskeletal, as well as other pathologies. ER treatment provided: See below Diagnostics interpreted by me include EKG and cardiac monitoring as listed below: -Cardiac Monitoring: An order was placed for continuous cardiac monitoring. The monitor shows a rate of 70 with sinus rhythm. -ECG: Sinus rate of 75 Normal axis Irregular size P waves QTc 457 -Laboratory studies:Interpreted by me as stated above in MDM and shown below. Imaging studies: Xrays: As interpreted by me: Portable AP upright 1 view of the chest shows pleural effusions CTs show: CT abdomen pelvis shows questionable pancreatitis Procedures:none Critical Care: None Past Med/Surg History Problem List (Updated 04/22/25 @ 15:35 by Ken Lutz DO) Pleural effusion (Acute) Pancreatitis (Acute) Shortness of breath (Acute) Chest pain (Acute) Hypokalemia (Acute) Low back pain Hip pain, right Mild cognitive impairment Hypertension Obesity Gait disturbance Insomnia BPH (benign prostatic hyperplasia) (Chronic) Impaired fasting glucose (Chronic) Anxiety (Acute) Asthma (Chronic) Depression (Chronic) GERD without esophagitis (Chronic) Irritable bowel syndrome (Acute) Medical History Cholecystitis Transaminitis Near syncope Epigastric abdominal pain Abnormal gallbladder ultrasound Abnormal LFTs Abdominal pain Prostatitis Urinary hesitancy Hypokalemia Elevated systolic blood pressure reading without diagnosis of hypertension Solitary pulmonary nodule Surgical History S/P laparoscopic cholecystectomy H/O repair of rotator cuff H/O knee surgery Family History Family/Other No problems noted. Other No pertinent family history Denies family history of Ovarian cancer Prostate cancer Diabetes Myocardial infarction Breast cancer Colorectal cancer Hypertension Social History Smoking Status: Current every day smoker Tobacco Type: Smokeless Tobacco (Dip or Chew) Age Started Using Tobacco: 17; Age Quit Using Tobacco: 30; packs per day: 0.2; Second Hand Exposure: No; Do You Dip or Chew Tobacco: Yes; Hx Alcohol Use: No Hx Substance Use: No Preferred Language: Icelandic Communication Ability: Effective Visual Impairment: No Limitations Hearing Ability: Hard of Hearing Supervisor Felting Required: No Beliefs That Will Affect Care: None marital status: Current Living Situation: Alone Current Living Situation Comment: pt states his daughter jessica lives nearby and is able to help care for him current occupational status: retired How many Children do You have: 2 Feels Safe at Home: Yes Childhood Exposure to Second-Hand Smoke: Yes Diet: regular caffeine: Yes (soda) during the past year weight has: remained stable Dental Care, Regularly: No Physical Activity Frequency: Does not Exercise Seatbelt Use: never Sunscreen Use: No Do you think of yourself as: straight/heterosexual Sexual Activity: has been sexually active, but not for at least 12 months Gender Identity: Male Assistive Devices: None Allergies Allergies Allergy/AdvReac Type Severity Reaction Status Date / Time amoxicillin [From Augmentin] AdvReac Intermediate Diarrhea Verified 04/22/25 15:04 clavulanic acid AdvReac Intermediate Diarrhea Verified 04/22/25 15:04 [From Augmentin] doxycycline AdvReac Intermediate GI SYMPTOMS Verified 04/22/25 15:04 Home Meds Previous Rx's Medication Instructions Recorded celecoxib 200 mg capsule (Celebrex) 200 mg PO BID PRN pain #60 caps 11/19/24 diclofenac sodium 75 mg 75 mg PO BID PRN pain #30 tabs 11/24/24 tablet,delayed release lisinopril 5 mg tablet 5 mg PO QAM #90 tabs 12/24/24 tamsulosin 0.4 mg capsule 0.4 mg PO DAILY #90 caps 01/07/25 ciprofloxacin HCl 500 mg tablet 500 mg PO BID 5 days #10 tabs 04/18/25 Results & Data (ED) Vital Signs Vital Signs - 24 hr 04/22/25 13:31 04/22/25 13:35 04/22/25 13:46 Temperature 36.8 C Temperature Source Oral Pulse Rate 75 74 Respiratory Rate 18 Respiratory Effort / Characteristics Non-Labored Spontaneous Respiratory Depth Normal Respiratory Pattern Regular Blood Pressure 128/88 Blood Pressure Mean 101 Pulse Oximetry 96 95 Oxygen Delivery Method Room Air Room Air Sepsis Recent Fever Within 48 Hours No Sepsis New/Unexplained Change in Mental Status N/A Sepsis Action Taken by Nursing No Action Required Laboratory Data 04/22/25 13:38 04/22/25 13:38 Lab Results 04/22/25 04/22/25 Range/Units 13:38 13:43 WBC 9.32 (4.8-10.8) K/ul RBC 4.24 L (4.70-6.10) M/uL Hgb 13.0 L (14.0-18.0) g/dl POC Hgb 13.6 L (14.0-18.0) g/dl Hct 39.5 L (42.0-52.0) % POC Hct 40 L (42-52) % MCV 93.2 (80.0-100.0) fL MCH 30.7 (25.0-34.0) pg MCHC 32.9 (32.0-36.0) g/dL RDW Std Deviation 49.9 H (36.4-46.3) fL RDW Coeff of Arturo 14.6 H (11.5-14.5) % Plt Count 285 (130-400) K/uL MPV 8.8 L (9.4-12.4) fL Immature Gran % (Auto) 0.5 % Neut % (Auto) 71.9 % Lymph % (Auto) 15.5 % Bates % (Auto) 9.7 % Eos % (Auto) 2.1 % Baso % (Auto) 0.3 % Neut # (Auto) 6.70 H (1.40-6.50) K/uL Lymph # (Auto) 1.44 (1.20-3.40) K/uL Bates # (Auto) 0.90 H (0.11-0.59) K/uL Eos # (Auto) 0.20 (0.00-0.50) K/uL Baso # (Auto) 0.03 (0.00-0.20) K/uL Immature Gran # (Auto) 0.05 (0.01-0.20) K/uL POC Sodium 144 (135-144) mmol/L Sodium 143 (136-145) mmol/L POC Potassium 2.9 L (3.3-5.0) mmol/L Potassium 3.0 L (3.5-5.1) mmol/L POC Chloride 104 (101-112) mmol/L Chloride 108 H (98-107) mmol/L Carbon Dioxide 28 (21-32) mmol/L POC Total CO2 24 (24-31) mmol/L Anion Gap 7 (3-11) POC Anion Gap 19.0 (16-25) mmol/L POC BUN 8 (7-18) mg/dl BUN 9 (6-23) mg/dl Creatinine 1.20 (0.6-1.4) mg/dl POC Creatinine 1.2 (0.6-1.3) mg/dl Est Cr Clr Drug Dosing 51.8 ml/min eGFR 59.63 BUN/Creatinine Ratio 7.5 L (10-20) Glucose 106 H (70-99(Fasting)) mg/dl POC Glucose (other) 104 H (70-99) mg/dl Calcium 8.7 (8.6-10.3) mg/dl POC Ioniz Calcium Valeriy 1.15 (1.12-1.32) mmol/l Total Bilirubin 0.5 (0.2-1.0) mg/dl AST 15 (13-39) U/L ALT 9 (7-52) U/L Alkaline Phosphatase 132 H (34-104) U/L Troponin I High Sens 11.7 (0-20) pg/ml Total Protein 6.1 (6.0-8.3) gm/dl Albumin 3.2 L (3.4-5.0) gm/dl Globulin 2.9 (2.5-4.0) gm/dl Albumin/Globulin Ratio 1.1 (0.9-2) Lipase 51 (11-82) U/L Administered Medications Discontinued Medications Aspirin (Aspirin Chew 324 Mg) 324 mg PO NOW STA Stop: 04/22/25 14:46 Last Admin: 04/22/25 15:09 Dose: 324 mg Documented By: BS Sodium Chloride (Nss) 1,000 mls @ 999 mls/hr IV .Q1H1M ONE Stop: 04/22/25 14:28 Last Admin: 04/22/25 13:37 Dose: 999 mls/hr Documented By: SAUNDRA Ioversol (Optiray 320 100ml) 94 ml IV ONCE ONE Stop: 04/22/25 14:06 Last Admin: 04/22/25 14:05 Dose: 94 ml Documented By: MORAIMA Potassium Chloride (Potassium Chloride 10 Meq Tabcr) 40 meq PO NOW STA Stop: 04/22/25 14:55 Last Admin: 04/22/25 15:09 Dose: 40 meq Documented By: HIEU Imaging Data Radiologist's Impression: Abdomen/Pelvis CT 04/22/25 13:28 CT SCAN OF THE ABDOMEN AND PELVIS WITH IV CONTRAST CLINICAL HISTORY: Abdominal pain. COMPARISON STUDY: CT of the abdomen and pelvis November 21, 2021. KUB October 26, 2024. TECHNIQUE: Following the IV administration of 94 cc of Optiray 320, CT scan of the abdomen and pelvis is performed from the lung bases to the proximal femora. Images are reviewed in the axial, sagittal, and coronal planes. IV contrast was administered without complication. A dose lowering technique was utilized adhering to the principles of ALARA. CT DOSE: 1471.61 mGy.cm FINDINGS: No pneumatosis, free air or portal venous gas is present. There is hepatic steatosis. There is no biliary ductal dilatation status post cholecystectomy. There is subtle stranding adjacent to the pancreatic tail. There is no peripancreatic fluid collection. There is no pancreatic ductal dilatation. Spleen and adrenal glands are unremarkable. There is marked bilateral renal cortical thinning. There is no hydronephrosis. A 4.3 cm left renal cyst is incidentally noted. There is an 8 mm left lower pole renal calculus. No ureteral calculi. Mild bladder wall thickening with minimal adjacent stranding is unchanged. The bladder wall is slightly trabeculated. The appendix is normal. There is no evidence for a bowel obstruction. There is colonic diverticulosis. There is no lymphadenopathy. No fluid collections are present. IMPRESSION: 1. Subtle stranding adjacent to the pancreatic tail suggestive of acute pancreatitis. No peripancreatic fluid collection. 2. No biliary ductal dilatation status post cholecystectomy. 3. Left nephrolithiasis. No ureteral calculi. 4. Colonic diverticulosis. 5. No bowel obstruction. ACT 112: Negative or not required by law. Electronically signed by: Kelby Chamberlain M.D. 04/22/2025 3:04 PM Chest X-Ray 04/22/25 13:28 XR chest 1V portable HISTORY: 84 years-old Male Chest pain, nonspecific COMPARISON: Chest and rib radiographs 07/25/2023 TECHNIQUE: AP view the chest FINDINGS: Cardiac silhouette is mildly enlarged. Pulmonary vascular congestion. Small pleural effusions with subsegmental bibasilar densities. No pneumothorax. Bones appear grossly intact. IMPRESSION: 1. Cardiomegaly with pulmonary vascular congestion. 2. Small pleural effusions with bibasilar opacities favoring atelectasis. ACT 112: Negative or not required by law. The above report was generated using voice recognition software. It may contain grammatical, syntax or spelling errors. Electronically signed by: Baljit Mcfarlane M.D. 04/22/2025 2:01 PM Discharge Plan Visit Data Chief Complaint: Weakness Stated Complaint: TIA SYMPTOMS ED Provider: Ken Lutz Discharge Problem: Chest pain, Shortness of breath, Pancreatitis, Pleural effusion Condition: Fair Forms Stand Alone Forms: [employer] Prescriptions Prescriptions: No Action diclofenac sodium 75 mg tablet,delayed release (DR/EC) 75 mg PO BID PRN (Reason: pain) Qty: 30 1RF Rx Instructions: With meals lisinopril 5 mg tablet 5 mg PO QAM Qty: 90 3RF celecoxib [Celebrex] 200 mg capsule 200 mg PO BID PRN (Reason: pain) Qty: 60 1RF ciprofloxacin HCl 500 mg tablet 500 mg PO BID 5 Days Qty: 10 0RF Rx Instructions: PER PT'S FAMILY "NEVER STARTED" tamsulosin 0.4 mg capsule 0.4 mg PO DAILY Qty: 90 3RF Referrals Referrals: Sophie Greenberg MD [Primary Care Provider] - Discharge Problem: Chest pain Qualifiers: Chest pain type: unspecified Qualified Code(s): R07.9 - Chest pain, unspecified Pancreatitis Qualifiers: Chronicity: acute Pancreatitis type: unspecified pancreatitis type Acute pancreatitis complication: unspecified Qualified Code(s): K85.90 - Acute pancreatitis without necrosis or infection, unspecified
--- NOTE | 2025-04-22 15:06 | CT Scan Report ---
CT SCAN OF THE ABDOMEN AND PELVIS WITH IV CONTRAST CLINICAL HISTORY: Abdominal pain. COMPARISON STUDY: CT of the abdomen and pelvis November 21, 2021. KUB October 26, 2024. TECHNIQUE: Following the IV administration of 94 cc of Optiray 320, CT scan of the abdomen and pelvi s is performed from the lung bases to the proximal femora. Images are reviewed in the axial, sagittal , and coronal planes. IV contrast was administered without complication. A dose lowering technique wa s utilized adhering to the principles of ALARA. CT DOSE: 1471.61 mGy.cm FINDINGS: No pneumatosis, free air or portal venous gas is present. There is hepatic steatosis. There is no biliary ductal dilatation status post cholecystectomy. There is subtle stranding adjacent to t he pancreatic tail. There is no peripancreatic fluid collection. There is no pancreatic ductal dilata tion. Spleen and adrenal glands are unremarkable. There is marked bilateral renal cortical thinning. There is no hydronephrosis. A 4.3 cm left renal cyst is incidentally noted. There is an 8 mm left low er pole renal calculus. No ureteral calculi. Mild bladder wall thickening with minimal adjacent stran ding is unchanged. The bladder wall is slightly trabeculated. The appendix is normal. There is no mayelin dence for a bowel obstruction. There is colonic diverticulosis. There is no lymphadenopathy. No fluid collections are present. IMPRESSION: 1. Subtle stranding adjacent to the pancreatic tail suggestive of acute pancreatitis. No peripancreat ic fluid collection. 2. No biliary ductal dilatation status post cholecystectomy. 3. Left nephrolithiasis. No ureteral calculi. 4. Colonic diverticulosis. 5. No bowel obstruction. ACT 112: Negative or not required by law. Electronically signed by: Kelby Chamberlain M.D. 04/22/2025 3:04 PM
[2025-04-22] MEDS: POTASSIUM CHLORIDE 10 MEQ TABCR PO STA (15:09)
[2025-04-22] MEDS: ASPIRIN CHEW 324 MG PO STA (15:09)
--- NOTE | 2025-04-22 15:28 | Electrocardiogram Report ---
Test Reason : Blood Pressure : */* mmHG Vent. Rate : 75 BPM Atrial Rate : 75 BPM P-R Int : 170 ms QRS Dur : 136 ms QT Int : 410 ms P-R-T Axes : -39 -12 261 degrees QTcB Int : 457 ms Normal sinus rhythm Non-specific intra-ventricular conduction block Nonspecific T wave abnormality Abnormal ECG When compared with ECG of 18-Apr-2025 15:48, Ectopic atrial rhythm has replaced Sinus rhythm T wave inversion now evident in Inferior leads Nonspecific T wave abnormality has replaced inverted T waves in Lateral leads Confirmed by Lawrence Castaneda ([id number]) on 04/22/2025 3:28:20 PM Referred By: REFERRED SELF Confirmed By: Lawrence Castaneda
[2025-04-22 15:53] LABS: Amylase 27.0 U/L (25-115)
--- NOTE | 2025-04-22 16:55 | History & Physical Report ---
Date of Service April 22, 2025 Assessment & Plan (1) Dizziness: (2) Hypokalemia: Plan Assessment Joshua is an 84 year-old male with PMH of HTN, asthma and BPH presenting for dizziness and increased blurry vision. He was recently seen in the ED on 04/18/25, for similar symptoms in addition to diarrhea and was found to be hypokalemic. Workup was otherwise negative and he received potassium and fluid repletion. He is stable on exam and his labs show hypokalemia, similar to his last presentation. He has had decreased eating and drinking this week as he recovers from his GI issues earlier in the week with chronic hypokalemia. Presentation most likely as a result of hypokalemia and dehydration, but there is a possible underlying cardiac issue that further workup is warranted for given that CXR showed cardiomegaly with pulmonary vascular congestion and small pleural effusions with bibasilar opacities favoring atelectasis. Plan #Dizziness and blurry vision Assessment: These symptoms are likely due to decreased fluids and food intake due to ongoing recovery from GI issues and dental work from January that have decreased his PO intake with underlying chronic hypokalemia. However head and neck pathology could not be ruled out and requires rule out with imaging. Cardiac imaging ordered as well due to hx of HTN and CXR findings of cardiomegaly and pulmonary vascular congestion. Plan: - K+ 3.0 on admission, potassium chloride given in the ED for repletion - CMP q4h and K+ repletion until K+ stabilizes - 1L of NS administered in the ED - Head and neck CT, carotid duplex ordered - ECHO, lipid panel, CBC for cardiac workup - PT/OT consulted #Chronic SOB Assessment: Likely due to hx of asthma and pt denies increased work of breathing SOB or wheezing today/past week, not currently on any asthma meds. Plan: - Monitor SpO2 and re-assess clinically as needed for SOB, wheezing, increased work of breathing - Gentle hydration may be considered given imaging showing pleural effusion/vascular congestion #Pancreatic stranding on CT Assessment: CT of Abdomen showed subtle stranding adjacent to the pancreatic tail suggestive of acute pancreatitis, which could be likely due to inflammation secondary to recent diarrhea/GI recovery. Low concern for pancreatitis given normal lipase and lack of chest pain. Plan: - Continue to monitor symptoms #HTN Plan: Continue home dose of lisinopril for HTN. #BPH Plan: Continue home dose of tamsulosin for BPH. Admission and Anticipated Discharge Date Admission Date: 04/22/2025 History of Present Illness Chief Complaint: He has had dizziness and blurry vision since the morning when he was working on his tractor. Primary Care Provider: Sophie Greenberg MD 84 year-old male with PMH of asthma, HTN, and BPH for a few hour history of blurry vision and shortness of breath. 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 He has not had any other history of cardiac, neurological, or pulmonary conditions and recalls similar feelings to his previous ED visit on Friday when he presented for severe diarrhea and dizziness. He was found to have hypokalemia, for which he received potassium repletion and fluids at the time (infectious workup negative) and the diarrhea has resolved since then. His food and fluid intake has been decreased this past week due to recovery from his GI issues earlier this week. He also felt abdominal pain and muscle weakness throughout his legs bilaterally, which have since resolved from the time her arrived to the ED. Has a hx of cataract surgery, with which he has baseline dizziness, but he noted today to be worse. Overall, he has had decreased PO intake since January due to dental work and family mentioned that his PO intake has been decreased since then and especially this week while he has been recovering from his GI issues. Denies alcohol and drug use, has chewed tobacco (half a can) daily since he was a teen and smoked tobacco for 10-20 years many years ago (pack year hx unknown). He denies feeling like he was going to pass out and denies chest pain, headaches, nausea, vomiting, slurred speech, loss of vision, numbness, tingling, increased urinary frequency, dysuria, diarrhea, tick/snake bites, recent illnesses, history of stroke, hyperlipidemia, and diabetes. He has a history of chronic hypokalemia, not on any diuretics and takes lisinopril for his BP in addition to tamsulosin for BPH. Family is unsure how his BP runs at home, but pt denies any blurry vision, headaches, or dizziness that is chronic. Allergies Allergy/AdvReac Type Severity Reaction Status Date / Time amoxicillin [From Augmentin] AdvReac Intermediate Diarrhea Verified 04/22/25 15:04 clavulanic acid AdvReac Intermediate Diarrhea Verified 04/22/25 15:04 [From Augmentin] doxycycline AdvReac Intermediate GI SYMPTOMS Verified 04/22/25 15:04 Home Medications Medication Instructions Recorded Confirmed Type celecoxib 200 mg capsule (Celebrex) 200 mg PO BID PRN pain #60 caps 11/19/24 04/22/25 Rx diclofenac sodium 75 mg 75 mg PO BID PRN pain #30 tabs 11/24/24 04/22/25 Rx tablet,delayed release lisinopril 5 mg tablet 5 mg PO QAM #90 tabs 12/24/24 04/22/25 Rx tamsulosin 0.4 mg capsule 0.4 mg PO DAILY #90 caps 01/07/25 04/22/25 Rx ciprofloxacin HCl 500 mg tablet 500 mg PO BID 5 days #10 tabs 04/18/25 04/22/25 Rx Past Med/Surg History Problem List (Updated 04/22/25 @ 19:02 by Madeline Pleitez) Dizziness (Acute) Gait disturbance Hypokalemia (Acute) Shortness of breath (Acute) Pleural effusion (Acute) Asthma (Chronic) Hypertension Low back pain Hip pain, right Mild cognitive impairment Obesity Insomnia BPH (benign prostatic hyperplasia) (Chronic) Impaired fasting glucose (Chronic) Anxiety (Acute) Depression (Chronic) GERD without esophagitis (Chronic) Irritable bowel syndrome (Acute) Medical History (Updated 04/22/25 @ 19:02 by Madeline Pleitez) Transaminitis Near syncope Prostatitis Urinary hesitancy Hypokalemia Solitary pulmonary nodule Surgical History S/P laparoscopic cholecystectomy 09/26/21 H/O repair of rotator cuff H/O knee surgery Family History Family/Other No problems noted. Other No pertinent family history Denies family history of Ovarian cancer Prostate cancer Diabetes Myocardial infarction Breast cancer Colorectal cancer Hypertension Social History Smoking Status: Current every day smoker Tobacco Type: Smokeless Tobacco (Dip or Chew) Age Started Using Tobacco: 17; Age Quit Using Tobacco: 30; packs per day: 0.2; Second Hand Exposure: No; Do You Dip or Chew Tobacco: Yes; Hx Alcohol Use: No Hx Substance Use: No Preferred Language: Sami Communication Ability: Effective Visual Impairment: No Limitations Hearing Ability: Hard of Hearing Assistant At Surgery Required: No Beliefs That Will Affect Care: None marital status: Current Living Situation: Alone Current Living Situation Comment: pt states his daughter jessica lives nearby and is able to help care for him current occupational status: retired How many Children do You have: 2 Feels Safe at Home: Yes Childhood Exposure to Second-Hand Smoke: Yes Diet: regular caffeine: Yes (soda) during the past year weight has: remained stable Dental Care, Regularly: No Physical Activity Frequency: Does not Exercise Seatbelt Use: never Sunscreen Use: No Do you think of yourself as: straight/heterosexual Sexual Activity: has been sexually active, but not for at least 12 months Gender Identity: Male Assistive Devices: None Review of Systems Review of Systems: As noted in HPI. Physical Exam 2 Physical Exam: General: In no acute distress. HEENT: Head is atraumatic and normocephalic. PERRLA. No cervical lymphadenopathy. No JVD. Moist oral mucosa. Lips are dry. CV: S1 and S2 sounds present. No murmurs, rubs, or gallops. RRR. Resp: CTA B/L. No rales, wheezing, or rhonchi. GI: Normoactive bowel sounds. No tenderness to palpation. No masses appreciated. MSK: No signs of peripheral edema. His upper extremities are very dickerson b/l. No abnormal lesions visualized. Psych: Appropriate mood and affect. AxO4. Neuro: CN 2-12 intact. Strength 5/5. Sensation and proprioception intact bilaterally in lower and upper extremities. Results & Data Results & Data Vital Signs (Past 12 Hours) Vital Signs Temp Pulse Pulse Resp BP BP Pulse Ox 04/22/25 15:21 74 20 145/93 H 96 04/22/25 13:46 74 04/22/25 13:35 95 04/22/25 13:31 36.8 C 75 18 128/88 96 O2 Del Method 04/22/25 15:21 Room Air 04/22/25 13:46 04/22/25 13:35 Room Air 04/22/25 13:31 Room Air Code Status & VTE Plan Code Status Full code VTE Prophylaxis Plan VTE Prophylaxis will be ordered: Yes Supervising Physician Co-Signing Physician Notes Attending attestation Pt seen and examined in concert with St. Dr. Maik Mora. In agreement with the documented findings as noted in the resident documentation with any exceptions or additions as noted here. Resting in bed without symptoms at present, concerned for positional dizziness but none as yet in hospital. Does report has been outside working, hydrating at baseline, no further significant bowel movements but also not eating well because he has no teeth currently. VS as noted. On examination, S1/S2 nl RRR no MCG. CTAB. Abd NT/ND BS+ve Dizziness/lightheadedness - likely some dehydration from recent GI illness vs. underlying cardiac cause - agree w/ labs, echo, carotid duplex, CT head. PT/OT consult. Hypokalemia - repleted PO and continue to trend and replete Chronic SOB in the setting of asthma - imaging w/ pleural effusion/congestion, monitor O2 sat and gently hydrate Pancreatic stranding on CT - likely related to recent GI illness w/ nl lipase and WBC Else see resident documentation as noted.
--- NOTE | 2025-04-22 17:08 | CT Scan Report ---
Clinical History: Dizziness and blurred vision. Technique: Axial computed tomography images were obtained of the brain from the vertex to the skull base without intravenous contrast. Findings: There is no sign of intracranial hemorrhage. There is normal francois-white matter differentiation with no sign of acute or old infarction. No midline shift or other form of herniation is identified. There is no hydrocephalus. No obvious mass lesion is seen on this noncontrast examination. The visualized portions of the orbits and paranasal sinuses appear unremarkable. The mastoid air cells appear clear Impression: Unremarkable noncontrast CT of the brain Electronically signed by Ming Tom 04-22-2025 5:07 PM
[2025-04-22] MEDS ORDERED: ONDANSETRON INJ 2 MG/ML 2 ML VIAL IV PRN (17:32)
[2025-04-22] MEDS ORDERED: POLYETHYLENE (MIRALAX) 17 GM PACK PO PRN (17:32)
[2025-04-22] MEDS ORDERED: NITROGLYCERIN SL 0.4 MG/TAB TAB SL PRN (17:32)
[2025-04-22] MEDS ORDERED: ACETAMINOPHEN 325 MG TAB PO PRN (17:32)
[2025-04-22] MEDS ORDERED: MELATONIN 3 MG TAB PO PRN (17:32)
[2025-04-22 19:03] LABS: Anion Gap 7.0 (3-11); Blood Urea Nitrogen 9.0 mg/dl (6-23); Calcium 8.4 mg/dl (8.6-10.3); Carbon Dioxide 28.0 mmol/L (21-32); Chloride 109.0 mmol/L (98-107); Creatinine Clr Calc Pharmacy 52.2 ml/min; Glucose 100.0 mg/dl (70-99(Fasting)); Potassium 3.1 mmol/L (3.5-5.1); Sodium 144.0 mmol/L (136-145)
[2025-04-22] MEDS: POTASSIUM CHLORIDE CRTAB 20 MEQ TABCR PO STA (19:32)
[2025-04-22] MEDS: ENOXAPARIN INJ 40 MG/0.4 ML SYR SQ SCH (19:34)
--- NOTE | 2025-04-22 23:19 | Ultrasound Report ---
Exam(s): US CAROTID EXAM: US Duplex Bilateral Extracranial Arteries CLINICAL HISTORY: Dizziness, blurry vision,. TECHNIQUE: Real-time duplex ultrasound scan of the extracranial arteries integrating B-mode two-dimensional vascular structure, Doppler spectral analysis and color flow Doppler imaging. COMPARISON: No relevant prior studies available. FINDINGS: Right common carotid artery: The peak systolic velocity of the right common carotid artery is 78 cm/s. There is spectral broadening. No occlusion or significant stenosis on color flow and spectral Doppler imaging. Right internal carotid artery: The peak systolic velocity of the right internal carotid artery is 65 cm/s. There is spectral broadening. No occlusion or significant stenosis on color flow and spectral Doppler imaging. Right external carotid artery: Unremarkable. No occlusion or significant stenosis on color flow and spectral Doppler imaging. Right vertebral artery: Unremarkable. Antegrade flow. Right ICA/CCA ratio: The right ICA/CCA ratio is 0.7. Left common carotid artery: The peak systolic velocity of the left common carotid artery is 90 cm/s. There is spectral broadening. No occlusion or significant stenosis on color flow and spectral Doppler imaging. Left internal carotid artery: The peak systolic velocity of the left internal carotid artery is 54 cm/s. There is spectral broadening. No occlusion or significant stenosis on color flow and spectral Doppler imaging. Left external carotid artery: Unremarkable. No occlusion or significant stenosis on color flow and spectral Doppler imaging. Left vertebral artery: Unremarkable. Antegrade flow. Left ICA/CCA ratio: The left ICA/CCA ratio is 0.6. Lymph nodes: Unremarkable. No lymphadenopathy. CAROTID STENOSIS REFERENCE USING IAC CRITERIA: Mild - <50% stenosis. ICA PSV is less than 180 cm/s and plaque or intimal thickening is visible. Moderate - 50-69% stenosis. ICA PSV is 180 to 230 cm/s and plaque is visible. Severe - 70-94% stenosis. ICA PSV is more than 230 cm/s and visible plaque with lumen narrowing is seen. Near occlusion - 95-99% stenosis. ICA PSV is variable and significant plaque with luminal narrowing is seen. Occluded - 100% stenosis. No flow identified. IMPRESSION: No hemodynamically significant stenosis by ratio or velocity criteria. Electronically signed by: Lizet Quinones MD 04/22/25 23:18 PM
[2025-04-23 00:33] LABS: Appearance Urine Clear (Clear); Glucose Urine UA Negative (Negative)
[2025-04-23 01:13] LABS: Anion Gap 5.0 (3-11); Blood Urea Nitrogen 8.0 mg/dl (6-23); Calcium 8.2 mg/dl (8.6-10.3); Carbon Dioxide 28.0 mmol/L (21-32); Chloride 110.0 mmol/L (98-107); Creatinine Clr Calc Pharmacy 52.2 ml/min; Glucose 98.0 mg/dl (70-99(Fasting)); Potassium 3.4 mmol/L (3.5-5.1); Sodium 143.0 mmol/L (136-145)
[2025-04-23 07:31] LABS: Hematocrit (blood only) 36.6 % (42.0-52.0); Hemoglobin 12.2 g/dl (14.0-18.0); Immature Granulocytes # (auto) 0.03 K/uL (0.01-0.20); Immature Granulocytes % (auto) 0.4 %; Mean Corpuscular Hemoglobin 31.4 pg (25.0-34.0); Mean Corpuscular Volume 94.3 fL (80.0-100.0); Platelet Count 261 K/uL (130-400); RDW Standard Deviation 49.9 fL (36.4-46.3); Red Blood Count 3.88 M/uL (4.70-6.10); White Blood Count 7.03 K/ul (4.8-10.8)
--- NOTE | 2025-04-23 07:46 | Hospitalist Progress Note ---
Date of Service April 23, 2025 Assessment & Plan Admission and Anticipated Discharge Date Admission Date: April 22, 2025 Supervising Physician Co-Signing Physician Notes Attending attestation Pt seen and examined in concert with St. Dr. Maik Mora. In agreement with the documented findings as noted in the resident documentation with any exceptions or additions as noted here. Resting in bed without symptoms at present, concerned for positional dizziness but none as yet in hospital. Does report has been outside working, hydrating at baseline, no further significant bowel movements but also not eating well because he has no teeth currently. VS as noted. On examination, S1/S2 nl RRR no MCG. CTAB. Abd NT/ND BS+ve Dizziness/lightheadedness - likely some dehydration from recent GI illness vs. underlying cardiac cause - agree w/ labs, echo, carotid duplex, CT head. PT/OT consult. Hypokalemia - repleted PO and continue to trend and replete Chronic SOB in the setting of asthma - imaging w/ pleural effusion/congestion, monitor O2 sat and gently hydrate Pancreatic stranding on CT - likely related to recent GI illness w/ nl lipase and WBC Else see resident documentation as noted. Results & Data Results & Data Vital Signs (Past 12 Hours) Vital Signs Temp Pulse Pulse Resp BP Pulse Ox O2 Del Method 04/23/25 03:39 36.5 C 70 16 150/82 H 96 Room Air 04/22/25 23:06 Room Air 04/22/25 21:47 56 L 04/22/25 19:51 36.2 C L 71 18 150/83 H 94 Room Air
[2025-04-23 07:54] LABS: Alanine Aminotransferase 8.0 U/L (7-52); Albumin Globulin Ratio 1.3 (0.9-2); Alkaline Phosphatase 117.0 U/L (34-104); Anion Gap 5.0 (3-11); Bilirubin,Total 0.4 mg/dl (0.2-1.0); Blood Urea Nitrogen 8.0 mg/dl (6-23); Calcium 8.2 mg/dl (8.6-10.3); Carbon Dioxide 28.0 mmol/L (21-32); Chloride 111.0 mmol/L (98-107); Cholesterol 97.0 mg/dl (0-200); Creatinine Clr Calc Pharmacy 53.6 ml/min; Globulin 2.3 gm/dl (2.5-4.0); Glucose 98.0 mg/dl (70-99(Fasting)); HDL Cholesterol 22.0 mg/dl; Potassium 3.4 mmol/L (3.5-5.1); Sodium 144.0 mmol/L (136-145); Total Protein 5.3 gm/dl (6.0-8.3); Triglycerides 93.0 mg/dl (0-150)
[2025-04-23] MEDS: POTASSIUM CHLORIDE CRTAB 20 MEQ TABCR PO STA (08:46)
[2025-04-23] MEDS: TAMSULOSIN HCL 0.4 MG CAP PO SCH (08:46)
--- NOTE | 2025-04-23 10:39 | Discharge Summary ---
Date of Service April 23, 2025 Admission HPI Per Admitting Provider 84 year-old male with PMH of asthma, HTN, and BPH for a few hour history of blurry vision and shortness of breath. 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 He has not had any other history of cardiac, neurological, or pulmonary conditions and recalls similar feelings to his previous ED visit on Friday when he presented for severe diarrhea and dizziness. He was found to have hypokalemia, for which he received potassium repletion and fluids at the time (infectious workup negative) and the diarrhea has resolved since then. His food and fluid intake has been decreased this past week due to recovery from his GI issues earlier this week. He also felt abdominal pain and muscle weakness throughout his legs bilaterally, which have since resolved from the time her arrived to the ED. Has a hx of cataract surgery, with which he has baseline dizziness, but he noted today to be worse. Overall, he has had decreased PO intake since January due to dental work and family mentioned that his PO intake has been decreased since then and especially this week while he has been recovering from his GI issues. Denies alcohol and drug use, has chewed tobacco (half a can) daily since he was a teen and smoked tobacco for 10-20 years many years ago (pack year hx unknown). He denies feeling like he was going to pass out and denies chest pain, headaches, nausea, vomiting, slurred speech, loss of vision, numbness, tingling, increased urinary frequency, dysuria, diarrhea, tick/snake bites, recent illnesses, history of stroke, hyperlipidemia, and diabetes. He has a history of chronic hypokalemia, not on any diuretics and takes lisinopril for his BP in addition to tamsulosin for BPH. Family is unsure how his BP runs at home, but pt denies any blurry vision, headaches, or dizziness that is chronic. Principal Diagnosis DIzzyness, Hypokalemia Discharge Data Allergies Allergy/AdvReac Type Severity Reaction Status Date / Time amoxicillin [From Augmentin] AdvReac Intermediate Diarrhea Verified 04/22/25 15:04 clavulanic acid AdvReac Intermediate Diarrhea Verified 04/22/25 15:04 [From Augmentin] doxycycline AdvReac Intermediate GI SYMPTOMS Verified 04/22/25 15:04 Consultations 04/22/25 14:50 ED Decision to Admit Stat Ordered Studies 04/22/25 13:28 CT abd pelvis IV con only Stat 04/22/25 15:47 CT head/brain wo con Stat Carotid duplex [US carotid doppler BI] Routine Hospital Course (1) Dizziness: (2) Hypokalemia: Plan Plan Assessment Joshua is an 84 year-old male with PMH of HTN, asthma and BPH presenting for dizziness and increased blurry vision. He was recently seen in the ED on 04/18/25, for similar symptoms in addition to diarrhea and was found to be hypokalemic. Workup was otherwise negative and he received potassium and fluid repletion. He is stable on exam and his labs show hypokalemia, similar to his last presentation. He has had decreased eating and drinking this week as he recovers from his GI issues earlier in the week with chronic hypokalemia. Presen tation most likely as a result of hypokalemia and dehydration, cardiac workup was done to rule out other causes. Plan #Dizziness and blurry vision Assessment: These symptoms are likely due to decreased fluids and food intake due to ongoing recovery from GI issues and dental work from January that have decreased his PO intake with underlying chronic hypokalemia. -CT head and neck and carotid duplex were unremarkable; Echo showed left ventricular hypertrophy and Grade I diastolic dysfunction. -Symptoms secondary dehydration and hypokalemia -Potassium was replaced and IV fluids were given -Pt was discharge with Potassium 20 mequivalent PO daily x 7 days -BMP ordered 3 days, and close follow up with PCP #Chronic SOB - Consider follow up with PCP - assess continuing need for supplemental breathing relief - inhaler - for future #Pancreatic stranding on CT - CT of Abdomen showed subtle stranding adjacent to the pancreatic tail suggestive of acute pancreatitis, - Inflammation potentially secondary to recent diarrhea/GI recovery. - #HTN Plan: Continue home dose of lisinopril for HTN. #BPH Plan: Continue home dose of tamsulosin for BPH. Admission and Anticipated Discharge Date Admission Date: 04/22/2025 Total Time Total Time Spent Total Time Spent (In Minutes): See attending documentation Discharge Plan Discharge Items Patient Disposition: Home - Self-Care Reason For Visit: ABDOMINAL PAIN/ SOB Discharge Diagnosis: Hypokalemia Condition on Discharge: Good Activity: As commented below Non-emergency contact: Primary Care Provider Call non-emergency contact if: you have any medication questions and your symptoms worsen Follow-up/Referrals: Sophie Greenberg MD [Primary Care Provider] - Diet: Regular Ambulatory Orders: Basic Metabolic Panel (Routine) Timeframe: 1 Week Location: Determined by Patient Ordered By: Marta Mcclain Attending Provider Instructions: You were admitted to the hospital for dizziness and abdominal pain. You were found with low levels of potassium which was replaced. -We are sending you home with a prescription of 20 mg po potassium to be taken for the next 7 days (1 tab per day). Please follow up with your PCP in one week's time. Will order Blood work for repeat levels in a week to discussed with yout PCP A discharge summary will be sent to your primary care physician to ensure continuity of care. Please bring this discharge summary with you to your next office appointment so that your provider can review it at that time. Medications: Your medication list has been reviewed and reconciled upon discharge to ensure accuracy and continuity of care. An updated list of all your medications is included with your hospital discharge paperwork. Please review this list closely and make note of any changes to your medications. Follow up appointments: - Make a follow up appointment with your PCP within the next week. It is very important that you follow up with them shortly after discharge from the hospital. - Keep all of your follow up appointments as already scheduled. If you cannot make an appointment, notify your provider. CONTACT YOUR PRIMARY CARE PROVIDER if you experience any of the following: - Difficulty following your treatment plan - Difficulty taking any of your medications CALL 911 OR GO TO THE EMERGENCY DEPARTMENT if you experience any of the following: - Sudden, severe abdominal pain or nausea/vomiting - Severe chest pain or chest pain that radiates to your jaw or arm - Sudden, severe shortness of breath or difficulty breathing Pending Studies at Discharge: Yes Studies:: Give Blood for Basic Metabolic Panel by midweek Stand-Alone Forms: My yuback, Smoking Cessation Medications and DC Order Prescriptions: New potassium chloride 20 mEq tablet extended release 20 meq PO DAILY Qty: 7 0RF Continued diclofenac sodium 75 mg tablet,delayed release (DR/EC) 75 mg PO BID PRN (Reason: pain) Qty: 30 1RF Rx Instructions: With meals lisinopril 5 mg tablet 5 mg PO QAM Qty: 90 3RF tamsulosin 0.4 mg capsule 0.4 mg PO DAILY Qty: 90 3RF Discontinued celecoxib [Celebrex] 200 mg capsule 200 mg PO BID PRN (Reason: pain) Qty: 60 1RF ciprofloxacin HCl 500 mg tablet 500 mg PO BID 5 Days Qty: 10 0RF Rx Instructions: PER PT'S FAMILY "NEVER STARTED" Discharge Orders: Discharge Order (Routine); Ordered 04/23/25 Ordered By: Marta Harper Admission Data Admit Date/Time: 04/22/25 15:30 Attending Provider: Lawrence Will Admit Provider: Lawrence Will Primary Care Provider: Sophie Greenberg Other Providers: Lawrence Will Other Interventions: Discharge Summary Assessment (RN) Last Done: 04/23/25 15:01 Supervising Physician Co-Signing Physician Notes Attending attestation Pt seen and examined in concert with Dr. Hola Harper and Melissa. In agreement with the documented findings as noted in the resident documentation with any exceptions or additions as noted here. Resting in bed without symptoms at present and reports no positional dizziness with ambulation in room. Has follow up for teeth on friday, PCP on friday. VS as noted. On examination, S1/S2 nl RRR no MCG. CTAB. Abd NT/ND BS+ve Dizziness/lightheadedness - likely dehydration from recent GI illness - resolved. Echo, carotid duplex, CT head without findings causative for sx. Hypokalemia - repleted PO and improved. Recommend check BMP at follow up. Encourage avoid working in the heat, hydration. Chronic SOB in the setting of asthma - stable from presentation and prior with nl SpO2 Pancreatic stranding on CT with negative lipase, no symptoms reported - possibly related to recent GI illness. Precautions reviewed and close monitoring with primary care team recommended. Else see resident documentation as noted. Total attending physician time spent with this patient's care on the day of discharge: 40 minutes.
[2025-04-23 11:08] VITALS: BP 148/79; RESP 18; TEMP 98.1; O2SAT 96
[2025-04-23 15:02] VITALS: PULSE 59
--- NOTE | 2025-04-23 15:11 | Communication Note ---
Date of Service: April 23, 2025 By CMS guidelines, a determination that the admission or continued stay is not medically necessary has been made by a member of the UR committee and a physi joe for this hospital stay, therefore a Code 44 will be completed and the Inpatient admission will be changed to outpatient.
--- NOTE | 2025-05-02 13:16 | Coding Query ---
A supporting diagnosis is required for the test/procedure performed on this patient in order for us to be reimbursed by the patient's insurance. Please provide a supporting diagnosis for the following test/procedure listed below next to the test name. *If there is no additional diagnosis for this patient that would support the following test/procedure please document that below next to the test/procedure. Test(s)/Procedure(s) that require a supporting diagnosis: * [id number] CAROTID DOPPLER DIAGNOSIS: R53.1, H53.8 DATE OF SERVICE: 04/22/25 Thank you [facility] Information Management Once completed, please kindly fax back to [phone] For questions please call [phone] [facility]
== END 2025-04-23 15:26 | disposition home or self-care (01) ==
LOC: ED 13:21 → INTOOBSV 15:30 → 2N 15:30 → SUATTDRO 15:30 → 2N 16:57